=== PATIENT | male | born 1945 | race Caucasian/White ===

== ENCOUNTER 2018-01-16 18:38 | Inpatient (IN) ==
[2018-01-16] MEDS ORDERED: 0.9 % Sodium Chloride 1,000 ML ONE ×2 (18:41→18:56)
[2018-01-16] MEDS ORDERED: *HR* Heparin 5,000 UNIT/ML VIAL ONE (18:41)
[2018-01-16] MEDS ORDERED: Aspirin 81 MG TAB.CHEW PO ONE (18:43)
[2018-01-16] MEDS ORDERED: *HR* Heparin 5,000 UNIT/ML VIAL IVP ONE (18:43)
[2018-01-16] MEDS ORDERED: *HR* Ticagrelor 90 MG TABLET PO ONE (18:43)
[2018-01-16] MEDS ORDERED: Aspirin 81 MG TAB.CHEW ONE (18:43)
[2018-01-16] MEDS ORDERED: *HR* Heparin 5,000 UNIT/ML VIAL IVP PRN ×2 (18:43)
[2018-01-16] MEDS ORDERED: *HR* Ticagrelor 90 MG TABLET ONE (18:43)
[2018-01-16] MEDS ORDERED: Heparin 25,000 UNIT/500 ML D5W 25,000 UNIT/500 ML BAG IVC SCH (18:45)
--- NOTE | 2018-01-16 18:56 | Emergency Department Note ---
Disposition Clinical Impression: STEMI (ST elevation myocardial infarction) Qualifiers: Involved coronary artery: right coronary artery Qualified Code(s): I21.11 - ST elevation (STEMI) myocardial infarction involving right coronary artery Disposition: Admitted As Inpatient Condition: Fair Chest Pain HPI - General Chief Complaint: ED Chest Pain Stated Complaint: STEMI Time Seen by Provider: 01/16/18 18:43 Source: EMS Mode of arrival: ambulatory Limitations: no limitations Vital Signs Reviewed: Yes Nursing Notes Reviewed: Yes - History of Present Illness HPI Narrative: 72-year-old male with extensive past history of hypertension, CAD status post bypass wallstents, diabetes presents for evaluation of chest pain. Patient notes onset of chest pain was 10 minutes prior to ED arrival. Notes pain in the center of his chest rated 10 out of 10. EMS report the patient received 2 nitroglycerin which improved his pain. Patient had a prehospital EKG which was concerning for STEMI and STEMI was activated. Patient denies a nausea vomiting or diaphoresis. Does note some dyspnea. No fevers or cough. Severity scale (1-10): 7 - Related Data Home Medications Medication Instructions Recorded Confirmed Albuterol Sulfate [Proair 2 puff IH Q4H PRN 03/24/15 01/05/18 Respiclick] Budesonide/Formoterol 160/4.5 2 puff IH BIDR 03/24/15 01/05/18 [Symbicort] Metoprolol XL (24 HR) Succ [Toprol 100 mg PO DAILY 03/24/15 01/05/18 XL] Nitroglycerin [Nitrostat] 0.4 mg SL PRN PRN 03/24/15 01/05/18 Ergocalciferol (VITAMIN D2) 50,000 unit PO QWEEK 05/26/15 01/05/18 [Vitamin D2 (50,000 UNIT)] Aspirin 81 mg PO DAILY 09/22/15 01/05/18 Bumetanide [Bumex] 2 mg PO DAILY 07/22/16 01/05/18 Cyanocobalamin (B-12) [Vitamin B12] 1,000 mcg IM QMONTH 07/22/16 01/05/18 Diltiazem CD (24hr) [Cardizem CD] 120 mg PO DAILY 07/22/16 01/05/18 Gabapentin [Neurontin] 300 mg PO BID 07/22/16 01/05/18 Insulin Lispro Protamin/Lispro 8 unit SQ QPM 07/22/16 01/05/18 [Humalog Mix 75-25 Vial] Insulin Lispro Protamin/Lispro 16 unit SQ QAM 07/22/16 01/05/18 [Humalog Mix 75-25 Vial] Ipratropium/Albuterol Neb [Duoneb] 3 ml IH Q6HR PRN 07/22/16 01/05/18 Potassium Chloride [Klor-Con 10 meq PO BID 07/22/16 01/05/18 Sprinkle] Repaglinide [Prandin] 1 mg PO BID 07/22/16 01/05/18 Saxagliptin HCl [Onglyza] 2.5 mg PO DAILY 07/22/16 01/05/18 Insulin Glargine,Hum.rec.anlog 56 unit SQ QAM 01/11/17 01/05/18 [Lantus Solostar] Azelastine 0.1% Nasal [place] 1 puff NS BID 11/15/17 01/05/18 [Astelin] Previous Rx's Medication Instructions Recorded Levothyroxine [Synthroid] 150 mcg PO DAILY #30 tablet 07/05/17 Dexamethasone 1 mg PO DAILY #90 tab 09/06/17 Ondansetron HCl [Zofran] 4 mg PO Q8H PRN #30 tablet 09/06/17 HYDROcodone BIT/Homatropine LQ 5 mg PO Q6H PRN 14 Days #240 ml 01/05/18 [Hycodan Syrup] Miconazole 2% cream [Remedy 5 ml TP TID #1 bottle 01/05/18 Antifungal] Oxycodone HCl/Acetaminophen 1 each PO Q4H PRN 30 Days #90 01/05/18 [Percocet 5-325 mg Tablet] tablet Allergies Allergy/AdvReac Type Severity Reaction Status Date / Time Amoxicillin Allergy Hives Verified 01/16/18 18:39 adhesive AdvReac Rash Verified 01/16/18 18:39 All systems ED: reviewed and negative except as stated. Constitutional: Denies: fever Cardiovascular: Reports: chest pain Respiratory: Reports: dyspnea Gastrointestinal: Denies: abdominal pain, nausea, vomiting Chest Pain PMH - Past Medical History Medical history: Reports: cancer, coronary artery disease, DVT, diabetes, hyperlipidemia, hypertension, migraine, myocardial infarction, other Surgical history: Reports: cataract, coronary bypass (CABG), orthopedic, other, other Psychiatric history: Reports: no psych history - Social History Smoking Status: Former smoker Alcohol use: Reports: none, recent Drug use: Reports: none Physical Exam - General Limitations: no limitations General appearance: alert, in no apparent distress, in distress - Head Head exam: atraumatic, normocephalic, normal inspection - Eye Eye exam: Present: normal appearance, PERRL, EOMI - ENT ENT exam: normal exam, mucous membranes moist - Neck Neck exam: Present: normal inspection, full ROM, trachea midline - Chest Chest inspection: Present: normal inspection, symmetric chest wall rise - Respiratory Respiratory exam: Present: normal lung sounds bilaterally. Absent: respiratory distress - Cardiovascular Cardiovascular exam: Present: regular rate, normal rhythm. Absent: systolic murmur - Abdominal Exam Abdominal exam: Present: soft, Non-Tender - Extremities Exam Extremities exam: Present: normal inspection, pedal edema (Trace bilateral) - Expanded Lower Extremity Exam Neurovascular/Tendon exam: Present: normal capillary refill - Neurological Exam Neurological exam: Present: alert - Skin Skin exam: Present: warm, dry, intact, normal color Course Course Narrative: Patient seen and examined. Patient does have a 12-lead concerning for inferior STEMI. This was discussed again with the furnace door tender. Patient had STEMI orders activated. Patient's blood pressure stable. Patient is requiring increased oxygen requirement from his baseline. 6 L nasal cannula currently. Patient denies any history of GI bleeding or recent blood in his stool or dark stools. Patient will be heparinized as well as given antiplatelet medications prior to intervention. - Consultations Consultation #1: Discuss the EKG with Shasta. Time: 18:59 Vital Signs Temperature 98.2 F 01/16/18 18:40 Pulse Rate 100 01/16/18 18:40 Respiratory Rate 22 01/16/18 18:40 Blood Pressure 108/60 01/16/18 18:40 O2 Sat by Pulse Oximetry 92 01/16/18 18:40 Temperature 98.4 F 01/16/18 20:15 Pulse Rate 84 01/16/18 20:15 Respiratory Rate 16 01/16/18 20:15 Blood Pressure 139/77 01/16/18 20:15 O2 Sat by Pulse Oximetry 95 01/16/18 20:15 Oxygen Delivery Oxygen Delivery Nasal Cannula Chest Pain - MDM Narrative Medical decision making narrative: Patient as well as family is aware of the patient's STEMI. Patient will be taken to the Transit Planning Manager. - EKG Data EKG attestation: Yes I reviewed and interpreted this EKG. EKG shows normal: sinus rhythm Rate: normal Rhythm: NSR ST segment elevation in: II, III, aVF T wave inversions noted in: aVL, v1, v2, v3 Interpretation: acute CA
[2018-01-16] MEDS ORDERED: *HR* Heparin 10,000 UNIT/10 ML VIAL ONE (18:57)
[2018-01-16] MEDS ORDERED: Heparin 1,000 UNITS/500 mL 500 ML ONE (18:57)
[2018-01-16] MEDS ORDERED: ISOVUE-370 200 ML INFUS..BTL IV ONE ×2 (18:57→19:41)
[2018-01-16] MEDS ORDERED: Nitroglycerin 1,000 MCG/10 ML VIAL IV ONE (18:57)
--- NOTE | 2018-01-16 18:59 | Emergency Department Note ---
Disposition Clinical Impression: STEMI (ST elevation myocardial infarction) Disposition: Admitted As Inpatient General Adult HPI - General Chief complaint: ED Chest Pain Stated complaint: STEMI Time Seen by Provider: 01/16/18 18:43 Source: EMS - History of Present Illness Pain Scale: 7 - Related Data Home Medications Medication Instructions Recorded Confirmed Albuterol Sulfate [Proair 2 puff IH Q4H PRN 03/24/15 01/05/18 Respiclick] Budesonide/Formoterol 160/4.5 2 puff IH BIDR 03/24/15 01/05/18 [Symbicort] Metoprolol XL (24 HR) Succ [Toprol 100 mg PO DAILY 03/24/15 01/05/18 XL] Nitroglycerin [Nitrostat] 0.4 mg SL PRN PRN 03/24/15 01/05/18 Ergocalciferol (VITAMIN D2) 50,000 unit PO QWEEK 05/26/15 01/05/18 [Vitamin D2 (50,000 UNIT)] Aspirin 81 mg PO DAILY 09/22/15 01/05/18 Bumetanide [Bumex] 2 mg PO DAILY 07/22/16 01/05/18 Cyanocobalamin (B-12) [Vitamin B12] 1,000 mcg IM QMONTH 07/22/16 01/05/18 Diltiazem CD (24hr) [Cardizem CD] 120 mg PO DAILY 07/22/16 01/05/18 Gabapentin [Neurontin] 300 mg PO BID 07/22/16 01/05/18 Insulin Lispro Protamin/Lispro 8 unit SQ QPM 07/22/16 01/05/18 [Humalog Mix 75-25 Vial] Insulin Lispro Protamin/Lispro 16 unit SQ QAM 07/22/16 01/05/18 [Humalog Mix 75-25 Vial] Ipratropium/Albuterol Neb [Duoneb] 3 ml IH Q6HR PRN 07/22/16 01/05/18 Loratadine/Pseudophed (12 HR) 1 each PO DAILY 07/22/16 01/05/18 [Claritin D (12HR)] Potassium Chloride [Klor-Con 10 meq PO BID 07/22/16 01/05/18 Sprinkle] Repaglinide [Prandin] 1 mg PO BID 07/22/16 01/05/18 Saxagliptin HCl [Onglyza] 2.5 mg PO DAILY 07/22/16 01/05/18 Insulin Glargine,Hum.rec.anlog 56 unit SQ QAM 01/11/17 01/05/18 [Lantus Solostar] Azelastine 0.1% Nasal [place] 1 puff NS BID 11/15/17 01/05/18 [Astelin] Previous Rx's Medication Instructions Recorded Pen Needle, Diabetic [Sure Comfort] 1 each MC QMONTH #10 dis.needle 03/24/15 Syringe [Syringe] 3 ml IM QMONTH #10 syringe 03/24/15 Levothyroxine [Synthroid] 150 mcg PO DAILY #30 tablet 07/05/17 Dexamethasone 1 mg PO DAILY #90 tab 09/06/17 Ondansetron HCl [Zofran] 4 mg PO Q8H PRN #30 tablet 09/06/17 MethylPREDNISolone 4 mg PO AD #21 tab 12/05/17 [MethylPREDNISolone Dose Pack] HYDROcodone BIT/Homatropine LQ 5 mg PO Q6H PRN 14 Days #240 ml 01/05/18 [Hycodan Syrup] Hydrocolloid Dressing [Duoderm] 1 each TP DAILY #30 bandage 01/05/18 Hydrocortisone 1% CREAM [Cortaid] 28 appl TP TID PRN #1 bottle 01/05/18 Miconazole 2% cream [Remedy 5 ml TP TID #1 bottle 01/05/18 Antifungal] Oxycodone HCl/Acetaminophen 1 each PO Q4H PRN 30 Days #90 01/05/18 [Percocet 5-325 mg Tablet] tablet Allergies Allergy/AdvReac Type Severity Reaction Status Date / Time Amoxicillin Allergy Hives Verified 01/16/18 18:39 adhesive AdvReac Rash Verified 01/16/18 18:39 Past Medical History - Past Medical History Medical history: Reports: cancer, coronary artery disease, DVT, diabetes, hyperlipidemia, hypertension, migraine, myocardial infarction, other Surgical history: Reports: cataract, coronary bypass (CABG), orthopedic, other, other Psychiatric history: Reports: no psych history - Social History Smoking Status: Former smoker Smokeless Tobacco Status: No Alcohol use: Reports: none, recent Drug use: Reports: none Physical Exam - General General appearance: alert, in no apparent distress Course Vital Signs Temperature 98.2 F 01/16/18 18:40 Pulse Rate 100 01/16/18 18:40 Respiratory Rate 22 01/16/18 18:40 Blood Pressure 108/60 01/16/18 18:40 O2 Sat by Pulse Oximetry 92 01/16/18 18:40 Temperature 98.2 F 01/16/18 18:40 Pulse Rate 100 01/16/18 18:40 Respiratory Rate 22 01/16/18 18:40 Blood Pressure 108/60 01/16/18 18:40 O2 Sat by Pulse Oximetry 92 01/16/18 18:40 Oxygen Delivery Oxygen Delivery Nasal Cannula Attestation Statement - Attestation Attestation: I examined this patient and my medical decision-making was reviewed with the Resident Physician. I agree with the documented findings, disposition and treatment plan as described except to the extent set forth below. 72 year old male prsent to the ED via EMS, pre-hospital EKG shows a possible inferior STEMI. Pre-hospital STEMI alert has been called and Dr. Vegas intervential construction checker has been consulted and labelling machine operator has been called in. Patient family has been updated and he did become hypoxic to 78% at one point but repositioning and increase in oxygen to 6LNC he has come back to 95%. He typically wear bipap at night. Bárbara has a history of CABG 17 years ago. He has been adimtted to interventional cardiology for labelling machine operator.
--- NOTE | 2018-01-16 19:18 | Cardiology History & Physical ---
Date of Encounter: 01/16/18 Time of Encounter: 19:15 Assessment and Plan (1) STEMI (ST elevation myocardial infarction) Current Visit: Yes Status: Acute Inferior IN status post CABG in 2001, risks benefits and alternatives discussed in detail with the patient and he agrees to proceed with a left heart catheterization The assessment and plan as outlined above was discussed with the patient and/or family members who expressed understanding and agreement. All questions were answered. Qualifiers: Involved coronary artery: right coronary artery Qualified Code(s): I21.11 - ST elevation (STEMI) myocardial infarction involving right coronary artery History of Present Illness HPI: Mr. Flores is a 72 year old male with h/o CABG 2001 after PCI here with new onset chest pain started few hours before arriving to the ED. Inferior ST elevations on EKG. patient currently has been diagnosed with metastatic lung cancer and has a history of anemia. Risks benefits and alternatives of a left heart catheterization were discussed patient detail including , stroke, IN , renal failure, vascular complications. Patient has agreed to proceed Past Med Surg Social Fam HX - Past Medical History Medical history: cancer, coronary artery disease, DVT, diabetes, hyperlipidemia , hypertension, migraine, myocardial infarction, other Additional medical history: GEORGE Psychiatric history: no psych history - Past Surgical History Surgical History: cataract, coronary bypass (CABG), orthopedic, other, other Additional surgical history: cardioversion. cardiac ablation. tonsillectomy - Social History Smoking Status: Former smoker Smokeless Tobacco Status: No Alcohol use: none, recent Drug use: none - Family History Mother Adopted: Yes Family Member Ethnicity: Non- Living Status: Hx Family Cardiac Disorders: No Hx Family Respiratory Disorders: No Hx Family Cancer: Yes (ovarian/uterine) Hx Family GI Disorders: Yes (diverticulitis) Hx Family Endocrine Disorder: No Hx Family Neuromuscular Disorders: No Hx Family Neurologic Disorders: No Hx Family HEENT Disorders: No Hx Family Autoimmune Disorders: Yes (psoriasis) Medications and Allergies Albuterol Sulfate [Proair Respiclick] 2 puff IH Q4H PRN 03/24/15 [History] Budesonide/Formoterol 160/4.5 [Symbicort] 2 puff IH BIDR 03/24/15 [History] Metoprolol XL (24 HR) Succ [Toprol XL] 100 mg PO DAILY 03/24/15 [History] Nitroglycerin [Nitrostat] 0.4 mg SL PRN PRN 03/24/15 [History] Ergocalciferol (VITAMIN D2) [Vitamin D2 (50,000 UNIT)] 50,000 unit PO QWEEK [History] Aspirin 81 mg PO DAILY 09/22/15 [History] Bumetanide [Bumex] 2 mg PO DAILY 07/22/16 [History] Cyanocobalamin (B-12) [Vitamin B12] 1,000 mcg IM QMONTH 07/22/16 [History] Diltiazem CD (24hr) [Cardizem CD] 120 mg PO DAILY 07/22/16 [History] Gabapentin [Neurontin] 300 mg PO BID 07/22/16 [History] Insulin Lispro Protamin/Lispro [Humalog Mix 75-25 Vial] 8 unit SQ QPM 07/22/16 [ History] Insulin Lispro Protamin/Lispro [Humalog Mix 75-25 Vial] 16 unit SQ QAM 07/22/16 [History] Ipratropium/Albuterol Neb [Duoneb] 3 ml IH Q6HR PRN 07/22/16 [History] Potassium Chloride [Klor-Con Sprinkle] 10 meq PO BID 07/22/16 [History] Repaglinide [Prandin] 1 mg PO BID 07/22/16 [History] Saxagliptin HCl [Onglyza] 2.5 mg PO DAILY 07/22/16 [History] Insulin Glargine,Hum.rec.anlog [Lantus Solostar] 56 unit SQ QAM 01/11/17 [ History] Levothyroxine [Synthroid] 150 mcg PO DAILY #30 tablet 07/05/17 [Rx] Dexamethasone 1 mg PO DAILY #90 tab 09/06/17 [Rx] Ondansetron HCl [Zofran] 4 mg PO Q8H PRN #30 tablet 09/06/17 [Rx] Azelastine 0.1% Nasal [place] [Astelin] 1 puff NS BID 11/15/17 [History] HYDROcodone BIT/Homatropine LQ [Hycodan Syrup] 5 mg PO Q6H PRN 14 Days #240 ml 01/05/18 [Rx] Miconazole 2% cream [Remedy Antifungal] 5 ml TP TID #1 bottle 01/05/18 [Rx] Oxycodone HCl/Acetaminophen [Percocet 5-325 mg Tablet] 1 each PO Q4H PRN 30 Days #90 tablet 01/05/18 [Rx] 3 Allergy/AdvReac Type Severity Reaction Status Date / Time Amoxicillin Allergy Hives Verified 01/16/18 18:39 adhesive AdvReac Rash Verified 01/16/18 18:39 All Systems Review: The remainder of the systems were reviewed and are negative Physical Examination Vital Signs, Last 4 Hours Temp Pulse Resp BP Pulse Ox 01/16/18 18:58 93 151/87 97 01/16/18 18:50 99 24 136/75 93 01/16/18 18:48 97 22 108/60 94 01/16/18 18:40 98.2 F 100 22 108/60 92 General: Conversant, No Apparent Distress HEENT: Atraumatic, Normocephaly, Mucus Membranes Moist Neck: No JVD, Normal carotid pulses Cardiac: Reg Rate and Rhythm, Normal S1 and S2, No Murmur Lungs: Normal Breath Sounds, No Wheeze, Rales, Rhonchi Neuro: Alert and responsive, No focal deficits noted Abdomen: Soft, Non-Tender Skin: No rashes noted on visualized skin Musculoskeletal: No Chest Wall Tenderness Extremities: No Clubbing, No Cyanosis, No Edema, Normal Pulses
[2018-01-16] MEDS ORDERED: *HR* Midazolam HCl 2 MG/2 ML VIAL ONE (19:24)
[2018-01-16] MEDS ORDERED: *HR* FentaNYL (PF) 100 MCG/2 ML VIAL ONE (19:24)
[2018-01-16] MEDS ORDERED: Tirofiban 12.5 MG/250ML 12.5 MG/250 ML BAG ONE (19:51)
[2018-01-16] MEDS: Tirofiban 12.5 MG/250ML 12.5 MG/250 ML BAG IVC SCH (20:15)
--- NOTE | 2018-01-16 20:24 | Invasive Diagnostic Lab Proc ---
Name: Marichuy Flores Date of Study: 01/16/2018 Date: 1945 Ht: 71.0in Medical Record#: [id number] Age: 72 Wt: 339.51lb Gender: Male BSA: 2.64 Order #: [id number] BMI: 47.37 Physicians Procedure Physician: Uli Vegas MD Referring MD: Referring MD: Staff Name Position Time In NavidLisa RN Monitor 07:20 PM Placido Davies RN Coal Dumping Equipment Operator 07:20 PM Ruthann Ramos RT (R) Scrub 07:20 PM Indications Indication STEMI Procedures Performed Procedure L HRT ART/GRFT ANGIO Pre-Procedure Checklist Informed consent is complete signed and on chart. H&P is on chart. ID band is on and ID verified with patient. Patient NPO for procedure The procedure was described for the patient and questions were answered. ECG is on chart. Plan of Care Patient will tolerate the procedure without complications. Adequate level of comfort will be maintained. Hemodynamics will remain stable Patient will recover from procedure without complications. Respiratory function will be maintained. Cardiac rhythm will remain stable. Patient temperature will be maintained. Patient and/or family have verbalized understanding of the procedure. Patient Education Chief Complaint/Reason for Test: Cardiac Cath Developmental Category: Geriatric (65+ years) Developmentally Appropriate for Age: Yes Learning Barriers: None Education Needs: Procedure Education Method: Verbal Information Taught: Cardiac Cath Educational Evaluation: Able to repeat information Intravenous Access Time IV Size Location DC'd Fluid/Drip Rate Units RN 16 g Rt Antecubital 16 g Lt Antecubital Allergies Acerola/Bioflavonoid/Hesperi Ascorbic Acid Amoxicillin adhesive Vital Signs Time BP (mmHg) HR (bpm) O2 Sat. RR (bpm) LOC 07:21 PM / % 5 = Fully awake and oriented or at pre-proc level 07:21 PM / % 4 = Oriented but drowsy 07:36 PM / % 4 = Oriented but drowsy 07:23 PM 164 / 98 87 97 % 26 07:24 PM 169 / 90 72 99 % 28 07:30 PM 144 / 87 90 95 % 28 07:34 PM 148 / 101 60 95 % 32 07:39 PM 155 / 92 88 100 % 32 07:44 PM 160 / 81 92 100 % 31 07:50 PM 177 / 92 85 99 % 28 07:55 PM 170 / 89 83 98 % 32 07:51 PM / % 5 = Fully awake and oriented or at pre-proc level Procedural Medications Time Medication Dose Units Method Given By 07:20 PM Oxygen 10 L/min Oxy Mask Placido Davies RN 07:25 PM Oxygen 4 L/min Oxy Mask Placido Davies RN 07:25 PM Lidocaine 2% 10 ml Subcutaneous Uli Vegas MD 07:26 PM Versed 0.5 mg Intravenous Placido Davies RN 07:26 PM Fentanyl 25 mcg Intravenous Placido Davies RN 07:32 PM Heparin 3500 units Intravenous Placido Davies RN 07:51 PM Aggrastat Bolus: 75 ml Intravenous Placido Davies RN 07:51 PM Aggrastat 12.5mg/250ml 27 ml/hr Intravenous 27 ASA Classification: Emergent Procedure: ASA score is assumed Rosalee Score Preprocedure Postprocedure Activity 2- Moves 4 extremities sustained head lift Activity 2- Moves 4 extremities sustained head lift Circulation 2- SBP +/= 20 points of pre-anesthetic level Circulation 2- SBP +/= 20 points of pre-anesthetic level Consciousness 2- Awake and alert oriented x 3 Consciousness 2- Awake and alert oriented x 3 O2 Saturation 2- Able to maintain O2 satruation of 92% on room air O2 Saturation 2- Able to maintain O2 satruation of 92% on room air Respiratory 2- Able to deep breathe and cough well Respiratory 2- Able to deep breathe and cough well Total Score 10 Total Score 10 Contrast Agent: Isovue Diagnostic Contrast: 210 ml Total Contrast: 210 ml Fluoro Dose: 44188 mGy Activated Clotting Time Time Seconds to Clot 07:31 PM 176 Procedure Log Time Note Enter By 07:12 PM Pt arrived to laborer 2 at 19:12 ifeoma 07:20 PM CathStat 07:20 PM Vitals capture started with the following parameters, Patient=Adult, Interval=5 min, Initial Tlkxsrrg=764 mmHg, Deflation Rate=5 mmHg, Cuff placed on Right Arm 07:20 PM Physician arrived 19:20 07:20 PM Meet and greet completed mm 07:20 PM Sign in performed according to hospital policy. [facility] PM Procedure start 19:20 fox 07:20 PM Lisa Shoemaker RN Position: Monitor Time in: 19:20 07:20 PM Placido Davies RN Position: Coal Dumping Equipment Operator Time in: 19: 07:20 PM Ruthann Ramos RT (R) Position: Scrub Time in: 19:20 07: PM Time: 19:20 Oxygen on at 10 L/min per Oxy Mask by Placido Davies RN eranader 07: PM Time: 19:21 Patient comfortable and pain free: Yes : PM Time: 19:21LOC: 5 = Fully awake and oriented or at pre-proc level 07: PM Clinical Presentation: STEMI or equivalent 07:22 PM NIBP STAT measurement started. 07:23 PM HR=87 bpm, NHKM=099/98 mmhg, SpO2=97.0 %, Resp=26 B/min 07:24 PM Vitals capture started with the following parameters, Patient=Adult, Interval=5 min, Initial Mgzmxhxv=795 mmHg, Deflation Rate=5 mmHg, Cuff placed on Right Arm 07:24 PM HR=72 bpm, CJLE=574/90 mmhg, SpO2=99.0 %, Resp=28 B/min 07:25 PM Time: 19:25 Oxygen on at 4 L/min per Oxy Mask [facility] PM Time out performed according to hospital policy : PM Time: 19:25 10 ml Lidocaine 2% to right groin Subcutaneous Given by Uli Vegas MD 07: PM Micro-Introducer Kit utilized for sheath placement : PM Time: 19: Versed 0.5 mg Intravenous Given by Placido Davies RN eranader : PM Time: 19: Fentanyl 25 mcg Intravenous Given by Placido Davies RNnader : PM Access obtained by percutaneous puncture. 6Fr 10cm Terumo Yolo sheath placed in right Femoral artery. [id number] : PM 0.035 145cm Navilyst 3mmJ wire [id number] :28 PM 5Fr FL 4 catheter inserted over the wire DNC : PM Wire removed tsoummers 07:29 PM LCA angiography performed in multiple views. 07:30 PM HR=90 bpm, RBXP=935/87 mmhg, SpO2=95.0 %, Resp=28 B/min 07:30 PM Catheter removed 07:30 PM 5Fr FR 4 catheter inserted over the wire [facility] 07:31 PM Inflation device was opened. 07:31 PM At 19:31 the ACT was 176 seconds. 07:31 PM Recorded Pressure: Ao, HR=88, Condition=Condition 1 (Aorta) Ao 102/50/75 07:31 PM RCA angiography performed in multiple views. 07:32 PM SVG to the RPDA angio performed in multiple views. 07:32 PM Time: 19:32 Heparin 3500 units Intravenous Given by Placido Davies RN 07:33 PM Recorded Pressure: Ao, HR=39, Condition=Condition 1 (Aorta) Ao 149/90/120 07:33 PM SVG to the 1st OM angio performed in multiple views. 07:33 PM Coronary Dominance: right 07:34 PM HR=60 bpm, CYQC=871/101 mmhg, SpO2=95.0 %, Resp=32 B/min 07:36 PM Time: 19:21LOC: 4 = Oriented but drowsy 07:36 PM Time: 19:21 Patient comfortable and pain free: Yes 07:37 PM Recorded Pressure: Ao, HR=91, Condition=Condition 1 (Aorta) Ao 144/100/123 07:38 PM Catheter removed 07:38 PM 5Fr IM catheter inserted over the wire [id number] 07:39 PM HR=88 bpm, OKGV=639/92 mmhg, ReF7=466.0 %, Resp=32 B/min 07:40 PM 0.035 260cm Navilyst 3mmJ wire [id number] mm 07:41 PM Catheter removed 07:41 PM 5Fr FR 4 catheter inserted over the wire [facility] nader 07:42 PM Catheter removed oumm 07:42 PM IM catheter reinserted 07:43 PM wire removed 07:44 PM Left SHYANN to the LAD angio performed in multiple views. 07:44 PM Recorded Pressure: Ao, HR=89, Condition=Condition 1 (Aorta) Ao 119/86/103 07:44 PM HR=92 bpm, GPQF=111/81 mmhg, BkP7=340.0 %, Resp=31 B/min 07:45 PM Catheter removed 07:46 PM 5Fr MPA catheter inserted over the wire [id number] 07:46 PM pt states he is pain free, all chest pain has resolved tsmm 07:47 PM Recorded Pressure: Ao, HR=92, Condition=Condition 1 (Aorta) Ao 144/100/122 07:48 PM SVG to the RPDA angio performed in multiple views again 07:50 PM HR=85 bpm, HMMJ=664/92 mmhg, SpO2=99.0 %, Resp=28 B/min 07:51 PM Catheter removed 07:51 PM Time: 19:36 Patient comfortable and pain free: Yes mm 07:51 PM Time: 19:36LOC: 4 = Oriented but drowsy tsou 07:51 PM Time: 19:51 Aggrastat Bolus: 75 ml Intravenous Given by Placido Davies RN Cortes pump oumm 07:52 PM Recorded Pressure: LV, HR=49, Condition=Condition 1 (Left Ventricle) LV 142/28/55 07:52 PM Recorded Pressure: LV, HR=39, Condition=Condition 1 (Left Ventricle) LV 159/10/109 07:52 PM Time: 19:51 Aggrastat 12.5mg/250ml 27 ml/hr Intravenous Given by 27 Cortes pump 07:53 PM 5Fr Pigtail catheter inserted over the wire [facility] 07:53 PM Recorded Pressure: LV, Ao, HR=65, Condition=Condition 1 (Left Ventricle) LV 118/33/57, (Aorta) Ao 134/80/110 07:53 PM Catheter selectively placed in left ventricle oumm 07:53 PM Bolus angiogram of left Ventricle complete: 10 ml/sec for a total of 30 mls tsoumm 07:53 PM Catheter removed 07:54 PM Wire removed oumm 07:55 PM Bolus angiogram of right Femoral complete: 2 ml/sec for a total of 4 mls [facility] 07:55 PM Procedure completed at 19:55 01/16/2018[facility] 07:55 PM Did you address CALVIN flow and Dominance? Yes [facility] 07:55 PM HR=83 bpm, SJZU=612/89 mmhg, SpO2=98.0 %, Resp=32 B/min 07:56 PM Sign out completed: Radiation Dose 53113.99 mGy, 35119 cGy/cm2 Fluoro Time: 10.7 Isovue 370 - 200ml contrast 210 ml given by Uli Vegas MD. Complications: NoneCardiac Rehab Consult needed: YesConfirmed administered medications: Yes [facility] 07:56 PM Isovue 370 - 200ml,2 Bottle(s) used. [facility] 07:57 PM Estimated Blood Loss: less than 50cc [facility] 07:57 PM Post ECG Atrial Fibrillation [facility] 07[facility] PM Post Blood Pressure 170/89 [facility] 07:57 PM Information taught Cardiac Cath and Angioseal [facility] 07:57 PM Education needs Procedure, Plan of Care, and Responsibilities of Patient in Care [facility] 07:58 PM Learning barriers :None [facility] 07:58 PM Education Methods Verbal [facility] 07:58 PM Education evaluation Able to repeat information [facility] 07:58 PM Site status No bleeding/hematoma - Rt Groin as reported by Ruthann Ramos RT (R) at 19:58 [facility] 07:58 PM Arterial sheath pulled, Angio-seal closure device used and was Successful [id number] S/N. [facility] 08:01 PM Opsite applied [facility] 08:01 PM Plavix, Effient or Brilinta given Yes 180 brilinta per ED [facility] 08:02 PM Lesion found in Proximal RCA. Pre Stenosis: 100 Pre CALVIN Flow: tsoummers 08:02 PM Lesion found in Proximal LMCA. Pre Stenosis: 70 Pre CALVIN Flow: tsoummers 08:02 PM Lesion found in Proximal LAD. Pre Stenosis: 100 Pre CALVIN Flow: tsoummers 08:02 PM Lesion found in Proximal Circumflex. Pre Stenosis: 50 Pre CALVIN Flow: tsoummers 08:02 PM Proximal Left Anterior Descending Coronary Artery with 100% stenosis. If graft is supplying this territory, 0 % stenosis. [facility] 08:02 PM Left Main Coronary Artery with 70% stenosis [facility] 08:07 PM Time: 19:51LOC: 5 = Fully awake and oriented or at pre-proc level [facility] 08:07 PM Time: 19:51 Patient comfortable and pain free: Yes [facility] 08:08 PM Circumflex, Obtuse Marginal, Left Posterior Descending, and Left Posterolateral Coronary Arteries with 50 % stenosis. If graft is supplying this area, 0 % stenosis tsoummers 08:08 PM Right Coronary, Right Posterior Descending Arteries with Right Posterolateral and Acute Marginal branches with 100 % stenosis. If graft is supplying this area, 60 % stenosis [facility] 08:08 PM Patient out of room: 20:08 [facility] 08:09 PM Report given to Marquise STOVALL Pt [facility]. 20:[facility]15 PM Family placed in consult room. massimo Complications Complication None Hemodynamics Pressures Site Systolic/A Wave Diastolic/V Wave Mean AO 102 50 75 AO 149 90 120 AO 144 100 123 AO 119 86 103 AO 144 100 122 LV 142 28 55 LV 159 10 109 LV 118 33 57 AO 134 80 110 Post Procedure Information Blood Pressure: 170/89 mmHg Rhythm: Atrial Fibrillation Post procedural instructions were given Closure Device Time Device Success/Fail 01/16/2018 7:58:00 PM Angio-Seal VIP Successful Site Checks Time Location Status Staff Sheath In? Note 07:58 PM Rt Groin No bleeding/hematoma Ruthann Ramos RT (R) Pulses Updated by Lisa Shoemaker RN on 01/16/2018 8:16:55 PM electronically signed on 01/16/2018 8:18:58 PM with status of Final
[2018-01-16] MEDS ORDERED: D5% in Water 1,000 ML IVC PRN (20:37)
[2018-01-16] MEDS ORDERED: Dextrose Gel 15 GM/37.5 ML TUBE PO PRN ×2 (20:37)
[2018-01-16] MEDS ORDERED: *HR* Dextrose 50 % in Water (Syg) 50 ML SYRINGE IVP PRN (20:37)
[2018-01-16] MEDS ORDERED: Levofloxacin 750 MG/150 ML 750 MG/150 ML BAG IVPB SCH (21:00)
[2018-01-16 21:28] LABS: Basophils # 0.1 K/mcL (0.0-0.2); Basophils % 1.3 %; Eosinophils # 0.5 K/mcL (0.0-0.6); Eosinophils % 4.8 %; Hematocrit 38.6 % (37.5-50.1); Hemoglobin 12.2 g/dL (12.9-16.9); Immature Granulocytes % 1.3 % (0-4); Lymphocytes # 1.6 K/mcL (0.6-4.6); Mean Corpuscular HGB Conc 31.6 g/dL (31.6-35.5); Mean Corpuscular Hemoglobin 30.8 pg (28.0-33.3); Mean Corpuscular Volume 97.5 fL (83.0-100.0); Mean Platelet Volume 9.3 fL (9.4-12.4); Monocytes # 1.2 K/mcL (0.0-1.3); Monocytes % 10.3 %; Neutrophils # 7.6 K/mcL (1.6-8.9); Platelet Count 292 K/mcL (140-400); Red Blood Count 3.96 M/mcL (4.19-5.50); Red Cell Distribution Width 15.9 % (11.5-14.5); Segmented Neutrophils % 68.3 %
[2018-01-16 21:33] LABS: INR 1.1; Prothrombin Time 12.9 Seconds (9.4-12.1)
[2018-01-16] MEDS: Nitroglycerin 25 MG/250 ML INFUS..BTL IVC SCH (21:44)
[2018-01-16 21:51] LABS: Activated Partial Thrombo Time 114.6 Seconds (26.0-36.0)
[2018-01-16 21:52] LABS: BUN/Creatinine Ratio 17 (6-26); Blood Urea Nitrogen 18 mg/dL (8-23); Calcium 10.3 mg/dL (8.6-10.3); Carbon Dioxide 26 mEq/L (23-29); Chloride 99 mEq/L (98-107); Glucose 194 mg/dL (70-105); Magnesium 1.6 mg/dL (1.6-2.6); Osmolality,Calculated 285 (280-300); Potassium 3.8 mEq/L (3.5-5.1); Sodium 134 mEq/L (136-145); eGFR For Non-African Americans > 60 (> 60)
[2018-01-16] MEDS: 0.9 % Sodium Chloride 1,000 ML IVC SCH (21:53)
[2018-01-16 21:54] LABS: Heparin anti-factor XA UFH 0.76 IU/mL (0.30-0.70)
[2018-01-16] MEDS ORDERED: Albuterol 2.5 MG/3 ML NEBULIZER IH PRN (22:02)
[2018-01-16] MEDS: Insulin LISPRO 300 UNITS/3 ML VIAL SQ SCH (23:15)
[2018-01-16] MEDS: MetroNIDAZOLE 500 MG/100 ML 500 MG/100 ML BAG IVPB SCH (23:57)
[2018-01-17] MEDS: Tirofiban 12.5 MG/250ML 12.5 MG/250 ML BAG IVC SCH ×2 (02:09→11:16)
--- NOTE | 2018-01-17 03:20 | Internal Medicine Consult Note ---
Date of Encounter: 01/16/18 Time of Encounter: 20:30 - Assessment and plan (1) Postobstructive pneumonia Current Visit: Yes Status: Acute Assessment and plan: 1. Will order blood and sputum cultures. 2. Will treat with IV Vancomycin, Levaquin, and Flagyl to cover hospital acquired and anaerobic organisms in the setting of post-obstructive process. 3. Will also consult Pulmonology in the morning to assist in ICU care and plan for bronchoscopy in the appropriate timeframe. 4. Will provide oxygen and aerosols as needed for respiratory support. (2) STEMI (ST elevation myocardial infarction) Current Visit: Yes Status: Acute Assessment and plan: 1. Care per cardiology. Qualifiers: Involved coronary artery: unspecified coronary artery Qualified Code(s): I21.3 - ST elevation (STEMI) myocardial infarction of unspecified site (3) IDDM (insulin dependent diabetes mellitus) Current Visit: Yes Status: Chronic Assessment and plan: 1. Will place on SSI for now while npo. 2. Resume home basal insulin and adjust SSI when patient eating orally. (4) Non-small cell cancer of right lung Current Visit: Yes Status: Chronic Assessment and plan: 1. Patient follows with Dr. Ludwig. 2. Further treatment and bronchoscopy needs to be coordinated by pulmonolgy and oncology. Internal Medicine - CN: HPI - Data of Consult Consult date: 01/16/18 Requesting Physician: Uli Vegas - Consult Narrative Reason for consult: pneumonia management History of present illness: Mr. Flores is a 72 year old male who was admitted to intensive care unit by cardiology after emergency left heart catheterization for STEMI. Dr. Vegas called me and asked me to see patient in consultation and prescribe antibiotics for pneumonia. Dr. Vegas had received a phone call from the patient's primary care provider informing him the patient had multifocal pneumonia on recent imaging today. Furthermore, Dr. Vegas informed me the patient was due to have an outpatient bronchoscopy tomorrow regarding his lung cancer. I saw patient and evaluated patient in the intensive care unit and met with him and his family. He has been under the care of [facility] for lung cancer over the last couple years. He is due to start a new treatment protocol per Dr. Lduwig. He was due to have a bronchoscopy with biopsy tomorrow but then developed a STEMI today prompting emergency hospitalization and care. Presently , patient is breathing comfortably. Patient and family both report that he has been coughing purulent sputum and having increasing shortness of breath. He's had no fevers, but he has had some chills and night sweats. He has had no hemoptysis. He has had no vomiting or diarrhea. Appetite has been diminished, however. He denies any chest pain. He did have a chest x-ray as an outpatient today which revealed right upper lobe infiltrate concerning for possible postobstructive process. He also had a small right-sided effusion. Past Med Surg Social Fam HX - Past Medical History Attestation: Yes The following information was validated with the patient. Source: patient, old records reviewed, obtained from family Medical history: cancer (lung), coronary artery disease, DVT, diabetes, hyperlipidemia, hypertension, migraine, myocardial infarction, other Additional medical history: GEORGE Psychiatric history: no psych history - Past Surgical History Surgical History: cataract, coronary bypass (CABG), orthopedic, other, other Additional surgical history: cardioversion. cardiac ablation. tonsillectomy - Social History Smoking Status: Former smoker Smokeless Tobacco Status: No Alcohol use: none, recent Drug use: none Current living situation: Home, With Family - Family History Mother Adopted: Yes Family Member Ethnicity: Non- Living Status: Hx Family Cardiac Disorders: No Hx Family Respiratory Disorders: No Hx Family Cancer: Yes (ovarian/uterine) Hx Family GI Disorders: Yes (diverticulitis) Hx Family Endocrine Disorder: No Hx Family Neuromuscular Disorders: No Hx Family Neurologic Disorders: No Hx Family HEENT Disorders: No Hx Family Autoimmune Disorders: Yes (psoriasis) - Constitutional Constitutional: chills, night sweats, no fever(s) - EENT Nose, mouth and throat: no nasal congestion, no sore throat - Cardiovascular Cardiovascular ROS IM: chest pain, dyspnea, dyspnea on exertion, edema - Respiratory Respiratory: cough, dyspnea, dyspnea on exertion, chest congestion, excessive phlegm production, change in phlegm color, no hemoptysis - Gastrointestinal Gastrointestinal: nausea, no diarrhea, no hematemesis, no hematochezia, no melena, no vomiting - Genitourinary Genitourinary ROS male: no dysuria, no flank pain, no hematuria - Musculoskeletal Musculoskeletal ROS IM: no arthralgias, no back pain - Integumentary Integumentary IM: rash (BLE), no jaundice - Neurological Neurological ROS: no dizziness, no focal weakness, no frequent falls, no headache(s) - Psychiatric Psychiatric: no anxiety, no depression - Endocrine Endocrine IM: no polydipsia, no polyuria Internal Medicine - CN: Meds Albuterol Sulfate [Proair Respiclick] 2 puff IH Q4H PRN 03/24/15 [History] Budesonide/Formoterol 160/4.5 [Symbicort] 2 puff IH BIDR 03/24/15 [History] Metoprolol XL (24 HR) Succ [Toprol XL] 100 mg PO DAILY 03/24/15 [History] Nitroglycerin [Nitrostat] 0.4 mg SL PRN PRN 03/24/15 [History] Ergocalciferol (VITAMIN D2) [Vitamin D2 (50,000 UNIT)] 50,000 unit PO QWEEK [History] Aspirin 81 mg PO DAILY 09/22/15 [History] Bumetanide [Bumex] 2 mg PO DAILY 07/22/16 [History] Cyanocobalamin (B-12) [Vitamin B12] 1,000 mcg IM QMONTH 07/22/16 [History] Diltiazem CD (24hr) [Cardizem CD] 120 mg PO DAILY 07/22/16 [History] Gabapentin [Neurontin] 300 mg PO BID 07/22/16 [History] Insulin Lispro Protamin/Lispro [Humalog Mix 75-25 Vial] 12 unit SQ QAM 07/22/16 [History] Insulin Lispro Protamin/Lispro [Humalog Mix 75-25 Vial] 12 unit SQ QPM 07/22/16 [History] Ipratropium/Albuterol Neb [Duoneb] 3 ml IH Q6HR PRN 07/22/16 [History] Potassium Chloride [Klor-Con Sprinkle] 10 meq PO BID 07/22/16 [History] Repaglinide [Prandin] 1 mg PO BID 07/22/16 [History] Saxagliptin HCl [Onglyza] 2.5 mg PO DAILY 07/22/16 [History] Insulin Glargine,Hum.rec.anlog [Lantus Solostar] 56 unit SQ QAM 01/11/17 [ History] Levothyroxine [Synthroid] 150 mcg PO DAILY #30 tablet 07/05/17 [Rx] Dexamethasone 1 mg PO DAILY #90 tab 09/06/17 [Rx] Ondansetron HCl [Zofran] 4 mg PO Q8H PRN #30 tablet 09/06/17 [Rx] Azelastine 0.1% Nasal Martin [Astelin] 1 puff NS BID 11/15/17 [History] HYDROcodone BIT/Homatropine LQ [Hycodan Syrup] 5 mg PO Q6H PRN 14 Days #240 ml 01/05/18 [Rx] Miconazole 2% cream [Remedy Antifungal] 5 ml TP TID #1 bottle 01/05/18 [Rx] Oxycodone HCl/Acetaminophen [Percocet 5-325 mg Tablet] 1 each PO Q6HR PRN [History] Albuterol Sulfate [Ventolin Hfa] 2 puff IH Q6H PRN 01/17/18 [History] Nivolumab [Opdivo] 40 mg IV QMONTH 01/17/18 [History] Olopatadine HCl [Patanase] 30.5 gm NS BID 01/17/18 [History] 3 Allergy/AdvReac Type Severity Reaction Status Date / Time Amoxicillin Allergy Hives Verified 01/16/18 18:39 adhesive AdvReac Rash Verified 01/16/18 18:39 Hospitalist - CN: Exam - Constitutional Vitals: Temp Pulse Resp BP Pulse Ox 98.4 F 79 12 116/89 94 01/16/18 20:15 01/17/18 02:00 01/17/18 02:00 01/17/18 02:00 01/17/18 02:00 General appearance IM: Present: cooperative, mild distress, A&O X 3, pleasant, answers questions appropriately Exam: see below - Head Head exam: Present: normal inspection - Eye Eye exam: Present: EOMI, PERRL. Absent: scleral icterus - Neck Neck exam general surgery: Present: supple. Absent: tenderness, nuchal rigidity - Respiratory Respiratory exam: Present: decreased breath sounds, rales (right side ), rhonchi. Absent: chest wall tenderness, respiratory distress, wheezes, tachypnea - Cardiovascular Cardiovascular exam IM: Present: RRR, +S1, +S2. Absent: diastolic murmur, systolic murmur - GI/Abdominal GI/Abdominal exam IM: Present: normal bowel sounds, soft. Absent: guarding, rebound, tenderness - Extremities Exam Extremities exam IM: Present: full ROM, warm, radial pulses palpable and symmetrical. Absent: calf tenderness, joint swelling Additional comments: BLE venous stasis changes with pronounced erythema, warmth, and mild tenderness along the pretibial area - Neurological Exam Neurological exam: Present: alert, CN II-XII intact, oriented X3, no focal deficits - Psychiatric Psychiatric exam: Present: normal affect, normal mood - Skin Skin exam IM: Present: dry, erythema (BLE as noted above), intact, warm Internal Medicine - CN: Reslt - Labs CBC & Chem 7: 01/16/18 21:01 01/16/18 21:01 Labs: Short CBC 01/16/18 Range/Units 21:01 WBC 11.2 H (4.3-11.1) K/mcL Hgb 12.2 L (12.9-16.9) g/dL Hct 38.6 (37.5-50.1) % Plt Count 292 (140-400) K/mcL Neutrophils # 7.6 (1.6-8.9) K/mcL BMP 01/16/18 21:01 Sodium 134 L Potassium 3.8 Chloride 99 Carbon Dioxide 26 BUN 18 Creatinine 1.04 Glucose 194 H Calcium 10.3 Cardiac Enzymes 01/16/18 Range/Units 21:01 Troponin I 0.40 H* (< 0.04) ng/mL - ABG Interpretation ABG results: PT/INR, D-dimer PT 12.9 Seconds (9.4-12.1) H 01/16/18 21:01 - Diagnostic Studies Chest x-ray Status: image reviewed by me (RUL infiltrate/process noted) Consult Discharge Plan - Plan Referrals: Juan Abraham [Primary Care Provider] -
[2018-01-17] MEDS: Ipratropium/Albuterol Neb 3 ML IH SCH ×4 (03:41→21:13)
[2018-01-17 05:10] LABS: Basophils # 0.1 K/mcL (0.0-0.2); Eosinophils # 0.4 K/mcL (0.0-0.6); Eosinophils % 4.9 %; Hemoglobin 11.7 g/dL (12.9-16.9); Immature Granulocytes % 1.1 % (0-4); Lymphocytes # 1.1 K/mcL (0.6-4.6); Lymphocytes % 12.5 %; Mean Corpuscular HGB Conc 31.6 g/dL (31.6-35.5); Mean Corpuscular Hemoglobin 30.3 pg (28.0-33.3); Mean Corpuscular Volume 95.9 fL (83.0-100.0); Mean Platelet Volume 9.2 fL (9.4-12.4); Monocytes # 1.1 K/mcL (0.0-1.3); Monocytes % 12.1 %; Platelet Count 270 K/mcL (140-400); Red Blood Count 3.86 M/mcL (4.19-5.50); Red Cell Distribution Width 15.9 % (11.5-14.5); Segmented Neutrophils % 68.4 %
[2018-01-17 05:14] LABS: BUN/Creatinine Ratio 17 (6-26); Blood Urea Nitrogen 17 mg/dL (8-23); Carbon Dioxide 30 mEq/L (23-29); Chloride 100 mEq/L (98-107); Glucose 222 mg/dL (70-105); Osmolality,Calculated 294 (280-300); Potassium 3.5 mEq/L (3.5-5.1); Sodium 138 mEq/L (136-145); eGFR For Non-African Americans > 60 (> 60)
[2018-01-17] MEDS: Insulin LISPRO 300 UNITS/3 ML VIAL SQ SCH ×3 (05:36→18:26)
[2018-01-17] MEDS: MetroNIDAZOLE 500 MG/100 ML 500 MG/100 ML BAG IVPB SCH ×3 (08:50→23:48)
[2018-01-17] MEDS: Aspirin 81 MG TAB.CHEW PO SCH (08:50)
[2018-01-17] MEDS: *HR* Ticagrelor 90 MG TABLET PO SCH ×2 (08:50→22:17)
[2018-01-17] MEDS: 0.9 % Sodium Chloride 1,000 ML IVC SCH ×2 (08:55→23:52)
[2018-01-17] MEDS ORDERED: Perflutren Lipid Microsphere 1.3 ML in 0.9 % Sodium Chloride 8.7 ML IVP ONE (10:07)
[2018-01-17] MEDS ORDERED: Perflutren Lipid Microsphere 2 ML VIAL ONE (10:10)
[2018-01-17 11:20] LABS: ABG Base Excess 5 mEq/L (-2 to 3); ABG HCO3 30 mEq/L (21-27); ABG Oxygen Saturation 96 % (95-98); ABG PCO2 46 mmHg (35-45); ABG PH 7.42 pH Units (7.32-7.45); ABG PO2 85 mmHg (85-104); ABG TCO2 32 mEq/L (20-26)
--- NOTE | 2018-01-17 11:30 | Pulmonology Consult Note ---
<Janell Cm E - Last Filed: 01/17/18 13:56> Date of Encounter: 01/17/18 Time of Encounter: 11:29 Assessment and Plan (1) Postobstructive pneumonia Current Visit: Yes Status: Acute Blood and sputum cultures Currently on IV vancomycin, Levaquin, Flagyl to cover hospital-acquired and anaerobic organisms in the setting of postobstructive process Endoscopy is on hold at this time due to his current medical conditions Oxygen and aerosols as needed for respiratory support (2) STEMI (ST elevation myocardial infarction) Current Visit: Yes Status: Acute Care for this as per cardiology Patient underwent catheterization yesterday, there is severe three-vessel coronary artery disease with significant clot in the distal SVG to RPDA ASA and Bralinta Cardiology resumed beta gregory Qualifiers: Involved coronary artery: unspecified coronary artery Qualified Code(s): I21.3 - ST elevation (STEMI) myocardial infarction of unspecified site (3) IDDM (insulin dependent diabetes mellitus) Current Visit: Yes Status: Chronic Agent was started on 22 units of long-acting insulin as well as corrective low- dose short acting insulin regimen Continue to monitor blood sugars (4) Non-small cell cancer of right lung Current Visit: Yes Status: Chronic Patient typically follows with Dr. Ludwig Bronchoscopy has been put off at this time, oncology has been notified of this History of Present Illness Consult date: 01/16/18 Requesting physician: Jaron Brandon Reason for consult: other (ICU management and possible bronchoscopy) Chief complaint: STEMI History of present illness: Mr. Flores is a 72-year-old male who is admitted to intensive care by cardiology after emergency left heart catheter for STEMI. Dr. Vegas had received a phone call from patient's primary care provider informing him the patient had multifocal pneumonia on recent imaging is today, patient was due to have an outpatient microscopy tomorrow regarding his lung cancer He has been under the care of [facility] for lung cancer of the past couple years, he is due to start a new treatment protocol per Dr. Ludwig. Did have bronchoscopy with biopsy tomorrow when he developed a STEMI prompting emergency hospitalization care. Patient had been coughing up purulent sputum and had been short of breath prior to admission. He has had no fevers but he has had some chills and night sweats. He denies any hemoptysis vomiting or diarrhea. His appetite has been diminished. Denies any chest pain. Outpatient chest x- ray yesterday revealed right upper lobe infiltrate concerning for possible postobstructive process, he also had a small right-sided effusion. On exam today patient was resting comfortably, slightly short of breath but he said this is better than before, he stated he was hungry when he was ready to eat. Any chest discomfort that he had the past has resolved. Past Med Surg Social Fam HX - Past Medical History Medical history: cancer (lung), coronary artery disease, DVT, diabetes, hyperlipidemia, hypertension, migraine, myocardial infarction, other Additional medical history: GEORGE Psychiatric history: no psych history - Past Surgical History Surgical History: cataract, coronary bypass (CABG), orthopedic, other, other Additional surgical history: cardioversion. cardiac ablation. tonsillectomy - Social History Smoking Status: Former smoker Smokeless Tobacco Status: No Alcohol use: none, recent Drug use: none - Family History Mother Adopted: Yes Family Member Ethnicity: Non- Living Status: Hx Family Cardiac Disorders: No Hx Family Respiratory Disorders: No Hx Family Cancer: Yes (ovarian/uterine) Hx Family GI Disorders: Yes (diverticulitis) Hx Family Endocrine Disorder: No Hx Family Neuromuscular Disorders: No Hx Family Neurologic Disorders: No Hx Family HEENT Disorders: No Hx Family Autoimmune Disorders: Yes (psoriasis) Medications and Allergies Budesonide/Formoterol 160/4.5 [Symbicort] 2 puff IH BIDR 03/24/15 [History] Metoprolol XL (24 HR) Succ [Toprol XL] 100 mg PO DAILY 03/24/15 [History] Nitroglycerin [Nitrostat] 0.4 mg SL PRN PRN 03/24/15 [History] Ergocalciferol (VITAMIN D2) [Vitamin D2 (50,000 UNIT)] 50,000 unit PO QWEEK [History] Aspirin 81 mg PO DAILY 09/22/15 [History] Bumetanide [Bumex] 2 mg PO DAILY 07/22/16 [History] Cyanocobalamin (B-12) [Vitamin B12] 1,000 mcg IM QMONTH 07/22/16 [History] Diltiazem CD (24hr) [Cardizem CD] 120 mg PO DAILY 07/22/16 [History] Gabapentin [Neurontin] 300 mg PO BID 07/22/16 [History] Insulin Lispro Protamin/Lispro [Humalog Mix 75-25 Vial] 12 unit SQ QAM 07/22/16 [History] Insulin Lispro Protamin/Lispro [Humalog Mix 75-25 Vial] 12 unit SQ QPM 07/22/16 [History] Ipratropium/Albuterol Neb [Duoneb] 3 ml IH Q6HR PRN 07/22/16 [History] Potassium Chloride [Klor-Con Sprinkle] 10 meq PO BID 07/22/16 [History] Saxagliptin HCl [Onglyza] 2.5 mg PO DAILY 07/22/16 [History] Insulin Glargine,Hum.rec.anlog [Lantus Solostar] 56 unit SQ QAM 01/11/17 [ History] Azelastine 0.1% Nasal [place] [Astelin] 1 puff NS BID 11/15/17 [History] HYDROcodone BIT/Homatropine LQ [Hycodan Syrup] 5 mg PO Q6H PRN 14 Days #240 ml 01/05/18 [Rx] Oxycodone HCl/Acetaminophen [Percocet 5-325 mg Tablet] 1 each PO Q6HR PRN [History] Albuterol Sulfate [Ventolin Hfa] 2 puff IH Q6H PRN 01/17/18 [History] Levothyroxine [Synthroid] 150 mcg PO DAILY #30 tablet 01/17/18 [Rx] Nivolumab [Opdivo] 40 mg IV QMONTH 01/17/18 [History] Olopatadine HCl [Patanase] 30.5 gm NS BID 01/17/18 [History] 3 Allergy/AdvReac Type Severity Reaction Status Date / Time Amoxicillin Allergy Hives Verified 01/16/18 18:39 adhesive AdvReac Rash Verified 01/16/18 18:39 All Systems: The remainder of the systems were reviewed and are negative - Constitutional Constitutional: as per HPI - Cardiovascular Cardiovascular: as per HPI - Respiratory Respiratory: cough, dyspnea, chest congestion - Gastrointestinal Gastrointestinal: no abdominal pain, no cramping, no diarrhea Physical Examination Vital Signs: Vital Signs, Last 4 Hours Temp Pulse Resp BP Pulse Ox 01/17/18 11:19 80 20 131/68 98 01/17/18 10:00 91 20 146/79 98 01/17/18 09:00 75 20 99/83 98 01/17/18 08:00 97.4 F L 92 20 91/67 92 General appearance: no acute distress Eyes: nonicteric ENT: oropharynx moist Neck: no lymphadenopathy Auscultation: bilateral: diminished breath sounds (Lower lobes), wheezes (Upper lobes) Cardiovascular: regular rate and rhythm Gastrointestinal: normoactive bowel sounds, soft, non-tender Integumentary: normal Extremities: no cyanosis, no clubbing, edema (3+ pitting to the knee), other ( Venous changes to both legs from the knee down) normal mental status mood appropriate Results - Laboratory Findings CBC and BMP: 01/17/18 04:40 01/17/18 04:40 ABG ABG pH 7.42 pH Units (7.32-7.45) 01/17/18 11:15 ABG pCO2 46 mmHg (35-45) H 01/17/18 11:15 ABG pO2 85 mmHg (85-104) 01/17/18 11:15 ABG O2 Saturation 96 % (95-98) 01/17/18 11:15 PT/INR, D-dimer PT 12.9 Seconds (9.4-12.1) H 01/16/18 21:01 Abnormal lab findings: Abnormal lab results RBC 3.86 M/mcL (4.19-5.50) L 01/17/18 04:40 Hgb 11.7 g/dL (12.9-16.9) L 01/17/18 04:40 Hct 37.0 % (37.5-50.1) L 01/17/18 04:40 RDW 15.9 % (11.5-14.5) H 01/17/18 04:40 MPV 9.2 fL (9.4-12.4) L 01/17/18 04:40 PT 12.9 Seconds (9.4-12.1) H 01/16/18 21:01 APTT 114.6 Seconds (26.0-36.0) H* 01/16/18 21:01 Heparin Anti-Xa, Unfract 0.76 IU/mL (0.30-0.70) H 01/16/18 21:01 ABG pCO2 46 mmHg (35-45) H 01/17/18 11:15 ABG HCO3 30 mEq/L (21-27) H 01/17/18 11:15 ABG Total CO2 32 mEq/L (20-26) H 01/17/18 11:15 ABG Base Excess 5 mEq/L (-2 to 3) H 01/17/18 11:15 Carbon Dioxide 30 mEq/L (23-29) H 01/17/18 04:40 Glucose 222 mg/dL (70-105) H 01/17/18 04:40 POC Glucose 221 mg/dL (70-99) H 01/17/18 05:35 Troponin I 0.40 ng/mL (< 0.04) H* 01/16/18 21:01 - Microbiology Findings Microbiology Findings: Microbiology, Last 48 Hours 01/16/18 21:01 Blood Culture - Preliminary Peripheral Venipuncture Culture is incubating and being continuously monitored for growth. Final report to follow. 01/16/18 21:01 Blood Culture - Preliminary Peripheral Venipuncture Culture is incubating and being continuously monitored for growth. Final report to follow. - Clinical Findings Intake & Output: Intake & Output 01/16/18 01/17/18 01/17/18 23:59 07:59 15:59 Intake Total 150 / 150 350 / 350 1250 / 1250 Output Total 2650 / 2650 Balance 150 / 150 -2300 / -2300 1250 / 1250 Weight 145.6 kg Consult Discharge Plan - Plan Referrals: Juan Abraham [Primary Care Provider] - <James James - Last Filed: 01/17/18 20:22> Date of Encounter: 01/17/18 All Systems: The remainder of the systems were reviewed and are negative Physical Examination Vital Signs: Vital Signs, Last 4 Hours Pulse Resp BP Pulse Ox 01/17/18 14:00 86 20 124/86 93 01/17/18 13:00 104 20 129/92 98 01/17/18 12:00 84 20 136/87 98 01/17/18 11:19 80 20 131/68 98 Results - Laboratory Findings CBC and BMP: 01/17/18 04:40 01/17/18 04:40 ABG ABG pH 7.42 pH Units (7.32-7.45) 01/17/18 11:15 ABG pCO2 46 mmHg (35-45) H 01/17/18 11:15 ABG pO2 85 mmHg (85-104) 01/17/18 11:15 ABG O2 Saturation 96 % (95-98) 01/17/18 11:15 PT/INR, D-dimer PT 12.9 Seconds (9.4-12.1) H 01/16/18 21:01 Abnormal lab findings: Abnormal lab results RBC 3.86 M/mcL (4.19-5.50) L 01/17/18 04:40 Hgb 11.7 g/dL (12.9-16.9) L 01/17/18 04:40 Hct 37.0 % (37.5-50.1) L 01/17/18 04:40 RDW 15.9 % (11.5-14.5) H 01/17/18 04:40 MPV 9.2 fL (9.4-12.4) L 01/17/18 04:40 PT 12.9 Seconds (9.4-12.1) H 01/16/18 21:01 APTT 114.6 Seconds (26.0-36.0) H* 01/16/18 21:01 Heparin Anti-Xa, Unfract 0.76 IU/mL (0.30-0.70) H 01/16/18 21:01 ABG pCO2 46 mmHg (35-45) H 01/17/18 11:15 ABG HCO3 30 mEq/L (21-27) H 01/17/18 11:15 ABG Total CO2 32 mEq/L (20-26) H 01/17/18 11:15 ABG Base Excess 5 mEq/L (-2 to 3) H 01/17/18 11:15 Carbon Dioxide 30 mEq/L (23-29) H 01/17/18 04:40 Glucose 222 mg/dL (70-105) H 01/17/18 04:40 POC Glucose 152 mg/dL (70-99) H 01/17/18 11:48 Troponin I 0.40 ng/mL (< 0.04) H* 01/16/18 21:01 - Microbiology Findings Microbiology Findings: Microbiology, Last 48 Hours 01/16/18 21:01 Blood Culture - Preliminary Peripheral Venipuncture Culture is incubating and being continuously monitored for growth. Final report to follow. 01/16/18 21:01 Blood Culture - Preliminary Peripheral Venipuncture Culture is incubating and being continuously monitored for growth. Final report to follow. - Clinical Findings Intake & Output: Intake & Output 01/16/18 01/17/18 01/17/18 23:59 07:59 15:59 Intake Total 150 / 150 350 / 350 1250 / 1250 Output Total 2650 / 2650 Balance 150 / 150 -2300 / -2300 1250 / 1250 Weight 145.6 kg - Attending Attestation I saw and evaluated this patient and my medical decision-making was reviewed with the Resident Physician. I agree with the documented findings, disposition and treatment plan as described except to the extent set forth below. We independently had [id number] contact with the patient Patient seen and examined at bedside Labs, radiology, chart personally reviewed. Management was reviewed during multidisciplinary critical care rounds. [employer]: Patient is oriented 3 following commands. No evidence of toxic metabolic encephalopathy Pulm: Has chronic pulmonary fibrosis has metastatic differentiated as consult carcinoma of the right upper lobe now with some progression with mediastinal lymphadenopathy patient was supposed to undergo EBUS under general anesthesia today could not make it to the appointment as he got admitted inpatient due to ST elevation myocardial infarction.. Chest x-ray consistent with a right upper lobe pneumonia will do conservative management with antibiotics, incentive spirometry, the bronchopulmonary hygiene. Will hold off EBUS TBNA for now as patient is high risk as patient had recently had STEMI. We will consult oncology regarding the need for future biopsy. Patient has acceptable oxygenation and ventilation Cards: STEMI looks like clot nor other coronary arteries causing this no stent was placed patient was started on antiplatelet therapy as antiplatelet therapy in this current acute situation so important side cannot be stopped for biopsy at this moment. FEN-GI: Diet as tolerated Renal: Labs and output reviewed ID: Patient is immunosuppressed will do broad-spectrum antibiotic for his right upper lobe pneumonia we will give some bronchopulmonary hygiene to bring up sputum. Heme/Onc: Has metastatic squamous carcinoma was scheduled do EBUS TBNA was canceled due to this acute issue of STEMI will consult oncology to readdress the need for biopsy . Endo Glucose Monitored Integ/MSK: Skin Care per routine ICU Nursing Protocol to prevent ulcers. Lines: All lines examined without evidence of infection : Dispo: To stay in ICU CODE:Full CODE
--- NOTE | 2018-01-17 11:47 | Cardiology Progress Note ---
Date of Encounter: 01/17/18 Time of Encounter: 11:35 Assessment and Plan (1) STEMI (ST elevation myocardial infarction) Current Visit: Yes Status: Acute S/P emergent LHC yesterday evening for STEMI. There is severe three vessel coronary artery disease. S/P CABG 3 of 3 patent bypass grafts. Significant Clot in the distal SVG to RPDA (likely culprit) Recommendations: Optimal medical therapy of patient's disease. Aggressive risk factor modification. Aggrastat IV x 24 hrs and continue brilinta for Vein Clot. Patient is pain free with CALVIN 3 flow in SVG to RPDA hence no further interventions planned only medical management. DAPT (ASA and Brilinta) uninterrupted. Pt verbalizes understanding. 18 beat run NSVT on tele. Resume BB at lower dose given hypotension. Replace K and Mag. Continue to monitor. Right femoral access site healing well. No bleeding, hematoma or ecchymosis noted. Qualifiers: Involved coronary artery: unspecified coronary artery Qualified Code(s): I21.3 - ST elevation (STEMI) myocardial infarction of unspecified site (2) NSVT (nonsustained ventricular tachycardia) Current Visit: Yes Status: Acute 18 beat run NSVT this AM. Replace K and Mag. TTE pending. Home BB was Toprol XL 100mg daily. Hypotensive overnight, now improved. Add back Toprol XL at 25mg daily and will uptitrate as BP allows. (3) Non-small cell cancer of right lung Current Visit: Yes Status: Chronic Management per pulmonoloy/oncology. Discussed with pulm. Plan to delay biopsy for 6 weeks given ACS. (4) Postobstructive pneumonia Current Visit: Yes Status: Acute Management per hospitalist/pulmonology. Discussion w patient/family: The assessment and plan as outlined above was discussed with the patient and/or family members who expressed understanding and agreement. All questions were answered. Thank you for involving us in the care of your patient. Please call with any questions. Subjective Principal diagnosis: STEMI Interval history: S/P emergent LHC yesterday evening for STEMI. There is severe three vessel coronary artery disease. S/P CABG 3 of 3 patent bypass grafts. Significant Clot in the distal SVG to RPDA (likely culprit) Recommendations: Optimal medical therapy of patient's disease. Aggressive risk factor modification. Aggrastat IV x 24 hrs and continue brilinta for Vein Clot Patient is pain free with CALVIN 3 flow in SVG to RPDA hence no further interventions planned only medical management. Pt denies chest pain. Endorses dyspnea worse from baseline. 18 beat run NSVT this AM. Objective Vital Signs, Last 4 Hours Temp Pulse Resp BP Pulse Ox 01/17/18 11:19 80 20 131/68 98 01/17/18 10:00 91 20 146/79 98 01/17/18 09:00 75 20 99/83 98 01/17/18 08:00 97.4 F L 92 20 91/67 92 Vital Signs Temp Pulse Resp BP Pulse Ox 01/17/18 11:19 80 20 131/68 98 01/17/18 10:00 91 20 146/79 98 01/17/18 09:00 75 20 99/83 98 01/17/18 08:00 97.4 F L 92 20 91/67 92 01/17/18 07:00 80 20 124/64 91 01/17/18 06:00 77 18 143/77 97 01/17/18 05:34 97.9 F 01/17/18 05:00 76 18 134/77 92 01/17/18 04:30 78 01/17/18 04:00 77 28 140/72 96 01/17/18 03:41 16 94 01/17/18 03:00 76 25 140/72 96 01/17/18 02:00 79 12 116/89 94 01/17/18 01:00 73 16 115/77 95 01/17/18 00:15 76 01/17/18 00:00 74 20 123/76 93 01/16/18 23:00 73 24 129/72 98 01/16/18 22:00 73 26 138/87 98 01/16/18 21:00 78 26 138/69 98 01/16/18 20:58 80 01/16/18 20:15 98.4 F 84 16 139/77 95 01/16/18 18:58 93 151/87 97 01/16/18 18:50 99 24 136/75 93 01/16/18 18:48 97 22 108/60 94 01/16/18 18:40 98.2 F 100 22 108/60 92 Intake and Output 01/16/18 01/17/18 01/17/18 23:59 07:59 15:59 Intake Total 150 / 150 350 / 350 1250 / 1250 Output Total 2650 / 2650 Balance 150 / 150 -2300 / -2300 1250 / 1250 Intake: IV Fluids 150 / 150 350 / 350 1250 / 1250 0.9 % Sodium Chloride 1,000 ML 1000 / 1000 @ 75 mls/hr IVC .[id number] [facility] Rx #:[id number] Aggrastat 12.5 MG/250 ML 12.5 250 / 250 250 / 250 mg In 250 ml @ 0.15 MCG/KG/MIN 26.208 mls/hr IVC .[id number] [facility] Rx#:[id number] Levaquin Premix 750mg/150 mL 150 / 150 750 mg In 150 ml @ 100 mls/hr IVPB Q48H [facility] Rx#:[id number] Flagyl Premix 500 MG/100 ML 500 100 / 100 mg In 100 ml @ 100 mls/hr IVPB Q8HR [facility] Rx#:[id number] Output: Catheter 2650 / 2650 Other: Weight 145.6 kg Blood Glucose* 207 General: Conversant, No Apparent Distress HEENT: Atraumatic, Normocephaly, Mucus Membranes Moist Neck: No JVD, Normal carotid pulses Cardiac: Reg Rate and Rhythm, Normal S1 and S2, No Murmur Lungs: Other (wheezes noted) Neuro: Alert and responsive, No focal deficits noted Abdomen: Soft, Non-Tender Skin: No rashes noted on visualized skin Musculoskeletal: No Chest Wall Tenderness Extremities: Other (2+ BLE edema.) Results 01/17/18 04:40 01/17/18 04:40 Lab Results 01/16/18 01/16/18 01/16/18 21:01 21:01 21:01 WBC 11.2 H Hgb 12.2 L Hct 38.6 Plt Count 292 INR 1.1 APTT 114.6 H* Sodium 134 L Potassium 3.8 Chloride 99 Carbon Dioxide 26 BUN 18 Creatinine 1.04 Glucose 194 H Calcium 10.3 Magnesium 1.6 Troponin I 0.40 H* 01/17/18 01/17/18 04:40 04:40 WBC 8.8 Hgb 11.7 L Hct 37.0 L Plt Count 270 INR APTT Sodium 138 Potassium 3.5 Chloride 100 Carbon Dioxide 30 H BUN 17 Creatinine 1.02 Glucose 222 H Calcium 10.0 Magnesium Troponin I Short CBC 01/17/18 01/16/18 Range/Units 04:40 21:01 WBC 8.8 11.2 H (4.3-11.1) K/mcL Hgb 11.7 L 12.2 L (12.9-16.9) g/dL Hct 37.0 L 38.6 (37.5-50.1) % Plt Count 270 292 (140-400) K/mcL Neutrophils # 6.0 7.6 (1.6-8.9) K/mcL BMP 01/17/18 01/16/18 Range/Units 04:40 21:01 Sodium 138 134 L (136-145) mEq/L Potassium 3.5 3.8 (3.5-5.1) mEq/L Chloride 100 99 (98-107) mEq/L Carbon Dioxide 30 H 26 (23-29) mEq/L BUN 17 18 (8-23) mg/dL Creatinine 1.02 1.04 (0.70-1.30) mg/dL Glucose 222 H 194 H (70-105) mg/dL Calcium 10.0 10.3 (8.6-10.3) mg/dL Cardiac Enzymes 01/16/18 Range/Units 21:01 Troponin I 0.40 H* (< 0.04) ng/mL Active Medications Albuterol Sulfate (Proventil Neb) 2.5 mg IH Q2H PRN; Protocol PRN Reason: Shortness Of Breath/Wheezing Stop: 07/18/18 22:03 Albuterol/Ipratropium (Duoneb) 3 ml IH [id number] [facility] Stop: 07/19/18 04:01 Last Admin: 01/17/18 09:47 Dose: 3 ml Aspirin (Aspirin) 81 mg PO DAILY [facility] Stop: 07/19/18 09:01 Last Admin: 01/17/18 08:50 Dose: 81 mg Dextrose/Water (Dextrose 50% (Syg)) 25 ml IVP AD PRN PRN Reason: Hypoglycemia Stop: 07/18/18 20:38 Glucagon (Glucagen) 1 mg IM ONCE PRN PRN Reason: Hypoglycemia Stop: 07/18/18 20:38 Glucose (Gluctose) 15 gm PO ONCE PRN PRN Reason: Hypoglycemia Stop: 07/18/18 20:38 Glucose (Gluctose) 30 gm PO ONCE PRN PRN Reason: Hypoglycemia Stop: 07/18/18 20:38 Heparin Sodium (Porcine) (Heparin) 4,000 unit IVP Q6HR PRN PRN Reason: SEE COMMENTS Stop: 07/18/18 18:44 Heparin Sodium (Porcine) (Heparin) 2,000 unit IVP Q6H PRN PRN Reason: SEE COMMENTS Stop: 07/18/18 18:44 Heparin Sodium/Dextrose (Heparin 25,000 Unit/500 Ml D5w) 25,000 unit in 500 mls @ 19.989 mls/hr IVC .Q24H [facility]; 6.47 UNIT/KG/HR PRN Reason: Protocol Stop: 07/18/18 18:46 Last Admin: 01/16/18 21:44 Dose: Not Given Nitroglycerin (Nitroglycerin Premix 25 Mg/250 Ml) 25 mg in 250 mls @ 3 mls/hr IVC .Q24H [facility] PRN Reason: 5 MCG/MIN Stop: 07/18/18 18:46 Last Admin: 01/16/18 21:44 Dose: Not Given Sodium Chloride (0.9 % Sodium Chloride) 1,000 mls @ 75 mls/hr IVC .[id number] [facility] Stop: 07/18/18 20:46 Last Admin: 01/17/18 08:55 Dose: 75 mls/hr Dextrose (Dextrose 5%) 1,000 mls @ 100 mls/hr IVC .Q10H PRN PRN Reason: HYPOGLYCEMIA Stop: 07/18/18 20:38 Metronidazole (Flagyl Premix 500 Mg/100 Ml) 500 mg in 100 mls @ 100 mls/hr IVPB Q8HR [facility] Stop: 07/19/18 00:01 Last Admin: 01/17/18 08:50 Dose: 100 mls/hr Tirofiban/Sodium Chloride (Aggrastat 12.5 Mg/250 Ml) 12.5 mg in 250 mls @ 26.208 mls/hr IVC .Q9H33M [facility] PRN Reason: 0.15 MCG/KG/MIN Stop: 01/17/18 20:00 Last Admin: 01/17/18 11:16 Dose: 0.15 mcg/kg/min, 26.208 mls/hr Levofloxacin/Dextrose (Levaquin Premix 750mg/150 Ml) 750 mg in 150 mls @ 100 mls/hr IVPB Q24H [facility] PRN Reason: Protocol Stop: 07/18/18 21:01 Insulin Human Lispro (Humalog) 0 units SQ Q6HR [facility] PRN Reason: Protocol Stop: 07/19/18 00:01 Last Admin: 01/17/18 05:36 Dose: 6 units Ticagrelor (Brilinta) 90 mg PO BID [facility] Stop: 07/19/18 09:01 Last Admin: 01/17/18 08:50 Dose: 90 mg - Imaging and Cardiology Echo: pending Cardiac cath: report reviewed - EKG Interpretation EKG results cardiology: other (12 hr tele AVG HR 79, SR, 18 beat run NSVT) Consult Discharge Plan - Plan Referrals: Juan Abraham [Primary Care Provider] -
[2018-01-17] MEDS: Cefepime HCl 2,000 MG in Water for inj. (sterile) 20 ML 20 ML IVP SCH (12:35)
[2018-01-17] MEDS: Metoprolol XL (24 HR) Succ 25 MG TAB.ER.24H PO SCH (12:36)
[2018-01-17] MEDS ORDERED: Albuterol 2.5 MG/3 ML NEBULIZER IH PRN (15:45)
[2018-01-17] MEDS: Albuterol 2.5 MG/3 ML NEBULIZER IH SCH (17:12)
[2018-01-17] MEDS: Nitroglycerin 25 MG/250 ML INFUS..BTL IVC SCH (18:25)
[2018-01-17] MEDS ORDERED: Dextrose Gel 15 GM/37.5 ML TUBE PO PRN ×2 (20:19)
[2018-01-17] MEDS ORDERED: *HR* Dextrose 50 % in Water (Syg) 50 ML SYRINGE IVP PRN (20:19)
[2018-01-17] MEDS ORDERED: D5% in Water 1,000 ML IVC PRN (20:19)
[2018-01-17 20:46] LABS: Hematocrit 35.8 % (37.5-50.1); Hemoglobin 11.4 g/dL (12.9-16.9)
[2018-01-17 20:57] LABS: INR 1.2; Prothrombin Time 13.2 Seconds (9.4-12.1)
[2018-01-17 21:00] LABS: Activated Partial Thrombo Time 28.9 Seconds (26.0-36.0)
[2018-01-17] MEDS ORDERED: Insulin LISPRO 300 UNITS/3 ML VIAL SQ SCH (21:00)
[2018-01-17] MEDS ORDERED: Levofloxacin 750 MG/150 ML 750 MG/150 ML BAG IVPB SCH (21:00)
[2018-01-17] MEDS ORDERED: Insulin DETEMIR 100 UNIT/ML X5UNITS SQ SCH (21:00)
--- NOTE | 2018-01-17 22:42 | Internal Med Progress Note ---
Hospitalist Progress Note - Encounter Date of Encounter: 01/17/18 Time of Encounter: 19:00 - Subjective Interval History: SUBJECTIVE: The patient continues to be short of breath. It is associated with mild coughing and wheezing. Denies chest pain. Denies abdominal pain, nausea and vomiting. He makes fair amounts of urine. OBJECTIVE: Skin: Free of rash and discoloration. ENMT: Oral/pharyngeal mucosa is normal in appearance. Eyes: Sclera is white. There is no discharge from eyes. Respiratory: Normal breath sounds; no crackles or wheezes. CV: Heart is regular; no gallop or murmur. GI: Abdomen is soft and not tender. There is no palpable mass or visceromegaly. Neuro: There is no focal deficits. ASSESSMENT AND PLAN: The patient was admitted by cardiology for treatment of STEMI; NSVT was noticed. She underwent cardiac catheterization; and nonobstructive thrombus was found in one of her coronary grafts. He is on Brilinta and aspirin. She is not getting beta-blockers due to her poor respiratory status. Postobstructive pneumonia/COPD exacerbation. Pulmonary disease is consulted. We will continue Levaquin and metronidazole. We will continue nebulizer treatments with DuoNeb. The patient has underlying non-small cell cancer of right lung. He gets outpatient treatments, as scheduled by oncology. Pulmonary disease is consulted. Type 2 diabetes mellitus. He is on diabetic diet and when necessary insulin Humalog. - Exam Vitals: Temp Pulse Resp BP Pulse Ox 99.8 F H 75 22 101/68 90 01/17/18 21:09 01/17/18 22:00 01/17/18 22:00 01/17/18 22:00 01/17/18 22:00 Exam: xxx - Assessment and Plan (1) STEMI (ST elevation myocardial infarction) Current Visit: Yes Status: Acute (2) NSVT (nonsustained ventricular tachycardia) Current Visit: Yes Status: Acute (3) Postobstructive pneumonia Current Visit: Yes Status: Acute (4) Non-small cell cancer of right lung Current Visit: Yes Status: Chronic (5) IDDM (insulin dependent diabetes mellitus) Current Visit: Yes Status: Chronic - Time Spent with Patient Total time spent is greater than 50% in coordination of care (as documented) at patient's floor/unit and/or counseling patient: 25 - 35 minutes Internal Medicine: Result - Labs CBC & Chem 7: 09/12/18 02:58 01/18/18 02:58 Labs: Short CBC 01/17/18 01/17/18 Range/Units 04:40 20:25 WBC 8.8 (4.3-11.1) K/mcL Hgb 11.7 L 11.4 L (12.9-16.9) g/dL Hct 37.0 L 35.8 L (37.5-50.1) % Plt Count 270 (140-400) K/mcL Neutrophils # 6.0 (1.6-8.9) K/mcL BMP 01/17/18 04:40 Sodium 138 Potassium 3.5 Chloride 100 Carbon Dioxide 30 H BUN 17 Creatinine 1.02 Glucose 222 H Calcium 10.0 - ABG Interpretation ABG results: ABG ABG pH 7.42 pH Units (7.32-7.45) 01/17/18 11:15 ABG pCO2 46 mmHg (35-45) H 01/17/18 11:15 ABG pO2 85 mmHg (85-104) 01/17/18 11:15 ABG O2 Saturation 96 % (95-98) 01/17/18 11:15 PT/INR, D-dimer PT 13.2 Seconds (9.4-12.1) H 01/17/18 20:25 - Impressions Impressions Echocardiogram 01/17/18 20:37 Impressions: Technically sub-optimal due to poor echocardiographic windows. Definity echo contrast was used. Grossly, LV systolic function appears normal. Multiple LV wall segments were not well visualized. RV not well visualized. Consult Discharge Plan - Plan Referrals: Juan Abraham [Primary Care Provider] - (1) STEMI (ST elevation myocardial infarction) Qualifiers: Involved coronary artery: unspecified coronary artery Qualified Code(s): I21.3 - ST elevation (STEMI) myocardial infarction of unspecified site
[2018-01-18] MEDS ORDERED: *HR* OxyCODONE/APAP 10/325 TABLET PO ONE (00:47)
[2018-01-18] MEDS: Cefepime HCl 2,000 MG in Water for inj. (sterile) 20 ML 20 ML IVP SCH ×2 (00:59→14:25)
[2018-01-18 03:11] LABS: Basophils # 0.1 K/mcL (0.0-0.2); Basophils % 0.7 %; Eosinophils # 0.4 K/mcL (0.0-0.6); Eosinophils % 3.5 %; Hematocrit 37.4 % (37.5-50.1); Hemoglobin 12.1 g/dL (12.9-16.9); Immature Granulocytes % 0.8 % (0-4); Lymphocytes # 0.9 K/mcL (0.6-4.6); Lymphocytes % 8.8 %; Mean Corpuscular HGB Conc 32.4 g/dL (31.6-35.5); Mean Corpuscular Hemoglobin 31.2 pg (28.0-33.3); Mean Corpuscular Volume 96.4 fL (83.0-100.0); Mean Platelet Volume 9.1 fL (9.4-12.4); Monocytes # 1.2 K/mcL (0.0-1.3); Monocytes % 11.2 %; Neutrophils # 7.7 K/mcL (1.6-8.9); Platelet Count 277 K/mcL (140-400); Red Blood Count 3.88 M/mcL (4.19-5.50); Red Cell Distribution Width 16.1 % (11.5-14.5)
[2018-01-18] MEDS: Ipratropium/Albuterol Neb 3 ML IH SCH ×5 (03:32→22:17)
[2018-01-18 03:38] LABS: Alanine Aminotransferase 13 Units/L (7-52); Albumin 2.9 g/dL (3.5-5.7); Alkaline Phosphatase 79 Units/L (34-104); Aspartate Amino Transferase 20 Units/L (13-39); BUN/Creatinine Ratio 14 (6-26); Bilirubin,Total 0.6 mg/dL (0.3-1.0); Blood Urea Nitrogen 12 mg/dL (8-23); Calcium 9.8 mg/dL (8.6-10.3); Carbon Dioxide 27 mEq/L (23-29); Chloride 106 mEq/L (98-107); Glucose 172 mg/dL (70-105); Osmolality,Calculated 292 (280-300); Potassium 3.6 mEq/L (3.5-5.1); Sodium 139 mEq/L (136-145); Total Protein 5.9 g/dL (6.4-8.9); eGFR For Non-African Americans > 60 (> 60)
[2018-01-18] MEDS ORDERED: *HR* OxyCODONE/APAP 5/325 TABLET PO PRN ×2 (07:40→15:58)
[2018-01-18] MEDS: MetroNIDAZOLE 500 MG/100 ML 500 MG/100 ML BAG IVPB SCH ×2 (08:04→17:13)
[2018-01-18] MEDS: *HR* Ticagrelor 90 MG TABLET PO SCH ×2 (08:05→21:11)
[2018-01-18] MEDS: Metoprolol XL (24 HR) Succ 25 MG TAB.ER.24H PO SCH (08:05)
[2018-01-18] MEDS: Aspirin 81 MG TAB.CHEW PO SCH (08:05)
[2018-01-18] MEDS: Insulin LISPRO 300 UNITS/3 ML VIAL SQ SCH ×5 (08:05→21:10)
[2018-01-18] MEDS ORDERED: Metoprolol XL (24 HR) Succ 25 MG TAB.ER.24H PO ONE (08:43)
--- NOTE | 2018-01-18 09:03 | Pulmonology Progress Note ---
<Janell Cm E - Last Filed: 01/18/18 11:15> Date of Encounter: 01/18/18 Time of Encounter: 09:00 Assessment and Plan (1) Postobstructive pneumonia Current Visit: Yes Status: Acute Patient is on cefepime, vancomycin, Flagyl CT chest without contrast for comparison to December 07 Continue DuoNeb treatment Continue use of flutter valve Incentive spirometry (2) STEMI (ST elevation myocardial infarction) Current Visit: Yes Status: Acute Care for this as per cardiology Patient underwent catheterization on January 16 which showed severe three- vessel coronary artery disease with significant clot in the distal SVG to RPDA ASA and Bralinta Aggrastat was stopped last night due to hematuria Qualifiers: Involved coronary artery: unspecified coronary artery Qualified Code(s): I21.3 - ST elevation (STEMI) myocardial infarction of unspecified site (3) IDDM (insulin dependent diabetes mellitus) Current Visit: Yes Status: Chronic Started on 20 units of long-acting insulin yesterday as well as corrective low- dose short-acting insulin regimen Continue monitor blood sugars (4) Non-small cell cancer of right lung Current Visit: Yes Status: Chronic Patient typically follows with Dr. Ludwig Bronchoscopy has been put off at this time, oncology has been notified of this Subjective Principal diagnosis: STEMI Interval history: Mr. Flores is a 72-year-old male who is admitted to intensive care by cardiology after emergency left heart catheter for STEMI. Dr. Vegas had received a phone call from patient's primary care provider informing him the patient had multifocal pneumonia on recent imaging is today, patient was due to have an outpatient microscopy tomorrow regarding his lung cancer He has been under the care of [facility] for lung cancer of the past couple years, he is due to start a new treatment protocol per Dr. Ludwig. Did have bronchoscopy with biopsy when he developed a STEMI prompting emergency hospitalization care, but this has been postponed. Patient had been coughing up purulent sputum and had been short of breath prior to admission. He has had no fevers but he has had some chills and night sweats. He denies any hemoptysis vomiting or diarrhea. His appetite has been diminished. Denies any chest pain. Outpatient chest x-ray yesterday revealed right upper lobe infiltrate concerning for possible postobstructive process, he also had a small right-sided effusion. On exam today patient was resting comfortably, slightly short of breath but he said this is better than before. He had gross hematuria overnight, Aggrastat was stopped, Bralinta and aspirin were continued. Today his urine is tea colored, and the Camacho catheter will be flushed. Objective PUL Vital signs: Last Vital Signs Temp 97.7 F 01/18/18 08:00 Pulse 85 01/18/18 07:00 Resp 21 01/18/18 07:00 BP 133/79 01/18/18 07:00 Pulse Ox 97 01/18/18 07:00 General appearance: no acute distress Eyes: nonicteric ENT: oropharynx moist Neck: no lymphadenopathy Auscultation: bilateral: diminished breath sounds (Bilateral lower lobes), wheezes (Slight expiratory wheeze) Cardiovascular: regular rate and rhythm Gastrointestinal: normoactive bowel sounds, soft, non-tender Integumentary: normal Extremities: no cyanosis, pink and warm, edema (2+ to the calf), other ( Vascular changes bilateral lower legs) normal mental status Results - Laboratory Findings CBC and BMP: 01/18/18 02:58 01/18/18 02:58 ABG ABG pH 7.42 pH Units (7.32-7.45) 01/17/18 11:15 ABG pCO2 46 mmHg (35-45) H 01/17/18 11:15 ABG pO2 85 mmHg (85-104) 01/17/18 11:15 ABG O2 Saturation 96 % (95-98) 01/17/18 11:15 PT/INR, D-dimer PT 13.2 Seconds (9.4-12.1) H 01/17/18 20:25 Abnormal lab findings: Abnormal lab results RBC 3.88 M/mcL (4.19-5.50) L 01/18/18 02:58 Hgb 12.1 g/dL (12.9-16.9) L 01/18/18 02:58 Hct 37.4 % (37.5-50.1) L 01/18/18 02:58 RDW 16.1 % (11.5-14.5) H 01/18/18 02:58 MPV 9.1 fL (9.4-12.4) L 01/18/18 02:58 PT 13.2 Seconds (9.4-12.1) H 01/17/18 20:25 Heparin Anti-Xa, Unfract 0.76 IU/mL (0.30-0.70) H 01/16/18 21:01 ABG pCO2 46 mmHg (35-45) H 01/17/18 11:15 ABG HCO3 30 mEq/L (21-27) H 01/17/18 11:15 ABG Total CO2 32 mEq/L (20-26) H 01/17/18 11:15 ABG Base Excess 5 mEq/L (-2 to 3) H 01/17/18 11:15 Glucose 172 mg/dL (70-105) H 01/18/18 02:58 POC Glucose 182 mg/dL (70-99) H 01/18/18 08:01 Troponin I 0.40 ng/mL (< 0.04) H* 01/16/18 21:01 Serum Total Protein 5.9 g/dL (6.4-8.9) L 01/18/18 02:58 Albumin 2.9 g/dL (3.5-5.7) L 01/18/18 02:58 Albumin/Globulin Ratio 1.0 (1.1-2.2) L 01/18/18 02:58 - Microbiology Findings Microbiology Findings: Microbiology, Last 48 Hours 01/17/18 15:35 Sputum Culture - Preliminary Sputum 01/16/18 21:01 Blood Culture - Preliminary Peripheral Venipuncture Culture is incubating and being continuously monitored for growth. Final report to follow. 01/16/18 21:01 Blood Culture - Preliminary Peripheral Venipuncture Culture is incubating and being continuously monitored for growth. Final report to follow. - Clinical Findings Intake & Output: Intake & Output 01/17/18 01/18/18 01/18/18 23:59 07:59 15:59 Intake Total 1100 / 1100 820 / 820 Output Total 550 / 550 325 / 325 150 / 150 Balance 550 / 550 495 / 495 -150 / -150 Weight 147.4 kg Consult Discharge Plan - Plan Referrals: Naveed Chicas, [facility] [Advanced Practice Nurse] - (Office will call patient at home with follow up appointment) Juan Abraham [Primary Care Provider] - (left message for office to call me back) <James James - Last Filed: 01/18/18 15:30> Date of Encounter: 01/18/18 Objective PUL Vital signs: Last Vital Signs Temp 97.6 F 01/18/18 12:00 Pulse 84 01/18/18 12:00 Resp 18 01/18/18 12:00 BP 152/94 01/18/18 12:00 Pulse Ox 95 01/18/18 12:00 Results - Laboratory Findings CBC and BMP: 01/18/18 02:58 01/18/18 02:58 ABG ABG pH 7.42 pH Units (7.32-7.45) 01/17/18 11:15 ABG pCO2 46 mmHg (35-45) H 01/17/18 11:15 ABG pO2 85 mmHg (85-104) 01/17/18 11:15 ABG O2 Saturation 96 % (95-98) 01/17/18 11:15 PT/INR, D-dimer PT 13.2 Seconds (9.4-12.1) H 01/17/18 20:25 Abnormal lab findings: Abnormal lab results RBC 3.88 M/mcL (4.19-5.50) L 01/18/18 02:58 Hgb 12.1 g/dL (12.9-16.9) L 01/18/18 02:58 Hct 37.4 % (37.5-50.1) L 01/18/18 02:58 RDW 16.1 % (11.5-14.5) H 01/18/18 02:58 MPV 9.1 fL (9.4-12.4) L 01/18/18 02:58 PT 13.2 Seconds (9.4-12.1) H 01/17/18 20:25 Heparin Anti-Xa, Unfract 0.76 IU/mL (0.30-0.70) H 01/16/18 21:01 ABG pCO2 46 mmHg (35-45) H 01/17/18 11:15 ABG HCO3 30 mEq/L (21-27) H 01/17/18 11:15 ABG Total CO2 32 mEq/L (20-26) H 01/17/18 11:15 ABG Base Excess 5 mEq/L (-2 to 3) H 01/17/18 11:15 Glucose 172 mg/dL (70-105) H 01/18/18 02:58 POC Glucose 224 mg/dL (70-99) H 01/18/18 11:53 Troponin I 0.40 ng/mL (< 0.04) H* 01/16/18 21:01 Serum Total Protein 5.9 g/dL (6.4-8.9) L 01/18/18 02:58 Albumin 2.9 g/dL (3.5-5.7) L 01/18/18 02:58 Albumin/Globulin Ratio 1.0 (1.1-2.2) L 01/18/18 02:58 - Microbiology Findings Microbiology Findings: Microbiology, Last 48 Hours 01/17/18 15:35 Sputum Culture - Preliminary Sputum 01/16/18 21:01 Blood Culture - Preliminary Peripheral Venipuncture Culture is incubating and being continuously monitored for growth. Final report to follow. 01/16/18 21:01 Blood Culture - Preliminary Peripheral Venipuncture Culture is incubating and being continuously monitored for growth. Final report to follow. - Clinical Findings Intake & Output: Intake & Output 01/17/18 01/18/18 01/18/18 23:59 07:59 15:59 Intake Total 1100 / 1100 820 / 820 240 / 240 Output Total 550 / 550 325 / 325 350 / 350 Balance 550 / 550 495 / 495 -110 / -110 Weight 147.4 kg - Attending Attestation - Attending Attestation I saw and evaluated this patient and my medical decision-making was reviewed with the Resident Physician. I agree with the documented findings, disposition and treatment plan as described except to the extent set forth below. We independently had [id number] contact with the patient Patient seen and examined at bedside Labs, radiology, chart personally reviewed. Management was reviewed during multidisciplinary critical care rounds. 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 No evidence of toxic metabolic encephalopathy Pulm: Has chronic pulmonary fibrosis has metastatic differentiated as consult carcinoma of the right upper lobe now with some progression with mediastinal lymphadenopathy patient was supposed to undergo EBUS under general anesthesia today could not make it to the appointment as he got admitted inpatient due to ST elevation myocardial infarction.. Chest x-ray consistent with a right upper lobe pneumonia will do conservative management with antibiotics, incentive spirometry, the bronchopulmonary hygiene. Will hold off EBUS TBNA for now as patient is high risk as patient had recently had STEMI. We will consult oncology regarding the need for future biopsy. Patient has acceptable oxygenation and ventilation 01/18 Patient continuing to do better with IV antibiotics , Bronchodilators and will add steroids which help in his V/Q mismatch. Cards: STEMI looks like clot nor other coronary arteries causing this no stent was placed patient was started on antiplatelet therapy as antiplatelet therapy in this current acute situation so important side cannot be stopped for biopsy at this moment. 01/18 :To continue dual antiplatelet therapy discussed with oncology we are no going to any bronchoscopy or biopsy . Patient is in agreement no procedure in the inpatient settings. FEN-GI: Diet as tolerated Renal: Labs and output reviewed ID: Patient is immunosuppressed will do broad-spectrum antibiotic for his right upper lobe pneumonia we will give some bronchopulmonary hygiene to bring up sputum. 01/18 : To continue broad spectrum antibiotics Heme/Onc: Has metastatic squamous carcinoma was scheduled do EBUS TBNA was canceled due to this acute issue of STEMI will consult oncology to readdress the need for biopsy . 01/18 : Spoke with Oncology who agreed with my assesment of no bronchoscopic intervention now . Oncologist follow up with him as an outpatient . Endo Glucose Monitored Integ/MSK: Skin Care per routine ICU Nursing Protocol to prevent ulcers. Lines: All lines examined without evidence of infection : Dispo: To Transfer to report was called to the hospitalist. CODE:Full CODE
[2018-01-18 09:04] LABS: Magnesium 1.8 mg/dL (1.6-2.6)
--- NOTE | 2018-01-18 11:43 | Cardiology Progress Note ---
Date of Encounter: 01/18/18 Time of Encounter: 11:40 Assessment and Plan (1) STEMI (ST elevation myocardial infarction) Current Visit: Yes Status: Acute S/P emergent [facility] evening of 01/16 for STEMI. There is severe three vessel coronary artery disease. S/P CABG 3 of 3 patent bypass grafts. Significant Clot in the distal SVG to RPDA (likely culprit). Recommendations: Optimal medical therapy of patient's disease. Aggressive risk factor modification. Aggrastat IV x 24 hrs and continue brilinta for Vein Clot. Patient is pain free with CALVIN 3 flow in SVG to RPDA hence no further interventions planned only medical management. Pt developed gross hematuria overnight, Aggrastat stopped. Improvement in urine- -currently tea colored in carbajal. DAPT (ASA and Brilinta) uninterrupted. Pt verbalizes understanding. Resumed BB yesterday at lower dose given hypotension. No statin due intolerance/ myalgias. Continue to monitor. Right femoral access site healing well. No bleeding, hematoma or ecchymosis noted. TTE Technically sub-optimal due to poor echocardiographic windows. Definity echo contrast was used. Grossly, LV systolic function appears normal. Multiple LV wall segments were not well visualized. RV not well visualized. Step down out of ICU--discussed with pulm. Qualifiers: Involved coronary artery: unspecified coronary artery Qualified Code(s): I21.3 - ST elevation (STEMI) myocardial infarction of unspecified site (2) PAF (paroxysmal atrial fibrillation) Current Visit: Yes Status: Acute Episode of PAF on telemetry this AM. Currently SR. Pt has hx of A-Flutter s/p ablation in 2014. Continue BB. [id number] (Age, HTN, DM, CAD). High CVA risk. Currently on ASA and Brilinta s /p STEMI. Was on aggrastat gtt and developed hematuria. H&H stable. Urine color now improved. Pt reports being on Eliquis in the past without issue. 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 Richardson and discuss R/B of triple therapy. (3) NSVT (nonsustained ventricular tachycardia) Current Visit: Yes Status: Acute 18 beat run NSVT yesterday AM. Replaced K and Mag. TTE pending. Home BB was Toprol XL 100mg daily. Had bee hypotensive, resumed Toprol XL at 25mg daily yesterday, uptitrated to 50mg daily today. (4) Non-small cell cancer of right lung Current Visit: Yes Status: Chronic Management per pulmonoloy/oncology. Discussed with pulm. Plan to delay biopsy for 6 weeks given ACS. (5) Postobstructive pneumonia Current Visit: Yes Status: Acute Management per hospitalist/pulmonology. Discussion w patient/family: The assessment and plan as outlined above was discussed with the patient and/or family members who expressed understanding and agreement. All questions were answered. Thank you for involving us in the care of your patient. Please call with any questions. Subjective Principal diagnosis: STEMI Interval history: Pt developed gross hematuria overnight. Aggrastat has been stopped with improvemet in urine color. Pt denies acute cardiac complaints. Denies chest pain or worsening dyspnea from his baseline. Telemetry reviewed. Appears to have had an episode of A-Fib this AM. Pt has hx of A-Flutter s/p ablation in 2014. Objective Vital Signs, Last 4 Hours Temp Pulse Resp BP Pulse Ox 01/18/18 10:00 90 16 101/71 95 01/18/18 09:37 16 99 01/18/18 09:00 86 18 117/72 99 01/18/18 08:00 97.7 F 86 16 158/92 100 Vital Signs Temp Pulse Resp BP Pulse Ox 01/18/18 10:00 90 16 101/71 95 01/18/18 09:37 16 99 01/18/18 09:00 86 18 117/72 99 01/18/18 08:00 97.7 F 85 16 158/92 100 01/18/18 07:00 85 21 133/79 97 01/18/18 06:13 77 20 131/101 100 01/18/18 05:24 81 22 111/63 99 01/18/18 04:38 97.6 F 01/18/18 04:00 92 22 111/69 98 01/18/18 03:32 20 100 01/18/18 03:00 94 22 98 01/18/18 02:00 88 24 110/62 97 01/18/18 01:14 98 26 111/92 96 01/18/18 00:11 99.0 F 01/18/18 00:00 96 28 123/62 98 01/17/18 23:55 101 01/17/18 23:40 100 26 119/82 96 01/17/18 22:00 102 22 134/61 97 01/17/18 21:35 16 121/78 99 01/17/18 21:15 24 99 01/17/18 21:09 99.8 F H 01/17/18 21:00 99 21 121/78 99 01/17/18 20:00 101 24 121/86 97 01/17/18 19:56 85 01/17/18 19:20 101 24 122/61 97 01/17/18 18:00 93 18 124/76 97 01/17/18 17:08 20 97 01/17/18 17:00 98.8 F 94 20 119/81 95 01/17/18 16:00 98.8 F 92 20 124/104 95 01/17/18 15:00 85 20 142/82 85 01/17/18 14:00 86 20 124/86 93 01/17/18 13:00 104 20 129/92 98 01/17/18 12:00 97.5 F L 84 20 136/87 98 Intake and Output 01/17/18 01/18/18 01/18/18 23:59 07:59 15:59 Intake Total 1100 / 1100 820 / 820 220 / 220 Output Total 550 / 550 325 / 325 150 / 150 Balance 550 / 550 495 / 495 70 / 70 Intake: IV Fluids 1100 / 1100 820 / 820 100 / 100 0.9 % Sodium Chloride 1,000 ML 1000 / 1000 700 / 700 @ 75 mls/hr IVC .[id number] [facility] Rx #:[id number] Maxipime 2,000 MG In Water for 20 / 20 inj. (sterile) 20 ML @ 300 mls/ hr IVP Q12H [facility] Rx#:[id number] Flagyl Premix 500 MG/100 ML 500 100 / 100 100 / 100 100 / 100 mg In 100 ml @ 100 mls/hr IVPB Q8HR [facility] Rx#:[id number] Oral 120 / 120 Output: Catheter 550 / 550 325 / 325 150 / 150 Other: Meal Breakfast Percent of Meal Consumed 50% Weight 147.4 kg Blood Glucose* 263 182 Patient Weight 01/18/18 23:59 Weight 147.4 kg General: Conversant, No Apparent Distress HEENT: Atraumatic, Normocephaly, Mucus Membranes Moist Neck: Normal carotid pulses Cardiac: Reg Rate and Rhythm, Normal S1 and S2, No Murmur Lungs: Other (diminished) Neuro: Alert and responsive, No focal deficits noted Abdomen: Soft, Non-Tender Skin: No rashes noted on visualized skin Musculoskeletal: No Chest Wall Tenderness Extremities: Other (moderate LE edema) Results 01/18/18 02:58 01/18/18 02:58 Lab Results 01/17/18 01/17/18 01/18/18 20:25 20:25 02:58 WBC 10.3 Hgb 11.4 L 12.1 L Hct 35.8 L 37.4 L Plt Count 277 INR 1.2 APTT 28.9 D Sodium Potassium Chloride Carbon Dioxide BUN Creatinine Glucose Calcium Magnesium Total Bilirubin AST ALT Alkaline Phosphatase 01/18/18 02:58 WBC Hgb Hct Plt Count INR APTT Sodium 139 Potassium 3.6 Chloride 106 Carbon Dioxide 27 BUN 12 Creatinine 0.86 Glucose 172 H Calcium 9.8 Magnesium 1.8 Total Bilirubin 0.6 AST 20 ALT 13 Alkaline Phosphatase 79 Short CBC 01/18/18 01/17/18 Range/Units 02:58 20:25 WBC 10.3 (4.3-11.1) K/mcL Hgb 12.1 L 11.4 L (12.9-16.9) g/dL Hct 37.4 L 35.8 L (37.5-50.1) % Plt Count 277 (140-400) K/mcL Neutrophils # 7.7 (1.6-8.9) K/mcL BMP 01/18/18 Range/Units 02:58 Sodium 139 (136-145) mEq/L Potassium 3.6 (3.5-5.1) mEq/L Chloride 106 (98-107) mEq/L Carbon Dioxide 27 (23-29) mEq/L BUN 12 (8-23) mg/dL Creatinine 0.86 (0.70-1.30) mg/dL Glucose 172 H (70-105) mg/dL Calcium 9.8 (8.6-10.3) mg/dL Liver Function 01/18/18 Range/Units 02:58 Total Bilirubin 0.6 (0.3-1.0) mg/dL AST 20 (13-39) Units/L ALT 13 (7-52) Units/L Alkaline Phosphatase 79 (34-104) Units/L Albumin 2.9 L (3.5-5.7) g/dL Impressions Echocardiogram 01/17/18 20:37 Impressions: Technically sub-optimal due to poor echocardiographic windows. Definity echo contrast was used. Grossly, LV systolic function appears normal. Multiple LV wall segments were not well visualized. RV not well visualized. Chest X-Ray 01/18/18 06:00 IMPRESSION: No significant change from prior exam. D/ / 01/18/2018 08:26:13 Mich Palma MD / [email or web address] Interpreting Provider: Mich Palma MD Active Medications Albuterol Sulfate (Proventil Neb) 2.5 mg IH Q2H PRN; Protocol PRN Reason: shortness of breath/ wheezing Stop: 07/19/18 13:01 Albuterol/Ipratropium (Duoneb) 3 ml IH [id number] [facility] Stop: 07/19/18 04:01 Last Admin: 01/18/18 09:37 Dose: 3 ml Aspirin (Aspirin) 81 mg PO DAILY [facility] Stop: 07/19/18 09:01 Last Admin: 01/18/18 08:05 Dose: 81 mg Dextrose/Water (Dextrose 50% (Syg)) 25 ml IVP AD PRN PRN Reason: Hypoglycemia Stop: 07/19/18 20:20 Glucagon (Glucagen) 1 mg IM ONCE PRN PRN Reason: Hypoglycemia Stop: 07/19/18 20:20 Glucose (Gluctose) 15 gm PO ONCE PRN PRN Reason: Hypoglycemia Stop: 07/19/18 20:20 Glucose (Gluctose) 30 gm PO ONCE PRN PRN Reason: Hypoglycemia Stop: 07/19/18 20:20 Nitroglycerin (Nitroglycerin Premix 25 Mg/250 Ml) 25 mg in 250 mls @ 3 mls/hr IVC .Q24H [facility] PRN Reason: 5 MCG/MIN Stop: 07/18/18 18:46 Last Admin: 01/17/18 18:25 Dose: Not Given Metronidazole (Flagyl Premix 500 Mg/100 Ml) 500 mg in 100 mls @ 100 mls/hr IVPB Q8HR [facility] Stop: 07/19/18 00:01 Last Infusion: 01/18/18 09:14 Dose: Infused Cefepime HCl 2,000 mg/ Sterile (Water) 20 mls @ 300 mls/hr IVP Q12H [facility] Stop: 07/19/18 13:01 Last Infusion: 01/18/18 01:04 Dose: Infused Dextrose (Dextrose 5%) 1,000 mls @ 100 mls/hr IVC .Q10H PRN PRN Reason: HYPOGLYCEMIA Stop: 07/19/18 20:20 Vancomycin HCl 1,500 mg/ (Sodium Chloride) 250 mls @ 166.667 mls/hr IVPB Q12H [facility] Stop: 07/20/18 21:01 Insulin Detemir (Levemir) 22 unit SQ HS [facility] Stop: 07/19/18 21:01 Last Admin: 01/17/18 22:19 Dose: 22 unit Insulin Human Lispro (Humalog) 0 units SQ HS [facility] PRN Reason: Protocol Stop: 07/19/18 21:01 Last Admin: 01/17/18 22:19 Dose: 4 unit Insulin Human Lispro (Humalog) 0 units SQ TIDAC [facility] PRN Reason: Protocol Stop: 07/20/18 07:31 Last Admin: 01/18/18 08:05 Dose: 4 units Levothyroxine Sodium (Synthroid) 150 mcg PO DAILY@0630 [facility] Stop: 07/20/18 11:16 Metoprolol Succinate (Toprol Xl) 50 mg PO DAILY [facility] Stop: 07/21/18 09:01 Oxycodone/Acetaminophen (Percocet 5/325) 1 each PO Q6HR PRN PRN Reason: Pain Stop: 07/20/18 07:41 Last Admin: 01/18/18 08:15 Dose: 1 each Ticagrelor (Brilinta) 90 mg PO BID [facility] Stop: 07/19/18 09:01 Last Admin: 01/18/18 08:05 Dose: 90 mg - Imaging and Cardiology Echo: report reviewed - EKG Interpretation EKG results cardiology: other (12 hr tele AVG HR 93, SR, episode of PAF noted) Consult Discharge Plan - Plan Referrals: Juan Abraham [Primary Care Provider] -
[2018-01-18] MEDS ORDERED: predniSONE 20 MG TABLET PO SCH (12:45)
--- NOTE | 2018-01-18 14:39 | Urology - Consult Note ---
<Kusum Valderrama N - Last Filed: 01/18/18 14:56> Date of Encounter: 01/18/18 Time of Encounter: 14:35 - Assessment and Plan (1) Gross hematuria Current Visit: Yes Status: Acute Assessment and plan: Patient is a 72 year old male who presents with gross hematuria. Hematuria is likely secondary to anticoagulation following cardiac catheterization. Discussed potential need to exchange catheter for 3-way access for CBI if needed. Nurse reports bleeding has subsided. Nurse has irrigated through catheter port twice. Reviewed CT images from 05/2017. Possible right renal cyst noted. Urinary bladder distended with no discrete mass. Patient is being transferred to . Will continue to follow. Urology CN:HPI Consult date: 01/18/18 Reason for consult Urology: Gross Hematuria History of present illness: Patient is a 72 year old male who presents with a history of gross hematuria. Patient was admitted after emergent heart catheterization for STEMI of right coronary by cardiology. Patient has ongoing pulmonary co-morbidities including pneumonia and non-small cell lung cancer. Patient reports no prior history of hematuria. Patient does admit to a smoking history from teenage years until age 39. Patient currently denies flank pain, fever, chills. Patient has indwelling carbajal catheter. Past Med Surg Social Fam HX - Past Medical History Medical history: cancer (lung), coronary artery disease, DVT, diabetes, hyperlipidemia, hypertension, migraine, myocardial infarction, other Additional medical history: GEORGE Psychiatric history: no psych history - Past Surgical History Surgical History: cataract, coronary bypass (CABG), orthopedic, other, other Additional surgical history: cardioversion. cardiac ablation. tonsillectomy - Social History Smoking Status: Former smoker Smokeless Tobacco Status: No Alcohol use: none, recent Drug use: none - Family History Mother Adopted: Yes Family Member Ethnicity: Non- Living Status: Hx Family Cardiac Disorders: No Hx Family Respiratory Disorders: No Hx Family Cancer: Yes (ovarian/uterine) Hx Family GI Disorders: Yes (diverticulitis) Hx Family Endocrine Disorder: No Hx Family Neuromuscular Disorders: No Hx Family Neurologic Disorders: No Hx Family HEENT Disorders: No Hx Family Autoimmune Disorders: Yes (psoriasis) Medications and Allergies Budesonide/Formoterol 160/4.5 [Symbicort] 2 puff IH BIDR 03/24/15 [History] Metoprolol XL (24 HR) Succ [Toprol XL] 100 mg PO DAILY 03/24/15 [History] Nitroglycerin [Nitrostat] 0.4 mg SL PRN PRN 03/24/15 [History] Ergocalciferol (VITAMIN D2) [Vitamin D2 (50,000 UNIT)] 50,000 unit PO QWEEK [History] Aspirin 81 mg PO DAILY 09/22/15 [History] Bumetanide [Bumex] 2 mg PO DAILY 07/22/16 [History] Cyanocobalamin (B-12) [Vitamin B12] 1,000 mcg IM QMONTH 07/22/16 [History] Diltiazem CD (24hr) [Cardizem CD] 120 mg PO DAILY 07/22/16 [History] Gabapentin [Neurontin] 300 mg PO BID 07/22/16 [History] Insulin Lispro Protamin/Lispro [Humalog Mix 75-25 Vial] 12 unit SQ QAM 07/22/16 [History] Insulin Lispro Protamin/Lispro [Humalog Mix 75-25 Vial] 12 unit SQ QPM 07/22/16 [History] Ipratropium/Albuterol Neb [Duoneb] 3 ml IH Q6HR PRN 07/22/16 [History] Potassium Chloride [Klor-Con Sprinkle] 10 meq PO BID 07/22/16 [History] Saxagliptin HCl [Onglyza] 2.5 mg PO DAILY 07/22/16 [History] Insulin Glargine,Hum.rec.anlog [Lantus Solostar] 56 unit SQ QAM 01/11/17 [ History] Azelastine 0.1% Nasal Kunia [Astelin] 1 puff NS BID 11/15/17 [History] HYDROcodone BIT/Homatropine LQ [Hycodan Syrup] 5 mg PO Q6H PRN 14 Days #240 ml 01/05/18 [Rx] Oxycodone HCl/Acetaminophen [Percocet 5-325 mg Tablet] 1 each PO Q6HR PRN [History] Albuterol Sulfate [Ventolin Hfa] 2 puff IH Q6H PRN 01/17/18 [History] Levothyroxine [Synthroid] 150 mcg PO DAILY #30 tablet 01/17/18 [Rx] Nivolumab [Opdivo] 40 mg IV QMONTH 01/17/18 [History] Olopatadine HCl [Patanase] 30.5 gm NS BID 01/17/18 [History] 3 Allergy/AdvReac Type Severity Reaction Status Date / Time Amoxicillin Allergy Hives Verified 01/16/18 18:39 adhesive AdvReac Rash Verified 01/16/18 18:39 Review of Systems - Constitutional no chills, no fatigue, no fever(s) - EENT Nose, mouth and throat: no dizziness, no headache(s) - Cardiovascular no chest pain, no dyspnea - Respiratory no cough, no dyspnea - Gastrointestinal no abdominal pain, no nausea, no vomiting - Genitourinary hematuria, no difficulty urinating, no dysuria, no flank pain - Musculoskeletal no back pain, no muscle weakness - Integumentary no rash, no swelling - Neurological no confusion, no syncope - Psychiatric no anxiety, no confusion Exam Initial Vital Signs Temp Pulse Resp BP Pulse Ox 98.2 F 100 22 108/60 92 01/16/18 18:40 01/16/18 18:40 01/16/18 18:40 01/16/18 18:40 01/16/18 18:40 - General physical appearance Present: well developed, no distress, no pain, obese - Eyes Present: PERRL, normal ocular movement - ENT Present: normal nares, no hearing loss, no congestion - Neck Present: no masses, trachea midline - Respiratory Present: normal respiratory effort - Abdomen Abdomen: Present: soft, non tender - Genitourinary normal penis with no external lesions, other (indwelling carbajal in good position ; draining dark yellow urine into bedside bag; sediment in tubing; urine color is transparent cranberry in bag ) - Integumentary Present: no rash, no abnormal pigmentation - Neurologic Present: normal coordination - Musculoskeletal Present: other (bilateral venous stasis lower extremities ) Urology Results - Labs 01/18/18 02:58 01/18/18 02:58 Abnormal lab results RBC 3.88 M/mcL (4.19-5.50) L 01/18/18 02:58 Hgb 12.1 g/dL (12.9-16.9) L 01/18/18 02:58 Hct 37.4 % (37.5-50.1) L 01/18/18 02:58 RDW 16.1 % (11.5-14.5) H 01/18/18 02:58 MPV 9.1 fL (9.4-12.4) L 01/18/18 02:58 PT 13.2 Seconds (9.4-12.1) H 01/17/18 20:25 Heparin Anti-Xa, Unfract 0.76 IU/mL (0.30-0.70) H 01/16/18 21:01 ABG pCO2 46 mmHg (35-45) H 01/17/18 11:15 ABG HCO3 30 mEq/L (21-27) H 01/17/18 11:15 ABG Total CO2 32 mEq/L (20-26) H 01/17/18 11:15 ABG Base Excess 5 mEq/L (-2 to 3) H 01/17/18 11:15 Glucose 172 mg/dL (70-105) H 01/18/18 02:58 POC Glucose 224 mg/dL (70-99) H 01/18/18 11:53 Troponin I 0.40 ng/mL (< 0.04) H* 01/16/18 21:01 Serum Total Protein 5.9 g/dL (6.4-8.9) L 01/18/18 02:58 Albumin 2.9 g/dL (3.5-5.7) L 01/18/18 02:58 Albumin/Globulin Ratio 1.0 (1.1-2.2) L 01/18/18 02:58 Diabetes panel 01/18/18 Range/Units 02:58 Sodium 139 (136-145) mEq/L Potassium 3.6 (3.5-5.1) mEq/L Chloride 106 (98-107) mEq/L Carbon Dioxide 27 (23-29) mEq/L BUN 12 (8-23) mg/dL Creatinine 0.86 (0.70-1.30) mg/dL Glucose 172 H (70-105) mg/dL Calcium 9.8 (8.6-10.3) mg/dL AST 20 (13-39) Units/L ALT 13 (7-52) Units/L Alkaline Phosphatase 79 (34-104) Units/L Albumin 2.9 L (3.5-5.7) g/dL Calcium panel 01/18/18 Range/Units 02:58 Calcium 9.8 (8.6-10.3) mg/dL Albumin 2.9 L (3.5-5.7) g/dL Pituitary panel 01/18/18 Range/Units 02:58 Sodium 139 (136-145) mEq/L Potassium 3.6 (3.5-5.1) mEq/L Chloride 106 (98-107) mEq/L Carbon Dioxide 27 (23-29) mEq/L BUN 12 (8-23) mg/dL Creatinine 0.86 (0.70-1.30) mg/dL Glucose 172 H (70-105) mg/dL Calcium 9.8 (8.6-10.3) mg/dL Adrenal panel 01/18/18 Range/Units 02:58 Sodium 139 (136-145) mEq/L Potassium 3.6 (3.5-5.1) mEq/L Chloride 106 (98-107) mEq/L Carbon Dioxide 27 (23-29) mEq/L BUN 12 (8-23) mg/dL Creatinine 0.86 (0.70-1.30) mg/dL Glucose 172 H (70-105) mg/dL Calcium 9.8 (8.6-10.3) mg/dL Total Bilirubin 0.6 (0.3-1.0) mg/dL AST 20 (13-39) Units/L ALT 13 (7-52) Units/L Alkaline Phosphatase 79 (34-104) Units/L Albumin 2.9 L (3.5-5.7) g/dL All other labs normal. - Imaging CT scan - abdomen: report reviewed, image reviewed CT scan - pelvis: report reviewed (05/10/17 CT scan abdomen and pelvis), image reviewed Consult Discharge Plan - Plan Referrals: Naveed Chicas, REVERBERATORY SKIMMER [Advanced Practice Nurse] - (Office will call patient at home with follow up appointment) Juan Abraham [Primary Care Provider] - (left message for office to call me back) <Brian Murdock - Last Filed: 01/19/18 07:24> Date of Encounter: 01/19/18 Exam Initial Vital Signs Temp Pulse Resp BP Pulse Ox 98.2 F 100 22 108/60 92 01/16/18 18:40 01/16/18 18:40 01/16/18 18:40 01/16/18 18:40 01/16/18 18:40 Urology Results - Labs 01/19/18 05:14 01/19/18 05:14 Abnormal lab results RBC 3.27 M/mcL (4.19-5.50) L 01/19/18 05:14 Hgb 10.0 g/dL (12.9-16.9) L D 01/19/18 05:14 Hct 31.0 % (37.5-50.1) L 01/19/18 05:14 RDW 16.1 % (11.5-14.5) H 01/19/18 05:14 MPV 9.3 fL (9.4-12.4) L 01/19/18 05:14 PT 13.2 Seconds (9.4-12.1) H 01/17/18 20:25 Heparin Anti-Xa, Unfract 0.76 IU/mL (0.30-0.70) H 01/16/18 21:01 ABG pCO2 46 mmHg (35-45) H 01/17/18 11:15 ABG HCO3 30 mEq/L (21-27) H 01/17/18 11:15 ABG Total CO2 32 mEq/L (20-26) H 01/17/18 11:15 ABG Base Excess 5 mEq/L (-2 to 3) H 01/17/18 11:15 Glucose 254 mg/dL (70-105) H 01/19/18 05:14 POC Glucose 304 mg/dL (70-99) H 01/18/18 19:54 Phosphorus 2.1 mg/dL (2.7-4.5) L 01/19/18 05:14 Troponin I 0.40 ng/mL (< 0.04) H* 01/16/18 21:01 Serum Total Protein 5.9 g/dL (6.4-8.9) L 01/18/18 02:58 Albumin 2.9 g/dL (3.5-5.7) L 01/18/18 02:58 Albumin/Globulin Ratio 1.0 (1.1-2.2) L 01/18/18 02:58 Diabetes panel 01/18/18 01/19/18 Range/Units 02:58 05:14 Sodium 139 137 (136-145) mEq/L Potassium 3.6 4.1 (3.5-5.1) mEq/L Chloride 106 104 (98-107) mEq/L Carbon Dioxide 27 26 (23-29) mEq/L BUN 12 11 (8-23) mg/dL Creatinine 0.86 0.82 (0.70-1.30) mg/dL Glucose 172 H 254 H (70-105) mg/dL Calcium 9.8 9.6 (8.6-10.3) mg/dL AST 20 (13-39) Units/L ALT 13 (7-52) Units/L Alkaline Phosphatase 79 (34-104) Units/L Albumin 2.9 L (3.5-5.7) g/dL Calcium panel 01/18/18 01/19/18 Range/Units 02:58 05:14 Calcium 9.8 9.6 (8.6-10.3) mg/dL Phosphorus 2.1 L (2.7-4.5) mg/dL Albumin 2.9 L (3.5-5.7) g/dL Pituitary panel 01/18/18 01/19/18 Range/Units 02:58 05:14 Sodium 139 137 (136-145) mEq/L Potassium 3.6 4.1 (3.5-5.1) mEq/L Chloride 106 104 (98-107) mEq/L Carbon Dioxide 27 26 (23-29) mEq/L BUN 12 11 (8-23) mg/dL Creatinine 0.86 0.82 (0.70-1.30) mg/dL Glucose 172 H 254 H (70-105) mg/dL Calcium 9.8 9.6 (8.6-10.3) mg/dL Adrenal panel 01/18/18 01/19/18 Range/Units 02:58 05:14 Sodium 139 137 (136-145) mEq/L Potassium 3.6 4.1 (3.5-5.1) mEq/L Chloride 106 104 (98-107) mEq/L Carbon Dioxide 27 26 (23-29) mEq/L BUN 12 11 (8-23) mg/dL Creatinine 0.86 0.82 (0.70-1.30) mg/dL Glucose 172 H 254 H (70-105) mg/dL Calcium 9.8 9.6 (8.6-10.3) mg/dL Total Bilirubin 0.6 (0.3-1.0) mg/dL AST 20 (13-39) Units/L ALT 13 (7-52) Units/L Alkaline Phosphatase 79 (34-104) Units/L Albumin 2.9 L (3.5-5.7) g/dL All other labs normal. - Attending Attestation The patient was seen and examined today independently from the PA. He has a 72- year-old man with a recent CT. He has been on anticoagulants and developed hematuria. He has an indwelling catheter. Today, he is somewhat somnolent early in the morning. He denies any pain. Urine is clear from the catheter. At the primary team needs to increase anticoagulants, we can do so cautiously. Bleeding seems to be improved at this point. Primary team can remove catheter when no longer needed. I would recommend that he follow up with me for a cystoscopy as an outpatient to confirm that there is no concerning lesion in the bladder as a source for the bleeding.
[2018-01-18] MEDS ORDERED: Nitroglycerin 25 MG/250 ML INFUS..BTL IVC SCH (15:58)
[2018-01-18] MEDS ORDERED: D5% in Water 1,000 ML IVC PRN (15:58)
[2018-01-18] MEDS ORDERED: *HR* Dextrose 50 % in Water (Syg) 50 ML SYRINGE IVP PRN (15:58)
[2018-01-18] MEDS ORDERED: Albuterol 2.5 MG/3 ML NEBULIZER IH PRN (15:58)
[2018-01-18] MEDS ORDERED: Dextrose Gel 15 GM/37.5 ML TUBE PO PRN ×2 (15:58)
[2018-01-18] MEDS: *HR* Heparin 5,000 UNIT/ML VIAL SQ SCH (16:59)
[2018-01-18] MEDS ORDERED: *HR* Heparin 5,000 UNIT/ML VIAL SQ SCH (18:00)
[2018-01-18] MEDS ORDERED: Insulin DETEMIR 100 UNIT/ML X5UNITS SQ SCH (21:00)
--- NOTE | 2018-01-18 22:27 | Internal Med Progress Note ---
Hospitalist Progress Note - Encounter Date of Encounter: 01/18/18 Time of Encounter: 19:00 - Subjective Interval History: SUBJECTIVE: He is breathing seems to be better. It is not labored anymore. He is using 5 L /min nasal cannula oxygen (23 L/min at home). Denies chest pain. He does have mild cough but not wheezing. Denies abdominal pain, nausea and vomiting. He makes good amounts of urine. OBJECTIVE: Skin: Free of rash and discoloration. ENMT: Oral/pharyngeal mucosa is normal in appearance. Eyes: Sclera is white. There is no discharge from eyes. Respiratory: Normal breath sounds; no crackles or wheezes. CV: Heart is regular; no gallop or murmur. GI: Abdomen is soft and not tender. There is no palpable mass or visceromegaly. Neuro: There is no focal deficits. ASSESSMENT AND PLAN: The patient was admitted by cardiology for treatment of STEMI; NSVT was noticed. She underwent cardiac catheterization; and nonobstructive thrombus was found in one of her coronary grafts. He is on Brilinta and aspirin. She is not getting beta-blockers due to her poor respiratory status. Postobstructive pneumonia/COPD exacerbation. Pulmonary disease is consulted. The patient is switched to IV vancomycin/IV cefepime. We will continue nebulizer treatments with DuoNeb. The patient has underlying non-small cell cancer of right lung. He gets outpatient treatments, as scheduled by oncology. Type 2 diabetes mellitus. He is on diabetic diet and when necessary insulin Humalog. - Exam Vitals: Temp Pulse Resp BP Pulse Ox 97.6 F 85 18 147/85 95 01/18/18 19:23 01/18/18 19:23 01/18/18 22:17 01/18/18 19:54 01/18/18 22:17 Exam: xxx - Assessment and Plan (1) STEMI (ST elevation myocardial infarction) Current Visit: Yes Status: Acute (2) NSVT (nonsustained ventricular tachycardia) Current Visit: Yes Status: Acute (3) Postobstructive pneumonia Current Visit: Yes Status: Acute (4) Non-small cell cancer of right lung Current Visit: Yes Status: Chronic (5) IDDM (insulin dependent diabetes mellitus) Current Visit: Yes Status: Chronic - Time Spent with Patient Total time spent is greater than 50% in coordination of care (as documented) at patient's floor/unit and/or counseling patient: 25 - 35 minutes Plan of Care Discussed with: nurse Internal Medicine: Result - Labs CBC & Chem 7: 01/18/18 02:58 01/18/18 02:58 Labs: Short CBC 01/18/18 Range/Units 02:58 WBC 10.3 (4.3-11.1) K/mcL Hgb 12.1 L (12.9-16.9) g/dL Hct 37.4 L (37.5-50.1) % Plt Count 277 (140-400) K/mcL Neutrophils # 7.7 (1.6-8.9) K/mcL BMP 01/18/18 02:58 Sodium 139 Potassium 3.6 Chloride 106 Carbon Dioxide 27 BUN 12 Creatinine 0.86 Glucose 172 H Calcium 9.8 Liver Function 01/18/18 Range/Units 02:58 Total Bilirubin 0.6 (0.3-1.0) mg/dL AST 20 (13-39) Units/L ALT 13 (7-52) Units/L Alkaline Phosphatase 79 (34-104) Units/L Albumin 2.9 L (3.5-5.7) g/dL - ABG Interpretation ABG results: ABG ABG pH 7.42 pH Units (7.32-7.45) 01/17/18 11:15 ABG pCO2 46 mmHg (35-45) H 01/17/18 11:15 ABG pO2 85 mmHg (85-104) 01/17/18 11:15 ABG O2 Saturation 96 % (95-98) 01/17/18 11:15 PT/INR, D-dimer PT 13.2 Seconds (9.4-12.1) H 01/17/18 20:25 - Impressions Impressions Chest X-Ray 01/18/18 06:00 IMPRESSION: No significant change from prior exam. D/ / 01/18/2018 08:26:13 Mich Palma MD / harish Interpreting Provider: Mich Palma MD Consult Discharge Plan - Plan Referrals: Naveed Chicas, CORPORATE TRAFFIC MANAGER [Advanced Practice Nurse] - (Office will call patient at home with follow up appointment) Juan Abraham [Primary Care Provider] - (left message for office to call me back) (1) STEMI (ST elevation myocardial infarction) Qualifiers: Involved coronary artery: unspecified coronary artery Qualified Code(s): I21.3 - ST elevation (STEMI) myocardial infarction of unspecified site
[2018-01-19] MEDS: Cefepime HCl 2,000 MG in Water for inj. (sterile) 20 ML 20 ML IVP SCH ×2 (00:27→12:48)
[2018-01-19] MEDS: MetroNIDAZOLE 500 MG/100 ML 500 MG/100 ML BAG IVPB SCH ×3 (00:30→16:47)
[2018-01-19] MEDS: Ipratropium/Albuterol Neb 3 ML IH SCH ×4 (03:54→22:29)
[2018-01-19] MEDS: *HR* Heparin 5,000 UNIT/ML VIAL SQ SCH ×2 (06:13→16:47)
[2018-01-19 06:21] LABS: Basophils % 0.5 %; Immature Granulocytes % 0.8 % (0-4); Lymphocytes # 0.8 K/mcL (0.6-4.6); Lymphocytes % 8.8 %; Mean Corpuscular HGB Conc 32.3 g/dL (31.6-35.5); Mean Corpuscular Hemoglobin 30.6 pg (28.0-33.3); Mean Corpuscular Volume 94.8 fL (83.0-100.0); Mean Platelet Volume 9.3 fL (9.4-12.4); Monocytes # 0.6 K/mcL (0.0-1.3); Monocytes % 7.3 %; Neutrophils # 7.1 K/mcL (1.6-8.9); Platelet Count 308 K/mcL (140-400); Red Blood Count 3.27 M/mcL (4.19-5.50); Red Cell Distribution Width 16.1 % (11.5-14.5); Segmented Neutrophils % 82.6 %
[2018-01-19 06:40] LABS: BUN/Creatinine Ratio 13 (6-26); Blood Urea Nitrogen 11 mg/dL (8-23); Calcium 9.6 mg/dL (8.6-10.3); Carbon Dioxide 26 mEq/L (23-29); Chloride 104 mEq/L (98-107); Glucose 254 mg/dL (70-105); Magnesium 1.8 mg/dL (1.6-2.6); Osmolality,Calculated 292 (280-300); Phosphorous 2.1 mg/dL (2.7-4.5); Potassium 4.1 mEq/L (3.5-5.1); Sodium 137 mEq/L (136-145); eGFR For Non-African Americans > 60 (> 60)
--- NOTE | 2018-01-19 08:27 | Urology Progress Note ---
Date of Encounter: 01/19/18 Time of Encounter: 08:10 - Assessment and Plan (1) Gross hematuria Current Visit: Yes Status: Acute Assessment and plan: Patient is a 72 year old male who presents with a history of gross hematuria. Patient's urine is completely clear with no sediment. Discussed catheter removal with voiding trial one week after discharge. Will discuss cystoscopy at outpatient appointment. Progress Note Subjective: no new complaints Narrative: Patient seen and examined sitting upright in bed in no apparent distress. Patient eating breakfast. Tolerating normal diet. Indwelling carbajal draining clear urine. Objective Initial Vital Signs Temp Pulse Resp BP Pulse Ox 98.2 F 100 22 108/60 92 01/16/18 18:40 01/16/18 18:40 01/16/18 18:40 01/16/18 18:40 01/16/18 18:40 - General physical appearance Present: well developed, no distress, no pain, obese - Respiratory Present: normal expansion, normal respiratory effort - Abdomen Present: soft, non tender - Genitourinary Urine Appearance: Present: Clear - Integumentary Present: no rash, no abnormal pigmentation - Musculoskeletal Present: normal posture - Psychiatric Present: oriented to time, oriented to person, oriented to place, speech is normal, memory intact - Labs 01/19/18 05:14 01/19/18 05:14 Diabetes panel 01/18/18 01/19/18 Range/Units 02:58 05:14 Sodium 139 137 (136-145) mEq/L Potassium 3.6 4.1 (3.5-5.1) mEq/L Chloride 106 104 (98-107) mEq/L Carbon Dioxide 27 26 (23-29) mEq/L BUN 12 11 (8-23) mg/dL Creatinine 0.86 0.82 (0.70-1.30) mg/dL Glucose 172 H 254 H (70-105) mg/dL Calcium 9.8 9.6 (8.6-10.3) mg/dL AST 20 (13-39) Units/L ALT 13 (7-52) Units/L Alkaline Phosphatase 79 (34-104) Units/L Albumin 2.9 L (3.5-5.7) g/dL Calcium panel 01/18/18 01/19/18 Range/Units 02:58 05:14 Calcium 9.8 9.6 (8.6-10.3) mg/dL Phosphorus 2.1 L (2.7-4.5) mg/dL Albumin 2.9 L (3.5-5.7) g/dL Pituitary panel 01/18/18 01/19/18 Range/Units 02:58 05:14 Sodium 139 137 (136-145) mEq/L Potassium 3.6 4.1 (3.5-5.1) mEq/L Chloride 106 104 (98-107) mEq/L Carbon Dioxide 27 26 (23-29) mEq/L BUN 12 11 (8-23) mg/dL Creatinine 0.86 0.82 (0.70-1.30) mg/dL Glucose 172 H 254 H (70-105) mg/dL Calcium 9.8 9.6 (8.6-10.3) mg/dL Adrenal panel 18 01/19/18 Range/Units 02:58 05:14 Sodium 139 137 (136-145) mEq/L Potassium 3.6 4.1 (3.5-5.1) mEq/L Chloride 106 104 (98-107) mEq/L Carbon Dioxide 27 26 (23-29) mEq/L BUN 12 11 (8-23) mg/dL Creatinine 0.86 0.82 (0.70-1.30) mg/dL Glucose 172 H 254 H (70-105) mg/dL Calcium 9.8 9.6 (8.6-10.3) mg/dL Total Bilirubin 0.6 (0.3-1.0) mg/dL AST 20 (13-39) Units/L ALT 13 (7-52) Units/L Alkaline Phosphatase 79 (34-104) Units/L Albumin 2.9 L (3.5-5.7) g/dL Consult Discharge Plan - Plan Referrals: Naveed Chicas, SUPERVISOR IN [employer] TESTING [Advanced Practice Nurse] - (Office will call patient at home with follow up appointment) Juan Abraham [Primary Care Provider] - (left message for office to call me back)
[2018-01-19] MEDS: Insulin LISPRO 300 UNITS/3 ML VIAL SQ SCH ×4 (08:35→20:38)
[2018-01-19] MEDS: predniSONE 20 MG TABLET PO SCH (08:37)
[2018-01-19] MEDS: *HR* Ticagrelor 90 MG TABLET PO SCH (08:37)
[2018-01-19] MEDS ORDERED: Metoprolol XL (24 HR) Succ 50 MG TAB.ER.24H PO SCH ×2 (09:00)
[2018-01-19] MEDS ORDERED: Aspirin 81 MG TAB.CHEW PO SCH (09:00)
--- NOTE | 2018-01-19 11:41 | Cardiology Progress Note ---
Date of Encounter: 01/19/18 Time of Encounter: 11:39 Assessment and Plan (1) STEMI (ST elevation myocardial infarction) Current Visit: Yes Status: Acute S/P emergent [facility] evening of 01/16-severe 3V CAD. S/P CABG 3/3 patent bypass grafts. Significant Clot in the distal SVG to RPDA (likely culprit). Recommended medical therapy, Aggrastat IV x 24 hrs. CALVIN 3 flow in SVG to RPDA. TTE Technically sub-optimal due to poor windows. Definity was used. Grossly, LV function appears normal. Pt developed gross hematuria 01/17 overnight, Aggrastat stopped. Hematuria has resolved. Urology consulted--possible outpt cystoscopy. Stopped ASA today and switched Brilinta to Plavix (300mg loading dose) to reduce bleeding risk. Starting Coumadin tonight for PAF. HGB 12.1 yesterday, 10.0 today. No evidence of current bleeding. Starting Coumadin tonight, will keep at least another 24 hours hours to monitor H&H and to rate control his A-Fib. Continue BB. No statin due intolerance/myalgias. Qualifiers: Involved coronary artery: unspecified coronary artery Qualified Code(s): I21.3 - ST elevation (STEMI) myocardial infarction of unspecified site (2) PAF (paroxysmal atrial fibrillation) Current Visit: Yes Status: Acute Episode of PAF on telemetry yesterday AM. Currently appears A-Fib RVR, HR low 100s. Will obtain ECG to confirm. Hx of A- Flutter s/p ablation in 2014. Increase Toprol XL to 100mg daily (home dose). AVG HR 98. Was also on Cardizem CD 120mg daily at home, not yet resumed. Consider resuming if needed for HR/BP control. [id number] (Age, HTN, DM, CAD). High CVA risk. Initially on ASA and Brilinta s /p STEMI. Was on aggrastat gtt and developed hematuria, now resolved. Discussed with Dr. Richardson. He recommends stopping ASA, switching Brilinta to Plavix to reduce bleeding risk, and starting Coumadin for AC. Pt agrees. Will refer to Coumadin clinic as outpt. Pharmacy to dose inpt with goal INR 2- 3. Will not bridge given his hematuria on 01/17 and drop in HGB from 12.1 to 10.0 today. Monitor H&H closely. (3) NSVT (nonsustained ventricular tachycardia) Current Visit: Yes Status: Acute 18 beat run NSVT 9/11 AM. Replaced K and Mag. No recurrence of NSVT. Increasing BB back to home dose--Toprol XL 100mg daily. (4) Non-small cell cancer of right lung Current Visit: Yes Status: Chronic Management per pulmonoloy/oncology. Discussed with pulm. Plan to delay biopsy for 6 weeks given ACS. (5) Postobstructive pneumonia Current Visit: Yes Status: Acute Management per hospitalist/pulmonology. Will need rx for antibiotics and steroids from pulm at d/c. Discussion w patient/family: The assessment and plan as outlined above was discussed with the patient and/or family members who expressed understanding and agreement. All questions were answered. Thank you for involving us in the care of your patient. Please call with any questions. I will discuss all the above with Dr. Richardson and make changes as necessary. Subjective Principal diagnosis: STEMI Interval history: Pt denies acute cardiac complaints. Denies chest pain or worsening dyspnea from his baseline. Telemetry reviewed. No ventricular events. Current rhythm appears A-Fib. Objective Vital Signs, Last 4 Hours Temp Pulse Resp BP Pulse Ox 01/19/18 11:38 97.8 F 113 22 152/121 97 01/19/18 10:37 18 98 Vital Signs Temp Pulse Resp BP Pulse Ox 01/19/18 11:38 97.8 F 113 22 152/121 97 01/19/18 10:37 18 98 01/19/18 07:28 97.9 F 86 18 170/85 96 01/19/18 03:54 14 99 01/19/18 03:38 97.8 F 85 17 128/77 96 01/18/18 23:29 97.8 F 84 18 145/76 97 01/18/18 22:17 18 95 01/18/18 19:54 147/85 01/18/18 19:23 97.6 F 85 19 162/88 95 01/18/18 17:00 92 20 113/75 95 01/18/18 16:00 92 01/18/18 15:58 97.6 F 95 20 155/112 96 01/18/18 15:15 18 95 01/18/18 12:00 97.6 F 84 18 152/94 95 Intake and Output 01/18/18 01/19/18 01/19/18 23:59 07:59 15:59 Intake Total 350 / 350 370 / 370 Output Total 1200 / 1200 1475 / 1475 250 / 250 Balance -850 / -850 -1105 / -1105 -250 / -250 Intake: IV Fluids 350 / 350 120 / 120 Maxipime 2,000 MG In Water for 20 / 20 inj. (sterile) 20 ML @ 300 mls/ hr IVP Q12H [facility] Rx#:[id number] Flagyl Premix 500 MG/100 ML 500 100 / 100 100 / 100 mg In 100 ml @ 100 mls/hr IVPB Q8HR [facility] Rx#:[id number] Vancocin 1,500 MG In 0.9 % 250 / 250 Sodium Chloride 250 ML @ 166. 667 mls/hr IVPB Q12H [facility] Rx#: [id number] Oral 250 / 250 Output: Urine 525 / 525 Catheter 1200 / 1200 950 / 950 250 / 250 Other: Meal Breakfast Percent of Meal Consumed 0% Weight 148.5 kg Blood Glucose* 304 271 Patient Weight 01/19/18 23:59 Weight 148.5 kg General: Conversant, No Apparent Distress HEENT: Atraumatic, Normocephaly, Mucus Membranes Moist Neck: Normal carotid pulses Cardiac: No Murmur, Other (irregularly irregular) Lungs: Other (diminished) Neuro: Alert and responsive, No focal deficits noted Abdomen: Soft, Non-Tender Skin: No rashes noted on visualized skin Musculoskeletal: No Chest Wall Tenderness Extremities: Other (moderate LE edema) Results 01/19/18 05:14 01/19/18 05:14 Lab Results 01/19/18 01/19/18 05:14 05:14 WBC 8.5 Hgb 10.0 L D Hct 31.0 L Plt Count 308 Sodium 137 Potassium 4.1 Chloride 104 Carbon Dioxide 26 BUN 11 Creatinine 0.82 Glucose 254 H Calcium 9.6 Magnesium 1.8 Short CBC 01/19/18 Range/Units 05:14 WBC 8.5 (4.3-11.1) K/mcL Hgb 10.0 L D (12.9-16.9) g/dL Hct 31.0 L (37.5-50.1) % Plt Count 308 (140-400) K/mcL Neutrophils # 7.1 (1.6-8.9) K/mcL BMP 01/19/18 Range/Units 05:14 Sodium 137 (136-145) mEq/L Potassium 4.1 (3.5-5.1) mEq/L Chloride 104 (98-107) mEq/L Carbon Dioxide 26 (23-29) mEq/L BUN 11 (8-23) mg/dL Creatinine 0.82 (0.70-1.30) mg/dL Glucose 254 H (70-105) mg/dL Calcium 9.6 (8.6-10.3) mg/dL Active Medications Albuterol Sulfate (Proventil Neb) 2.5 mg IH Q2H PRN; Protocol PRN Reason: shortness of breath/ wheezing Stop: 07/19/18 13:01 Albuterol/Ipratropium (Duoneb) 3 ml IH [id number] [facility] Stop: 07/19/18 04:01 Last Admin: 01/19/18 10:36 Dose: 3 ml Clopidogrel Bisulfate (Plavix) 75 mg PO DAILY [facility] Stop: 07/22/18 09:01 Dextrose/Water (Dextrose 50% (Syg)) 25 ml IVP AD PRN PRN Reason: Hypoglycemia Stop: 07/19/18 20:20 Glucagon (Glucagen) 1 mg IM ONCE PRN PRN Reason: Hypoglycemia Stop: 07/19/18 20:20 Glucose (Gluctose) 15 gm PO ONCE PRN PRN Reason: Hypoglycemia Stop: 07/19/18 20:20 Glucose (Gluctose) 30 gm PO ONCE PRN PRN Reason: Hypoglycemia Stop: 07/19/18 20:20 Heparin Sodium (Porcine) (Heparin) 5,000 unit SQ Q12HCO [facility] Stop: 07/20/18 18:01 Last Admin: 01/19/18 06:13 Dose: 5,000 unit Cefepime HCl 2,000 mg/ Sterile (Water) 20 mls @ 300 mls/hr IVP Q12H [facility] Stop: 07/19/18 13:01 Last Infusion: 01/19/18 00:31 Dose: Infused Dextrose (Dextrose 5%) 1,000 mls @ 100 mls/hr IVC .Q10H PRN PRN Reason: HYPOGLYCEMIA Stop: 07/19/18 20:20 Metronidazole (Flagyl Premix 500 Mg/100 Ml) 500 mg in 100 mls @ 100 mls/hr IVPB Q8HR [facility] Stop: 07/19/18 00:01 Last Admin: 01/19/18 08:36 Dose: 200 mls/hr Nitroglycerin (Nitroglycerin Premix 25 Mg/250 Ml) 25 mg in 250 mls @ 3 mls/hr IVC .Q24H [facility] PRN Reason: 5 MCG/MIN Stop: 07/18/18 18:46 Vancomycin HCl 1,500 mg/ (Sodium Chloride) 250 mls @ 166.667 mls/hr IVPB Q12H [facility] Stop: 07/20/18 21:01 Last Admin: 01/19/18 08:36 Dose: 167 mls/hr Insulin Detemir (Levemir) 35 unit SQ HS [facility] Stop: 07/21/18 21:01 Insulin Human Lispro (Humalog) 0 units SQ HS [facility] PRN Reason: Protocol Stop: 07/19/18 21:01 Last Admin: 01/18/18 21:10 Dose: 5 units Insulin Human Lispro (Humalog) 0 units SQ TIDAC [facility] PRN Reason: Protocol Stop: 07/20/18 07:31 Last Admin: 01/19/18 08:35 Dose: 8 units Levothyroxine Sodium (Synthroid) 150 mcg PO DAILY@0630 [facility] Stop: 07/20/18 11:16 Last Admin: 01/19/18 06:13 Dose: 150 mcg Metoprolol Succinate (Toprol Xl) 50 mg PO DAILY [facility] Stop: 07/21/18 09:01 Last Admin: 01/19/18 08:37 Dose: 50 mg Oxycodone/Acetaminophen (Percocet 5/325) 1 each PO Q6HR PRN PRN Reason: Pain Stop: 07/20/18 07:41 Prednisone (Prednisone) 40 mg PO DAILY [facility] Stop: 07/20/18 12:46 Last Admin: 01/19/18 08:37 Dose: 40 mg Warfarin Sodium (Coumadin Perpt) 1 each PO DAILY@1800 PRN PRN Reason: SEE COMMENTS Stop: 07/21/18 18:01 - Imaging and Cardiology Echo: report reviewed - EKG Interpretation EKG results cardiology: other (12 hr tele AVG HR 98, PAF) Consult Discharge Plan - Plan Referrals: Naveed Chicas, CHAIRLIFT OPERATOR [Advanced Practice Nurse] - (Office will call patient at home with follow up appointment) Juan Abraham [Primary Care Provider] - (SENT WEB REQUEST ON 01-19-18 @ [id number])
[2018-01-19] MEDS ORDERED: Metoprolol XL (24 HR) Succ 50 MG TAB.ER.24H PO ONE (12:07)
--- NOTE | 2018-01-19 12:33 | Event Note ---
Date of Encounter: 01/19/18 Time of Encounter: 12:31 - Cardiology Event Note Discussed plan with pt's and daughter. They are hesitant to start Coumadin. They prefer to check HGB in AM then make their final decision. Resume 81mg ASA for now. They are aware of increased CVA risk if we do not start Coumadin. Further recs pending tomorrow's discussion with family.
--- NOTE | 2018-01-19 14:37 | Pulmonology Progress Note ---
Date of Encounter: 01/19/18 Time of Encounter: 11:00 Assessment and Plan (1) Acute and chronic respiratory failure Current Visit: Yes Status: Acute Acute on chronic hypoxic respiratory failure secondary to chronic interstitial lung disease complicated by metastatic small cell lung cancer now with possible postobstructive pneumonia. Patient is slowly getting better with steroids as V/ Q mismatch is slowly getting back to his baseline. Patient V/Q mismatch is not getting better we will repeat chest imaging to make sure his pleural effusion is not worsening. Qualifiers: Respiratory failure complication: hypoxia Qualified Code(s): J96.21 - Acute and chronic respiratory failure with hypoxia (2) STEMI (ST elevation myocardial infarction) Current Visit: Yes Status: Acute Patient had this ST elevation [place] due to obstructive coronary artery disease with a clot in his saphenous venous graft he was not stented. Patient had GP IIb - IIIa inhibitor he was transitioned to Brilinta then aspirin and plavix. 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 Discussed with this primary joint maker machine and oncologist agreed there will be no bronchoscopic intervention for now. Patient has to follow up with Dr. Ludwig for further discussion about management of his lung cancer. (4) Postobstructive pneumonia Current Visit: Yes Status: Acute Continue broad-spectrum antibiotics for now will stop vancomycin we will continue cefepime ad Flayl. On discharge he might be sent home on Levaquin for at least 7 days of total therapy. Sputum cultures reviewed (5) GEORGE treated with BiPAP Current Visit: Yes Status: Acute Patient is on BiPAP I ordered a new BiPAP machine to [facility] patient will be getting the New sleep apnea machine soon Subjective Principal diagnosis: STEMI Interval history: Patient is doing well better than yesterday breathing [place] after starting steroid therapy. Patient has some cough not much sputum production had a good night's sleep with BiPAP. Patient hematuria is lot better today patient denies any chest pain, chest tightness has some shortness of breath on exertion. Objective PUL Vital signs: Last Vital Signs Temp 97.8 F 01/19/18 11:38 Pulse 113 01/19/18 11:38 Resp 22 01/19/18 11:38 BP 152/121 01/19/18 11:38 Pulse Ox 97 01/19/18 11:38 Effort: mildly labored Auscultation: right: wheezes (scattered wheeze ) Musculoskeletal: no deformities normal mental status, non-focal exam mood appropriate Results - Laboratory Findings CBC and BMP: 01/19/18 05:14 01/19/18 05:14 ABG ABG pH 7.42 pH Units (7.32-7.45) 01/17/18 11:15 ABG pCO2 46 mmHg (35-45) H 01/17/18 11:15 ABG pO2 85 mmHg (85-104) 01/17/18 11:15 ABG O2 Saturation 96 % (95-98) 01/17/18 11:15 PT/INR, D-dimer PT 13.2 Seconds (9.4-12.1) H 01/17/18 20:25 Abnormal lab findings: Abnormal lab results RBC 3.27 M/mcL (4.19-5.50) L 01/19/18 05:14 Hgb 10.0 g/dL (12.9-16.9) L D 01/19/18 05:14 Hct 31.0 % (37.5-50.1) L 01/19/18 05:14 RDW 16.1 % (11.5-14.5) H 01/19/18 05:14 MPV 9.3 fL (9.4-12.4) L 01/19/18 05:14 PT 13.2 Seconds (9.4-12.1) H 01/17/18 20:25 Heparin Anti-Xa, Unfract 0.76 IU/mL (0.30-0.70) H 01/16/18 21:01 ABG pCO2 46 mmHg (35-45) H 01/17/18 11:15 ABG HCO3 30 mEq/L (21-27) H 01/17/18 11:15 ABG Total CO2 32 mEq/L (20-26) H 01/17/18 11:15 ABG Base Excess 5 mEq/L (-2 to 3) H 01/17/18 11:15 Glucose 254 mg/dL (70-105) H 01/19/18 05:14 POC Glucose 304 mg/dL (70-99) H 01/18/18 19:54 Phosphorus 2.1 mg/dL (2.7-4.5) L 01/19/18 05:14 Troponin I 0.40 ng/mL (< 0.04) H* 01/16/18 21:01 Serum Total Protein 5.9 g/dL (6.4-8.9) L 01/18/18 02:58 Albumin 2.9 g/dL (3.5-5.7) L 01/18/18 02:58 Albumin/Globulin Ratio 1.0 (1.1-2.2) L 01/18/18 02:58 - Microbiology Findings Microbiology Findings: Microbiology, Last 48 Hours 01/17/18 15:35 Sputum Culture - Preliminary Sputum - Clinical Findings Intake & Output: Intake & Output 01/18/18 01/19/18 01/19/18 23:59 07:59 15:59 Intake Total 350 / 350 370 / 370 Output Total 1200 / 1200 1475 / 1475 500 / 500 Balance -850 / -850 -1105 / -1105 -500 / -500 Weight 148.5 kg Consult Discharge Plan - Plan Referrals: Naveed Chicas, ROVING WINDER [Advanced Practice Nurse] - (Office will call patient at home with follow up appointment) Juan Abraham [Primary Care Provider] - (SENT WEB REQUEST ON 01-19-18 @ [phone])
--- NOTE | 2018-01-19 15:00 | Electrocardiograph Report ---
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
--- NOTE | 2018-01-19 15:37 | Electrocardiograph Report ---
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
[2018-01-19] MEDS ORDERED: Aminoglycoside Consult 1 EACH MC ONE (15:48)
[2018-01-19] MEDS: Aspirin 81 MG TAB.CHEW PO SCH (16:47)
[2018-01-19] MEDS ORDERED: Warfarin perPT PO PRN (18:00)
[2018-01-19] MEDS: Insulin DETEMIR 100 UNIT/ML X5UNITS SQ SCH (20:37)
[2018-01-20] MEDS: MetroNIDAZOLE 500 MG/100 ML 500 MG/100 ML BAG IVPB SCH ×3 (00:08→11:27)
[2018-01-20] MEDS: Cefepime HCl 2,000 MG in Water for inj. (sterile) 20 ML 20 ML IVP SCH ×2 (00:41→15:19)
[2018-01-20] MEDS: Ipratropium/Albuterol Neb 3 ML IH SCH ×4 (04:21→21:46)
--- NOTE | 2018-01-20 05:29 | Internal Med Progress Note ---
Hospitalist Progress Note - Encounter Date of Encounter: 01/19/18 Time of Encounter: 19:00 - Subjective Interval History: SUBJECTIVE: The patient feels progressively better. He is stronger. He started doing some ambulation. He does have mild cough but not wheezing. Denies resting dyspnea; on 4 L/min nasal cannula oxygen. CBC shows hemoglobin of 10.0. With normal WBC/platelet count. BMP is normal. OBJECTIVE: Skin: Free of rash and discoloration. ENMT: Oral/pharyngeal mucosa is normal in appearance. Eyes: Sclera is white. There is no discharge from eyes. Respiratory: Normal breath sounds; no crackles or wheezes. CV: Heart is regular; no gallop or murmur. GI: Abdomen is soft and not tender. There is no palpable mass or visceromegaly. Neuro: There is no focal deficits. ASSESSMENT AND PLAN: The patient was admitted by cardiology for treatment of STEMI; NSVT was noticed. She underwent cardiac catheterization; and nonobstructive thrombus was found in one of her coronary grafts. He is on Brilinta and aspirin. He is on Toprol-XL. Postobstructive pneumonia/COPD exacerbation. Pulmonary disease is consulted. The patient is good thing vancomycin/IV cefepime. We will continue nebulizer treatments with DuoNeb. The patient has underlying non-small cell cancer of right lung. He gets outpatient treatments, as scheduled by oncology. Type 2 diabetes mellitus. He is on diabetic diet and when necessary insulin Humalog. - Exam Vitals: Temp Pulse Resp BP Pulse Ox 98.6 F 85 20 112/65 93 01/20/18 04:47 01/20/18 04:47 01/20/18 04:47 01/20/18 04:47 01/20/18 04:47 Exam: xxx - Assessment and Plan (1) STEMI (ST elevation myocardial infarction) Current Visit: Yes Status: Acute (2) NSVT (nonsustained ventricular tachycardia) Current Visit: Yes Status: Acute (3) Postobstructive pneumonia Current Visit: Yes Status: Acute (4) Non-small cell cancer of right lung Current Visit: Yes Status: Chronic (5) Acute and chronic respiratory failure Current Visit: Yes Status: Acute (6) IDDM (insulin dependent diabetes mellitus) Current Visit: Yes Status: Chronic (7) Morbid obesity with BMI of 45.0-49.9, adult Current Visit: Yes Status: Chronic - Time Spent with Patient Total time spent is greater than 50% in coordination of care (as documented) at patient's floor/unit and/or counseling patient: 25 - 35 minutes Plan of Care Discussed with: patient Internal Medicine: Result - Labs CBC & Chem 7: 01/20/18 08:56 01/20/18 08:56 Labs: Short CBC 01/19/18 Range/Units 05:14 WBC 8.5 (4.3-11.1) K/mcL Hgb 10.0 L D (12.9-16.9) g/dL Hct 31.0 L (37.5-50.1) % Plt Count 308 (140-400) K/mcL Neutrophils # 7.1 (1.6-8.9) K/mcL BMP 01/19/18 05:14 Sodium 137 Potassium 4.1 Chloride 104 Carbon Dioxide 26 BUN 11 Creatinine 0.82 Glucose 254 H Calcium 9.6 - ABG Interpretation ABG results: ABG ABG pH 7.42 pH Units (7.32-7.45) 01/17/18 11:15 ABG pCO2 46 mmHg (35-45) H 01/17/18 11:15 ABG pO2 85 mmHg (85-104) 01/17/18 11:15 ABG O2 Saturation 96 % (95-98) 01/17/18 11:15 PT/INR, D-dimer PT 13.2 Seconds (9.4-12.1) H 01/17/18 20:25 Consult Discharge Plan - Plan Referrals: Naveed Chicas, GOLF COURSE EQUIPMENT OPERATOR [Advanced Practice Nurse] - (Office will call patient at home with follow up appointment) Juan Abraham [Primary Care Provider] - 01/26/18 10:00 am () (1) STEMI (ST elevation myocardial infarction) Qualifiers: Involved coronary artery: unspecified coronary artery Qualified Code(s): I21.3 - ST elevation (STEMI) myocardial infarction of unspecified site (5) Acute and chronic respiratory failure Qualifiers: Respiratory failure complication: hypoxia Qualified Code(s): J96.21 - Acute and chronic respiratory failure with hypoxia
[2018-01-20] MEDS: *HR* Heparin 5,000 UNIT/ML VIAL SQ SCH ×2 (05:52→18:20)
--- NOTE | 2018-01-20 08:49 | Pulmonology Progress Note ---
Date of Encounter: 01/20/18 Time of Encounter: 08:30 Assessment and Plan (1) Acute and chronic respiratory failure Current Visit: Yes Status: Acute Acute on chronic hypoxic respiratory failure secondary to chronic interstitial lung disease complicated by metastatic small cell lung cancer now with possible postobstructive pneumonia. Patient is slowly getting better with steroids as V/ Q mismatch is slowly getting back to his baseline. Patient V/Q mismatch is not getting better we will repeat chest imaging to make sure his pleural effusion is not worsening. Patient his symptoms slowly coming back to baseline patient might benefit from diuresis as tolerated. Qualifiers: Respiratory failure complication: hypoxia Qualified Code(s): J96.21 - Acute and chronic respiratory failure with hypoxia (2) STEMI (ST elevation myocardial infarction) Current Visit: Yes Status: Acute Patient had this ST elevation [place] due to obstructive coronary artery disease with a clot in his saphenous venous graft he was not stented. Patient had GP IIb - IIIa inhibitor he was transitioned to Brilinta then aspirin and plavix. 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 Discussed with this primary balloon dipper and oncologist agreed there will be no bronchoscopic intervention for now. Patient has to follow up with Dr. Ludwig for further discussion about management of his lung cancer. (4) Postobstructive pneumonia Current Visit: Yes Status: Acute Continue broad-spectrum antibiotics for now will stop vancomycin we will continue cefepime ad Flayl. On discharge he might be sent home on Levaquin for at least 7 days of total therapy. Sputum cultures reviewed To continue Cefepime flagyl for now , Vancomycin was stopped. (5) GEORGE treated with BiPAP Current Visit: Yes Status: Acute Patient is on BiPAP I ordered a new BiPAP machine to [facility] patient will be getting the New sleep apnea machine soon Subjective Principal diagnosis: STEMI Interval history: Patient is doing well better than yesterday breathing [place] after starting steroid therapy. Patient has some cough not much sputum production had a good night's sleep with BiPAP. Patient hematuria is lot better today patient denies any chest pain, chest tightness has some shortness of breath on exertion. 01/20 Patient has slightly blood tinged urine , he still shortness of breadth on exertion feeling lot better , denies any fever or chills , denies any chest pain or chest tightness denies any other constitutional symptoms. Objective PUL Vital signs: Last Vital Signs Temp 96.5 F L 01/20/18 07:04 Pulse 67 01/20/18 07:04 Resp 20 01/20/18 07:04 BP 136/75 01/20/18 07:04 Pulse Ox 100 01/20/18 07:04 Auscultation: bilateral: wheezes (minimal scattered wheezes ) Gastrointestinal: other (obese abdomen ) Results - Laboratory Findings CBC and BMP: 01/20/18 08:56 01/20/18 08:56 ABG ABG pH 7.42 pH Units (7.32-7.45) 01/17/18 11:15 ABG pCO2 46 mmHg (35-45) H 01/17/18 11:15 ABG pO2 85 mmHg (85-104) 01/17/18 11:15 ABG O2 Saturation 96 % (95-98) 01/17/18 11:15 PT/INR, D-dimer PT 13.2 Seconds (9.4-12.1) H 01/17/18 20:25 Abnormal lab findings: Abnormal lab results RBC 3.27 M/mcL (4.19-5.50) L 01/19/18 05:14 Hgb 10.0 g/dL (12.9-16.9) L D 01/19/18 05:14 Hct 31.0 % (37.5-50.1) L 01/19/18 05:14 RDW 16.1 % (11.5-14.5) H 01/19/18 05:14 MPV 9.3 fL (9.4-12.4) L 01/19/18 05:14 PT 13.2 Seconds (9.4-12.1) H 01/17/18 20:25 Heparin Anti-Xa, Unfract 0.76 IU/mL (0.30-0.70) H 01/16/18 21:01 ABG pCO2 46 mmHg (35-45) H 01/17/18 11:15 ABG HCO3 30 mEq/L (21-27) H 01/17/18 11:15 ABG Total CO2 32 mEq/L (20-26) H 01/17/18 11:15 ABG Base Excess 5 mEq/L (-2 to 3) H 01/17/18 11:15 Glucose 254 mg/dL (70-105) H 01/19/18 05:14 POC Glucose 290 mg/dL (70-99) H 01/19/18 16:35 Phosphorus 2.1 mg/dL (2.7-4.5) L 01/19/18 05:14 Troponin I 0.40 ng/mL (< 0.04) H* 01/16/18 21:01 Serum Total Protein 5.9 g/dL (6.4-8.9) L 01/18/18 02:58 Albumin 2.9 g/dL (3.5-5.7) L 01/18/18 02:58 Albumin/Globulin Ratio 1.0 (1.1-2.2) L 01/18/18 02:58 Vancomycin Trough 18 mcg/mL (5-10) H 01/19/18 20:43 - Microbiology Findings Microbiology Findings: Microbiology, Last 48 Hours 01/17/18 15:35 Sputum Culture - Preliminary Sputum - Clinical Findings Intake & Output: Intake & Output 01/19/18 01/20/18 01/20/18 23:59 07:59 15:59 Intake Total 340 / 340 570 / 570 Output Total 600 / 600 800 / 800 Balance -260 / -260 -230 / -230 Weight 144.5 kg Consult Discharge Plan - Plan Referrals: Naveed Chicas, TARIFF COUNSEL [Advanced Practice Nurse] - (Office will call patient at home with follow up appointment) Juan Abraham [Primary Care Provider] - 01/26/18 10:00 am ()
[2018-01-20] MEDS: Insulin LISPRO 300 UNITS/3 ML VIAL SQ SCH ×4 (08:52→20:27)
[2018-01-20] MEDS: predniSONE 20 MG TABLET PO SCH (08:56)
[2018-01-20] MEDS: Metoprolol XL (24 HR) Succ 50 MG TAB.ER.24H PO SCH (08:56)
[2018-01-20] MEDS: Aspirin 81 MG TAB.CHEW PO SCH (09:03)
[2018-01-20 09:41] LABS: Basophils # 0.1 K/mcL (0.0-0.2); Basophils % 0.7 %; Eosinophils # 0.1 K/mcL (0.0-0.6); Eosinophils % 0.7 %; Hemoglobin 11.5 g/dL (12.9-16.9); Immature Granulocytes % 1.1 % (0-4); Lymphocytes # 1.7 K/mcL (0.6-4.6); Lymphocytes % 14.9 %; Mean Corpuscular HGB Conc 31.9 g/dL (31.6-35.5); Mean Corpuscular Hemoglobin 30.7 pg (28.0-33.3); Mean Corpuscular Volume 96.3 fL (83.0-100.0); Mean Platelet Volume 8.8 fL (9.4-12.4); Monocytes # 1.2 K/mcL (0.0-1.3); Monocytes % 10.4 %; Neutrophils # 8.2 K/mcL (1.6-8.9); Platelet Count 419 K/mcL (140-400); Red Blood Count 3.74 M/mcL (4.19-5.50); Red Cell Distribution Width 16.5 % (11.5-14.5); Segmented Neutrophils % 72.2 %
[2018-01-20 09:47] LABS: BUN/Creatinine Ratio 14 (6-26); Blood Urea Nitrogen 12 mg/dL (8-23); Carbon Dioxide 27 mEq/L (23-29); Chloride 103 mEq/L (98-107); Glucose 227 mg/dL (70-105); Osmolality,Calculated 293 (280-300); Potassium 3.6 mEq/L (3.5-5.1); Sodium 138 mEq/L (136-145); eGFR For Non-African Americans > 60 (> 60)
--- NOTE | 2018-01-20 12:31 | Urology Progress Note ---
Date of Encounter: 01/20/18 Time of Encounter: 12:27 - Assessment and Plan (1) Gross hematuria Current Visit: Yes Status: Acute Assessment and plan: Patient is a 72-year-old male who presents with a history of gross hematuria. Patient has recently restarted anticoagulation, and urine is observed to be a pinkish orange tinged. Urine is transparent with no sediment or clots. I reviewed the outpatient plan to proceed with a voiding trial in 1-2 weeks in the urology office, and then to subsequently schedule a cystoscopy outpatient as needed. Patient and his verbalized understanding. I also encouraged the patient to call our office sooner if bleeding progresses after discharge. Progress Note Subjective: no new complaints Narrative: Patient seen and examined sitting upright in bed in no apparent distress. Patient restarted Plavix but has elected not to begin Coumadin. Patient's indwelling Camacho is draining transparent pink urine into bedside bag. Patient denies catheter discomfort or obstruction. Objective Initial Vital Signs Temp Pulse Resp BP Pulse Ox 98.2 F 100 22 108/60 92 01/16/18 18:40 01/16/18 18:40 01/16/18 18:40 01/16/18 18:40 01/16/18 18:40 - General physical appearance Present: well developed, no distress, no pain - Respiratory Present: normal expansion - Abdomen Present: soft, non tender - Genitourinary Present: other (transparent pink tinge urine ) - Integumentary Present: no rash, no abnormal pigmentation - Musculoskeletal Present: normal posture - Psychiatric Present: oriented to time, oriented to person, oriented to place, speech is normal, memory intact - Labs 01/20/18 08:56 01/20/18 08:56 Diabetes panel 01/20/18 Range/Units 08:56 Sodium 138 (136-145) mEq/L Potassium 3.6 (3.5-5.1) mEq/L Chloride 103 (98-107) mEq/L Carbon Dioxide 27 (23-29) mEq/L BUN 12 (8-23) mg/dL Creatinine 0.88 (0.70-1.30) mg/dL Glucose 227 H (70-105) mg/dL Calcium 10.0 (8.6-10.3) mg/dL Calcium panel 01/20/18 Range/Units 08:56 Calcium 10.0 (8.6-10.3) mg/dL Pituitary panel 01/20/18 Range/Units 08:56 Sodium 138 (136-145) mEq/L Potassium 3.6 (3.5-5.1) mEq/L Chloride 103 (98-107) mEq/L Carbon Dioxide 27 (23-29) mEq/L BUN 12 (8-23) mg/dL Creatinine 0.88 (0.70-1.30) mg/dL Glucose 227 H (70-105) mg/dL Calcium 10.0 (8.6-10.3) mg/dL Adrenal panel 01/20/18 Range/Units 08:56 Sodium 138 (136-145) mEq/L Potassium 3.6 (3.5-5.1) mEq/L Chloride 103 (98-107) mEq/L Carbon Dioxide 27 (23-29) mEq/L BUN 12 (8-23) mg/dL Creatinine 0.88 (0.70-1.30) mg/dL Glucose 227 H (70-105) mg/dL Calcium 10.0 (8.6-10.3) mg/dL Consult Discharge Plan - Plan Referrals: Naveed Chicas, RESEARCH COORDINATOR [Advanced Practice Nurse] - (Office will call patient at home with follow up appointment) Juan Abraham [Primary Care Provider] - 01/26/18 10:00 am ()
--- NOTE | 2018-01-20 13:18 | Cardiology Progress Note ---
Date of Encounter: 01/20/18 Time of Encounter: 11:20 Assessment and Plan (1) STEMI (ST elevation myocardial infarction) Current Visit: Yes Status: Acute S/p acute STEMI 01/16/18. He underwent emergent LHC that demonstrated severe 3V CAD. S/P CABG 3/3 patent bypass grafts. Significant Clot in the distal SVG to RPDA (likely culprit). Medical therapy was recommended. He was recommended to received 24 hours of aggrastat. TTE completed was technically sub-optimal due to poor windows. Definity was used. Grossly, LV function appears normal. Pt developed gross hematuria 01/17 overnight, Aggrastat stopped. Hematuria initially resolved and has now restarted. Urology following. Continue asa, plavix, and bb. No statin due intolerance/myalgias. D/c planning: PT/OT and social science teacher consulted to discuss short term ECF verses home with PT. Patient very weak. Patient and family says they will let the health care providers decide. He will be going home with carbajal catheter with plan for void trial in 1-2 weeks. Possible cystoscopy in the future. Currently on IV antibiotics for PNA. Hospitalist/pulmonology following and appreciate recommendations. 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 Qualifiers: Involved coronary artery: unspecified coronary artery Qualified Code(s): I21.3 - ST elevation (STEMI) myocardial infarction of unspecified site (2) NSVT (nonsustained ventricular tachycardia) Current Visit: Yes Status: Acute 18 beat run NSVT 01/17 AM. Replaced K and Mag. No recurrence of NSVT. Continue Toprol XL 100mg daily. (3) PAF (paroxysmal atrial fibrillation) Current Visit: Yes Status: Acute Episode of PAF during stay. Currently appears SR-ST, occasional PAF. Hx of A-Flutter s/p ablation in 2014. Toprol XL increased to 100mg daily (home dose). AVG HR 98. No recurrent VT or afib with RVR seen. [id number] 4 (Age, HTN, DM, CAD). Also in the setting of small cell lung cancer may have coagulable state. High CVA risk. Anticoagulation with coumadin was discussed in depth yesterday. Patient and daughter decline starting due to concerns for bleeding. Currently with hematuria. Hgb stable. Continue asa and plavix. Patient aware of increased risk of CVA. (4) Morbid obesity with BMI of 45.0-49.9, adult Current Visit: Yes Status: Chronic (5) Non-small cell cancer of right lung Current Visit: Yes Status: Chronic Management per pulmonoloy/oncology. Discussed with pulm. Plan to delay biopsy for 6 weeks given ACS. (6) Postobstructive pneumonia Current Visit: Yes Status: Acute Management per hospitalist/pulmonology. Will need rx for antibiotics and steroids from pulm at d/c. Discussion w patient/family: The assessment and plan as outlined above was discussed with the patient and/or family members who expressed understanding and agreement. All questions were answered. Thank you for involving us in the care of your patient. Please call with any questions. Subjective Principal diagnosis: STEMI Interval history: Mr. Flores just finished working with physical therapy. Reports that he is SOB after getting back in bed. States "I'm always SOB." Objective Vital Signs, Last 4 Hours Pulse Resp Pulse Ox 01/20/18 12:15 87 01/20/18 11:30 91 20 92 01/20/18 10:15 20 92 01/20/18 09:18 100 20 92 General: Conversant, No Apparent Distress HEENT: Atraumatic, Normocephaly, Mucus Membranes Moist Neck: No JVD, Normal carotid pulses Cardiac: Reg Rate and Rhythm, Normal S1 and S2, No Murmur Lungs: Normal Breath Sounds, No Wheeze, Rales, Rhonchi Neuro: Alert and responsive, No focal deficits noted Abdomen: Soft, Non-Tender Skin: Other (Redness noted in BLE. ) Musculoskeletal: No Chest Wall Tenderness Extremities: No Clubbing, No Cyanosis, Normal Pulses, Other (Trace ankle edema) Other: Blood noted in urine. Results 01/20/18 08:56 01/20/18 08:56 Lab Results 01/20/18 01/20/18 08:56 08:56 WBC 11.4 H Hgb 11.5 L D Hct 36.0 L Plt Count 419 H Sodium 138 Potassium 3.6 Chloride 103 Carbon Dioxide 27 BUN 12 Creatinine 0.88 Glucose 227 H Calcium 10.0 - Imaging and Cardiology Echo: report reviewed Cardiac cath: report reviewed - EKG Interpretation EKG results cardiology: personally reviewed Consult Discharge Plan - Plan Referrals: Naveed Chicas, OUTBOUND SUPERVISOR [Advanced Practice Nurse] - (Office will call patient at home with follow up appointment) Juan Abraham [Primary Care Provider] - 01/26/18 10:00 am ()
--- NOTE | 2018-01-20 15:27 | Event Note ---
Date of Encounter: 01/20/18 Time of Encounter: 15:00 - Cardiology Event Note Discussed with Dr James from pulmonology regarding potential risk of lung Ca bleeding; there is a concern for potential bleeding into bronchus which can be difficult to control due to vicinity of tumor to bronchus. Pt had no further afib event. Discussed with pt and family who initially refuses anticoagulation, will keep pt on ASA and plavix with event monitor for further Afib burden as outpatient, f/u oncologist and urologist. Pt and family understand and accept the higher VTE and stroke risk of current regimen. Adjustment of anti-platelet and anticoagulation plan will be based on further outpatient evaluation.
--- NOTE | 2018-01-20 15:33 | Electrocardiograph Report ---
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
[2018-01-20] MEDS: levoFLOXacin 500 MG TABLET PO SCH (16:19)
[2018-01-20] MEDS: Insulin DETEMIR 100 UNIT/ML X5UNITS SQ SCH (20:27)
--- NOTE | 2018-01-21 03:59 | Internal Med Progress Note ---
Hospitalist Progress Note - Encounter Date of Encounter: 01/20/18 Time of Encounter: 19:00 - Subjective Interval History: SUBJECTIVE: The patient feels pretty good. I saw him ambulating with her walker; with help from physical therapy. He has no resting dyspnea; on 3 L/min nasal cannula oxygen (like at home). He has mild cough but not wheezing. Denies chest pain. Denies abdominal pain, nausea and vomiting. He makes good amounts of urine. OBJECTIVE: Skin: Free of rash and discoloration. ENMT: Oral/pharyngeal mucosa is normal in appearance. Eyes: Sclera is white. There is no discharge from eyes. Respiratory: Normal breath sounds; no crackles or wheezes. CV: Heart is regular; no gallop or murmur. GI: Abdomen is soft and not tender. There is no palpable mass or visceromegaly. Neuro: There is no focal deficits. ASSESSMENT AND PLAN: The patient was admitted by cardiology for treatment of STEMI; NSVT was noticed. She underwent cardiac catheterization; and nonobstructive thrombus was found in one of his coronary grafts. He is on Brilinta and aspirin. He is on Toprol-XL. Increase to 100 mg by mouth daily today, as he her that short run of PAF. Postobstructive pneumonia/COPD exacerbation. Pulmonary disease is consulted. We lost IV access. This is why we switched him to by mouth Levaquin. We will continue nebulizer treatments with DuoNeb. The patient has underlying non-small cell cancer of right lung. He gets outpatient treatments, as scheduled by oncology. Type 2 diabetes mellitus. He is on diabetic diet and when necessary insulin Humalog. Disposition: That the day of discharge is tomorrow morning. - Exam Vitals: Temp Pulse Resp BP Pulse Ox 97.8 F 87 20 141/89 95 01/20/18 23:59 01/20/18 23:59 01/20/18 23:59 01/20/18 23:59 01/20/18 23:59 Exam: xx - Assessment and Plan (1) STEMI (ST elevation myocardial infarction) Current Visit: Yes Status: Acute (2) NSVT (nonsustained ventricular tachycardia) Current Visit: Yes Status: Acute (3) Postobstructive pneumonia Current Visit: Yes Status: Acute (4) Non-small cell cancer of right lung Current Visit: Yes Status: Chronic (5) Acute and chronic respiratory failure Current Visit: Yes Status: Acute (6) IDDM (insulin dependent diabetes mellitus) Current Visit: Yes Status: Chronic (7) Morbid obesity with BMI of 45.0-49.9, adult Current Visit: Yes Status: Chronic - Time Spent with Patient Total time spent is greater than 50% in coordination of care (as documented) at patient's floor/unit and/or counseling patient: 25 - 35 minutes Plan of Care Discussed with: patient Internal Medicine: Result - Labs CBC & Chem 7: 01/20/18 08:56 01/20/18 08:56 Labs: Short CBC 01/20/18 Range/Units 08:56 WBC 11.4 H (4.3-11.1) K/mcL Hgb 11.5 L D (12.9-16.9) g/dL Hct 36.0 L (37.5-50.1) % Plt Count 419 H (140-400) K/mcL Neutrophils # 8.2 (1.6-8.9) K/mcL BMP 01/20/18 08:56 Sodium 138 Potassium 3.6 Chloride 103 Carbon Dioxide 27 BUN 12 Creatinine 0.88 Glucose 227 H Calcium 10.0 - ABG Interpretation ABG results: ABG ABG pH 7.42 pH Units (7.32-7.45) 01/17/18 11:15 ABG pCO2 46 mmHg (35-45) H 01/17/18 11:15 ABG pO2 85 mmHg (85-104) 01/17/18 11:15 ABG O2 Saturation 96 % (95-98) 01/17/18 11:15 PT/INR, D-dimer PT 13.2 Seconds (9.4-12.1) H 01/17/18 20:25 Consult Discharge Plan - Plan Referrals: Naveed Chicas, WAREHOUSE PRODUCTION WORKER [Advanced Practice Nurse] - (Office will call patient at home with follow up appointment) Juan Abraham [Primary Care Provider] - 01/26/18 10:00 am () (1) STEMI (ST elevation myocardial infarction) Qualifiers: Involved coronary artery: unspecified coronary artery Qualified Code(s): I21.3 - ST elevation (STEMI) myocardial infarction of unspecified site (5) Acute and chronic respiratory failure Qualifiers: Respiratory failure complication: hypoxia Qualified Code(s): J96.21 - Acute and chronic respiratory failure with hypoxia
[2018-01-21] MEDS: Ipratropium/Albuterol Neb 3 ML IH SCH ×3 (04:26→15:04)
[2018-01-21] MEDS: *HR* Heparin 5,000 UNIT/ML VIAL SQ SCH (05:40)
[2018-01-21 07:21] VITALS: BP 146/89
--- NOTE | 2018-01-21 08:10 | Electrocardiograph Report ---
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
--- NOTE | 2018-01-21 08:13 | Electrocardiograph Report ---
[address] [place], [place] [address] Test Date: 2018-01-16 Pat Name: Marichuy Flores Department: 112 Room: 2N06 Gender: M Child Monitor: : 1945 Requested By: Uli Vegas Order Number: [id number] Reading MD: Kyler Minor Measurements Intervals [place] Rate: 78 P: 72 NE: 238 QRS: 146 QRSD: 163 T: -24 QT: 417 QTc: 451 Interpretive Statements SINUS RHYTHM WITH FIRST DEGREE AV BLOCK WITH OCCASIONAL SUPRAVENTRICULAR PREMATURE COMPLEXES INDETERMINATE AXIS RIGHT BUNDLE BRANCH BLOCK INFERIOR MYOCARDIAL INFARCTION, AGE UNDETERMINED Electronically Signed On 01-21-2018 8:12:13 EDT by Kyler Minor
[2018-01-21] MEDS: Insulin LISPRO 300 UNITS/3 ML VIAL SQ SCH ×2 (08:18→12:12)
[2018-01-21] MEDS: Metoprolol XL (24 HR) Succ 50 MG TAB.ER.24H PO SCH (08:21)
[2018-01-21] MEDS: Aspirin 81 MG TAB.CHEW PO SCH (08:21)
[2018-01-21] MEDS: predniSONE 20 MG TABLET PO SCH (08:21)
--- NOTE | 2018-01-21 10:53 | Urology Progress Note ---
Date of Encounter: 01/21/18 Time of Encounter: 10:52 - Assessment and Plan (1) Gross hematuria Current Visit: Yes Status: Acute Assessment and plan: 72-year-old male gross hematuria after cardiac catheterization. Continue catheter for now. He can return in 1 week for a voiding trial. I provided catheter instructions with him and his daughter. I provided them advice as to things to watch out for regarding his bleeding. Progress Note Narrative: Doing well today. Urine is clear to very light pink with minimal sediment. We discussed the catheter and removal of that at a later date. Objective Initial Vital Signs Temp Pulse Resp BP Pulse Ox 98.2 F 100 22 108/60 92 01/16/18 18:40 01/16/18 18:40 01/16/18 18:40 01/16/18 18:40 01/16/18 18:40 - General physical appearance Present: well developed, well nourished, no distress, no pain - Genitourinary Urine Appearance: Present: Clear - Labs 01/20/18 08:56 01/20/18 08:56 Consult Discharge Plan - Plan Referrals: Naveed Chicas, HARMONIC ANALYST [Advanced Practice Nurse] - (Office will call patient at home with follow up appointment) Juan Abraham [Primary Care Provider] - 01/26/18 10:00 am ()
[2018-01-21] MEDS: levoFLOXacin 500 MG TABLET PO SCH (12:12)
--- NOTE | 2018-01-21 13:47 | Discharge Summary ---
- NOTES TO OUTPATIENT PROVIDER Notes to Outpatient Provider: Follow up with urology ouptatient. Follow up with cardiology outpatient. Orders not resulted at time of discharge: Pending orders 01/16/18 21:01 Culture,Blood [BC] Stat Date of Encounter: 01/21/18 Time of Encounter: 13:44 - Discharge Diagnosis (1) STEMI (ST elevation myocardial infarction) Priority: Primary Status: Acute Comments: Admitted with acute STEMI. Qualifiers: Involved coronary artery: unspecified coronary artery Qualified Code(s): I21.3 - ST elevation (STEMI) myocardial infarction of unspecified site (2) Non-small cell cancer of right lung Priority: Secondary Status: Chronic Comments: Known lung ca. (3) Postobstructive pneumonia Priority: Secondary Status: Acute Comments: On ATB and steroids. (4) IDDM (insulin dependent diabetes mellitus) Priority: Secondary Status: Chronic Comments: Known DM (5) PAF (paroxysmal atrial fibrillation) Priority: Secondary Status: Acute Comments: Had PAF during admission. (6) Gross hematuria Priority: Secondary Status: Acute Comments: Carbajal catheter in place. Urine improving. Hemoglobin stable. (7) NSVT (nonsustained ventricular tachycardia) Priority: Secondary Status: Resolved Comments: Had episode of NSVT, inpatient. BB increased. NO recurrence. - Hospital Course Hospital course: Mr. Flores is a 72 year old male who was admitted to [facility] with acute STEMI. Patient underwent LHC with no intervention. Thrombus was noted in SVG graft and patient was placed on aggrastat for 24 hours. Patient is currently on asa, plavix. Denies chest pain. Patient developed hematuria and urology was consulted. Currently with carbajal catheter. Urology recommends continuing with carbajal catheter and follow up in urology office in one week. Patient also has known lung cancer and follows with oncology outpatient. Patient also being treated for pneumonia while inpatient. Discussed with hospitalist, who recommended continuin levaquin for 5 more days. Also recommended prednisone 20mg for 5 more days. During hospital stay, developed non-sustained VT. BB was increased and no recurrence was noted. Also had paroxysmal atrial fibrillation this admission. NO recurrence previous 48 hours of a.fib. [id number] score is elevated and patient was recommended for anticoagulation. At this point, with hematuria, lung cancer, patient and family have decided against director long term care anticoagulation. Patient and family educated and aware of increased risk of CVA/ embolic event. TTE was performed and LVEF was though to be grossly normal, poor echocardiogram study. Patient was recommended for rehab per PT/OT. Patient is being prepped for discharge to inpatient rehab facility at [facility]. All questions answered. Patient needs follow up with urology, oncology. Cardiology will arrange outpatient cardiology appointment. - Time Spent with Patient Total time spent providing and/or coordinating discharge services: Less than 30 minutes - Discharge Medications Home Medications: Nitroglycerin [Nitrostat] 0.4 mg SL PRN PRN 03/24/15 [History] Ergocalciferol (VITAMIN D2) [Vitamin D2 (50,000 UNIT)] 50,000 unit PO QWEEK [History] Aspirin 81 mg PO DAILY 09/22/15 [History] Cyanocobalamin (B-12) [Vitamin B12] 1,000 mcg IM QMONTH 07/22/16 [History] Insulin Lispro Protamin/Lispro [Humalog Mix 75-25 Vial] 12 unit SQ QAM 07/22/16 [History] Insulin Lispro Protamin/Lispro [Humalog Mix 75-25 Vial] 12 unit SQ QPM 07/22/16 [History] Ipratropium/Albuterol Neb [Duoneb] 3 ml IH Q6HR PRN 07/22/16 [History] Saxagliptin HCl [Onglyza] 2.5 mg PO DAILY 07/22/16 [History] Insulin Glargine,Hum.rec.anlog [Lantus Solostar] 56 unit SQ QAM 01/11/17 [ History] Azelastine 0.1% Nasal [place] [Astelin] 1 puff NS BID 11/15/17 [History] Oxycodone HCl/Acetaminophen [Percocet 5-325 mg Tablet] 1 each PO Q6HR PRN [History] Albuterol Sulfate [Ventolin Hfa] 2 puff IH Q6H PRN 01/17/18 [History] Levothyroxine [Synthroid] 150 mcg PO DAILY #30 tablet 01/17/18 [Rx] Nivolumab [Opdivo] 40 mg IV QMONTH 01/17/18 [History] Olopatadine HCl [Patanase] 30.5 gm NS BID 01/17/18 [History] Clopidogrel [Plavix] 75 mg PO DAILY tablet 01/21/18 [Rx] Metoprolol XL (24 HR) Succ [Toprol Xl] 100 mg PO DAILY tab.er.24h 01/21/18 [Rx] levoFLOXacin [Levaquin] 500 mg PO Q24H #5 tablet 01/21/18 [Rx] predniSONE [PredniSONE] 20 mg PO DAILY 5 Days tablet 01/21/18 [Rx] Allergies/Adverse Reactions: 3 Allergy/AdvReac Type Severity Reaction Status Date / Time Amoxicillin Allergy Hives Verified 01/16/18 18:39 adhesive AdvReac Rash Verified 01/16/18 18:39 Date of admission: 01/16/18 19:06 Primary care physician: Juan Abraham Consults: 01/16/18 20:37 Consult to Cardiac Rehabilitation-Phase1 [CONS] Routine Comment: Reason for Consult: AMI Call Completed: Yes Consult to Nurse Navigator [CONS] Routine Comment: 01/16/18 20:43 Consult to Pulmonology [CONS] Routine Consulting Provider: [facility] Reason for Consult: ICU management and bronchoscopy Call Completed: No 01/16/18 20:54 Consult to Hospitalist [CONS] Routine Consulting Provider: Hospitalist Ja Reason for Consult: Pneumonia, PR, Lung CA Time Notified: 20:58 Call Completed: Yes 01/18/18 11:13 Consult to Oncology [CONS] Routine Consulting Provider: [facility] Reason for Consult: squamous cell carcinoma of the lung, currently following with Dr. Ludwig Call Completed: Yes 01/18/18 14:02 Consult to Urology [CONS] Routine Consulting Provider: [facility] Reason for Consult: hematuria Call Completed: Yes 01/19/18 10:03 Consult to Occupational Therapy [CONS] Routine Comment: Evaluate, develop and implement POC Reason for Consult: discharge planning Does patient have active BEDREST order?: No Is patient medically & hemodynamically stable?: Yes Consult to Physical Therapy [CONS] Routine Comment: Evaluate, develop and implement POC Reason for Consult: discharge planning Does patient have active BEDREST order?: No Is patient medically & hemodynamically stable?: Yes Discharging clinician: Luzmaria Eisenberg Anticipated date of discharge: 01/21/18 Physical Examination Vital Signs, Last 4 Hours Resp Pulse Ox 01/21/18 11:13 16 95 Vital Signs Temperature 98.2 F 01/16/18 18:40 Pulse Rate 100 01/16/18 18:40 Respiratory Rate 22 01/16/18 18:40 Blood Pressure 108/60 01/16/18 18:40 O2 Sat by Pulse Oximetry 92 01/16/18 18:40 Temperature 97.5 F L 01/21/18 08:20 Pulse Rate 65 01/21/18 08:20 Respiratory Rate 16 01/21/18 11:13 Blood Pressure 146/89 01/21/18 08:20 O2 Sat by Pulse Oximetry 95 01/21/18 11:13 Oxygen Delivery Oxygen Delivery Nasal Cannula General: Conversant, No Apparent Distress HEENT: Atraumatic, Normocephaly, Mucus Membranes Moist Neck: No JVD, Normal carotid pulses Cardiac: Reg Rate and Rhythm, Normal S1 and S2, No Murmur Lungs: Other (Lung sounds diminished throughout. ) Neuro: Alert and responsive, No focal deficits noted Abdomen: Soft, Non-Tender Skin: No rashes noted on visualized skin Musculoskeletal: No Chest Wall Tenderness Extremities: No Clubbing, No Cyanosis, Normal Pulses, Other (Mild bilateral lower extremity edema noted. Bilateral lower extremities discolored. ) - Patient Status Disposition: Transfer Inpatient Rehab Fac Condition: Fair Functional capacity at discharge: wheelchair bound Overall status at discharge: patient is progressing back to baseline - Discharge Instructions Follow Up With: Naveed Chicas, [employer] [Advanced Practice Nurse] - (Office will call patient at home with follow up appointment) Juan Abraham [Primary Care Provider] - 01/26/18 10:00 am () Additional Instructions: RISK FACTORS: STOP SMOKING: If you smoke, STOP. Smoking or tobacco use significantly increases your risk of heart disease because nicotine causes the arteries to narrow or constrict. It also causes fats to stick to the artery. Your chances of having a heart attack are greatly increased if you continue to smoke. For more information, call the education line for smoking cessation 6-843-HEMNWYS EAT A LOW FAT/CHOLESTEROL/SODIUM DIET: This diet may help reduce your chances of having a heart attack. LIFTING: Avoid lifting anything more than 10 pounds for 5-7 days Prior to straining, laughing, sneezing and/or coughing, apply manual pressure directly over insertion site. ACTIVITY: You may walk or climb stairs as tolerated You can resume sexual activity as tolerated In general, you are encouraged to engage in a minimum of 30 minutes or more of moderate intensity physical activity, such as brisk walking, daily or at least 3 -4 times weekly BATHING Do not submerge the site into water (bath tub, hot tub, swimming pool) for 1 week. This can be a source for infection into the blood stream. You may shower after 24 hours SITE CARE: After 24 hours, you may remove the dressing and leave the site open to air. Keep the site clean and dry. Clean gently and pat dry. You can expect bruising and tenderness that gradually resolve within a week or two. Return to work as instructed per your physician Resume driving as instructed per physician Keep all scheduled follow up appointments Resume medications as instructed IMPORTANT: If prescribed a Platelet Aggregation Inhibitor such as, Plavix, Brilinta or Effient: Duration of therapy is minimum one year These medications are often used in combination with Aspirin in prevention of future heart attacks Never discontinue unless consult with your Dispersion Mixer STROKE (CVA) Risk factors for a stroke are: Age, cigarette smoking, diabetes, excessive alcohol consumption, family history, high blood pressure, overweight, physical inactivity, prior stroke, heart attack, diagnosis of carotid artery stenosis or other artery disease. Warning signs: Sudden numbness or weakness of the face, arm or leg; especially on one side of the body, sudden confusion, trouble speaking or understanding, sudden trouble seeing in one or both eyes, sudden trouble walking, dizziness, loss of balance or coordination, sudden severe headache with no cause. Call 911 or go to the Emergency Room. CONGESTIVE HEART FAILURE: If you have been diagnosed with Congestive Heart Failure (CHF) and your symptoms return, make an appointment with your physician Weigh yourself daily. Notify your physician if you have a weight gain of two or more pounds in one day or five or more pounds in one week. If you experience any difficulty breathing, please call 911 BLEEDING: Although the risk of bleeding is minimal, it can happen. If you have any bleeding from the site, apply firm pressure above the puncture site for 10-15 minutes. If the bleeding does not stop, continue manual pressure and call 911 Contact your physician if: You develop a fever greater than 101 degrees Fahrenheit Your site becomes reddened or has any drainage You have an increase in pain or burning at the site or if a large knot forms at the site. If you experience chest pain, shortness of breath, dizziness, or extreme tiredness, stop the activity and rest. Please notify your physicians office if you experience any of these symptoms and they are not relieved by rest please call 911! - Diet and Activity Activity: as per physical therapy Diet: diabetic diet, low fat, low cholesterol, low salt diet
--- NOTE | 2018-01-21 14:03 | Physician Discharge Referral ---
ExtendedCare Referral Info Transfer To: [facility] rehab Provider in Charge after Transfer: PCP Institutional Level of Care: Skilled - Diagnosis (1) STEMI (ST elevation myocardial infarction) Priority: Primary Status: Acute (2) Non-small cell cancer of right lung Priority: Secondary Status: Chronic (3) Postobstructive pneumonia Priority: Secondary Status: Acute (4) IDDM (insulin dependent diabetes mellitus) Priority: Secondary Status: Chronic (5) PAF (paroxysmal atrial fibrillation) Priority: Secondary Status: Acute (6) Gross hematuria Priority: Secondary Status: Acute (7) NSVT (nonsustained ventricular tachycardia) Status: Resolved Expected Duration of Placement: per physical therapy Prognosis: Fair Aware of Diagnosis: Patient, Family Aware of Prognosis: Patient, Family - Transfer Medications Home Medications: Nitroglycerin [Nitrostat] 0.4 mg SL PRN PRN 03/24/15 [History] Ergocalciferol (VITAMIN D2) [Vitamin D2 (50,000 UNIT)] 50,000 unit PO QWEEK [History] Aspirin 81 mg PO DAILY 09/22/15 [History] Cyanocobalamin (B-12) [Vitamin B12] 1,000 mcg IM QMONTH 07/22/16 [History] Insulin Lispro Protamin/Lispro [Humalog Mix 75-25 Vial] 12 unit SQ QAM 07/22/16 [History] Insulin Lispro Protamin/Lispro [Humalog Mix 75-25 Vial] 12 unit SQ QPM 07/22/16 [History] Ipratropium/Albuterol Neb [Duoneb] 3 ml IH Q6HR PRN 07/22/16 [History] Saxagliptin HCl [Onglyza] 2.5 mg PO DAILY 07/22/16 [History] Insulin Glargine,Hum.rec.anlog [Lantus Solostar] 56 unit SQ QAM 01/11/17 [ History] Azelastine 0.1% Nasal [place] [Astelin] 1 puff NS BID 11/15/17 [History] Oxycodone HCl/Acetaminophen [Percocet 5-325 mg Tablet] 1 each PO Q6HR PRN [History] Albuterol Sulfate [Ventolin Hfa] 2 puff IH Q6H PRN 01/17/18 [History] Levothyroxine [Synthroid] 150 mcg PO DAILY #30 tablet 01/17/18 [Rx] Nivolumab [Opdivo] 40 mg IV QMONTH 01/17/18 [History] Olopatadine HCl [Patanase] 30.5 gm NS BID 01/17/18 [History] Clopidogrel [Plavix] 75 mg PO DAILY tablet 01/21/18 [Rx] Metoprolol XL (24 HR) Succ [Toprol Xl] 100 mg PO DAILY tab.er.24h 01/21/18 [Rx] levoFLOXacin [Levaquin] 500 mg PO Q24H #5 tablet 01/21/18 [Rx] predniSONE [PredniSONE] 20 mg PO DAILY 5 Days tablet 01/21/18 [Rx] Allergies/Adverse Reactions: 3 Allergy/AdvReac Type Severity Reaction Status Date / Time Amoxicillin Allergy Hives Verified 01/16/18 18:39 adhesive AdvReac Rash Verified 01/16/18 18:39 - Respiratory Orders Oxygen / L per min (4LPM), Other (Home CPAP at night and during naps) Smoking Cessation: Smoking cessation has been advised. For more information, call the [place] Tobacco Quit Line at 0-103-TCKW-NOW. - Advance Directives Living Will: No Power of Spinning Doffer: No Code Status: Full Code - Mobility Orders Chair, Other (2 assist.) - Rehabiliation Orders Rehab Potential: Fair Rehab Orders: Evaluation for Physical Therapy, Evaluation for Occupational Therapy - Treatments Skin tear care topically daily PRN per policy - Diet Orders No Added Salt (CURT), Cardiac (Diabetic diet.) CERTIFICATION: I certify that the transfer of the above named patient to an Extended Care Facility is necessary for the continuing treatment of the diagnosis listed. The above information is true and accurate reflection of patient's current condition. Confidential - Redisclosure prohibited without a patient's written consent.
== END 2018-01-21 15:49 | DRG 280 ==
LOC: EMEROOARM 18:38 → SUATTDRO 19:06 → ICNU 19:06 → 2NNU 01-18 15:52
PROVIDERS: ADMIT Internal Medicine Cardiovascular Disease; ATTEND Internal Medicine

== ENCOUNTER 2018-02-15 04:16 | Inpatient (IN) ==
[2018-02-15] MEDS ORDERED: D5% in Water 1,000 ML IVC ONE (04:33)
[2018-02-15] MEDS ORDERED: *HR* Dextrose 50 % in Water (Syg) 50 ML SYRINGE ONE (04:33)
[2018-02-15] MEDS: D5% in 0.9% NACL 1,000 ML IVC SCH ×2 (04:45→19:45)
[2018-02-15] MEDS ORDERED: *HR* Dextrose 50 % in Water (Syg) 50 ML SYRINGE IVP ONE ×3 (04:47→10:30)
--- NOTE | 2018-02-15 04:55 | Emergency Department Note ---
Disposition Clinical Impression: Hypoglycemia, Sepsis due to pneumonia Altered mental status Qualifiers: Altered mental status type: unspecified Qualified Code(s): R41.82 - Altered mental status, unspecified Hypothermia Qualifiers: Encounter type: initial encounter Qualified Code(s): T68.XXXA - Hypothermia, initial encounter Leukocytosis Qualifiers: Leukocytosis type: unspecified Qualified Code(s): D72.829 - Elevated white blood cell count, unspecified Disposition: Still a Patient Condition: Serious Referrals: Juan Abraham [Primary Care Provider] - Forms: ED Satisfaction Letter Altered Mental Status HPI - General Chief Complaint: ED Altered Mental Status Stated Complaint: hypoglycemia Time Seen by Provider: 02/15/18 04:27 Source: family, EMS Nursing Notes Reviewed: Yes Vital Signs Reviewed: Yes - History of Present Illness HPI Narrative: 72-year-old male presents to the emergency department by EMS for altered mental status. Family reports that yesterday during the day his blood sugar was running high in the 500s and 600s. He was more confused due to the high blood sugar. They talked to his primary care provider and increased his insulin dosages and have been giving him insulin every 4 hours. Tonight before bed his blood sugar dropped down into the 80s and then later dropped down into the 60s and then into the 40s. He received D50 per EMS prior to arrival here and they reported his blood sugar after the D50 was above 200. He did not wake up much with this. He also received Narcan 4 mg and did seem to have some improvement for a short time but is now less responsive again. MD complaint: altered mental status, decreased responsiveness Onset (ago): hour(s) Timing confirmed by: family member Consistency of Symptoms: waxing and waning Context: diabetes Treatments prior to arrival: glucose, IV fluid, oxygen, other (Narcan) - Related Data Home Medications Medication Instructions Recorded Confirmed Nitroglycerin [Nitrostat] 0.4 mg SL PRN PRN 03/24/15 01/17/18 Ergocalciferol (VITAMIN D2) 50,000 unit PO QWEEK 05/26/15 01/17/18 [Vitamin D2 (50,000 UNIT)] Aspirin 81 mg PO DAILY 09/22/15 01/17/18 Cyanocobalamin (B-12) [Vitamin B12] 1,000 mcg IM QMONTH 07/22/16 01/17/18 Insulin Lispro Protamin/Lispro 12 unit SQ QAM 07/22/16 01/17/18 [Humalog Mix 75-25 Vial] Insulin Lispro Protamin/Lispro 12 unit SQ QPM 07/22/16 01/17/18 [Humalog Mix 75-25 Vial] Ipratropium/Albuterol Neb [Duoneb] 3 ml IH Q6HR PRN 07/22/16 01/17/18 Saxagliptin HCl [Onglyza] 2.5 mg PO DAILY 07/22/16 01/17/18 Azelastine 0.1% Nasal [place] 1 puff NS BID 11/15/17 01/17/18 [Astelin] Oxycodone HCl/Acetaminophen 1 each PO Q6HR PRN 01/16/18 01/17/18 [Percocet 5-325 mg Tablet] Albuterol Sulfate [Ventolin Hfa] 2 puff IH Q6H PRN 01/17/18 01/17/18 Nivolumab [Opdivo] 40 mg IV QMONTH 01/17/18 01/17/18 Olopatadine HCl [Patanase] 30.5 gm NS BID 01/17/18 01/17/18 Metoprolol XL (24 HR) Succ [Toprol 200 mg PO DAILY 01/22/18 01/22/18 Xl] Previous Rx's Medication Instructions Recorded Levothyroxine [Synthroid] 150 mcg PO DAILY #30 tablet 01/17/18 Clopidogrel [Plavix] 75 mg PO DAILY tablet 01/21/18 Bumetanide [Bumex] 2 mg PO DAILY #0 02/10/18 Insulin Glargine,Hum.rec.anlog 52 unit SQ QAM #0 02/10/18 [Lantus Solostar] Isosorbide MONOnitrate (24 HR) 60 mg PO DAILY #30 tab.er.24h 02/10/18 [Imdur] Allergies Allergy/AdvReac Type Severity Reaction Status Date / Time Amoxicillin Allergy Hives Verified 01/16/18 18:39 adhesive AdvReac Rash Verified 01/16/18 18:39 Limitations: ROS unobtainable due to patients medical condition Past Medical History - Past Medical History Medical history: Reports: cancer, coronary artery disease, DVT, diabetes, hyperlipidemia, hypertension, migraine, myocardial infarction, other Surgical history: Reports: cataract, coronary bypass (CABG), orthopedic, other, other Psychiatric history: Reports: no psych history - Social History Smoking Status: Former smoker Smokeless Tobacco Status: No Alcohol use: Reports: none, recent Drug use: Reports: none Physical Exam - General Limitations: altered mental status General appearance: lethargic, obtunded - Head Head exam: atraumatic, normocephalic - Eye Eye exam: Present: normal appearance, PERRL. Absent: scleral icterus, conjunctival injection - ENT ENT exam: mucous membranes moist - Neck Neck exam: Present: trachea midline - Chest Chest inspection: Present: normal inspection, symmetric chest wall rise - Respiratory Respiratory exam: Present: normal lung sounds bilaterally. Absent: respiratory distress, wheezes - Cardiovascular Cardiovascular exam: Present: regular rate, normal rhythm - Abdominal Exam Abdominal exam: Present: soft, normal bowel sounds. Absent: rigidity - Extremities Exam Extremities exam: Present: pedal edema, other (Chronic ischemic skin changes of lower extremities bilaterally.) - Neurological Exam Neurological exam: Present: other (Patient partially opens eyes with a sternal rub.) - Skin Skin exam: Present: dry, other (Skin is pale and cool to touch.). Absent: cyanosis, diaphoresis Course Course Narrative: 72-year-old male presented to the emergency department for altered mental status. Family reports he was confused and altered some yesterday his blood sugars were running very high. They increased his insulin and tonight he became hypoglycemic and unresponsive. No significant improvement after receiving D50 IV. He also received Narcan per EMS and they felt he had a little results from this but only briefly. Here in the emergency Department patient is unresponsive but with normal vital signs. Found to be hypothermic. Appears to have a UTI with a marked leukocytosis and is likely septic from the UTI and treated bleeding to the altered mental status. At shift change patient is signed out to the oncoming dayshift physician, Dr. Wyatt. Vital Signs Temperature 95.1 F L 02/15/18 04:21 Pulse Rate 68 02/15/18 04:21 Respiratory Rate 18 02/15/18 04:21 Blood Pressure 153/76 02/15/18 04:21 O2 Sat by Pulse Oximetry 95 02/15/18 04:21 Temperature 95.1 F L 02/15/18 04:21 Pulse Rate 59 02/15/18 06:23 Respiratory Rate 17 02/15/18 06:23 Blood Pressure 161/92 02/15/18 06:23 O2 Sat by Pulse Oximetry 100 02/15/18 06:23 Oxygen Delivery Oxygen Delivery Oximizer Altered Mental Status - Lab Data Result diagrams: 02/15/18 06:10 02/15/18 06:10 Lab Results 02/15/18 02/15/18 02/15/18 Range/Units 05:18 06:10 06:10 WBC 19.6 H (4.3-11.1) K/mcL RBC 4.00 L (4.19-5.50) M/mcL Hgb 12.0 L (12.9-16.9) g/dL Hct 38.3 (37.5-50.1) % MCV 95.8 (83.0-100.0) fL MCH 30.0 (28.0-33.3) pg MCHC 31.3 L (31.6-35.5) g/dL RDW 15.5 H (11.5-14.5) % Plt Count 345 (140-400) K/mcL MPV 9.4 (9.4-12.4) fL Immature Gran % 2.8 (0-4) % Seg Neutrophils % 84.1 % Lymphocytes % 3.9 % Monocytes % 8.8 % Eosinophils % 0.0 % Basophils % 0.4 % Neutrophils # 16.5 H (1.6-8.9) K/mcL Lymphocytes # 0.8 (0.6-4.6) K/mcL Monocytes # 1.7 H (0.0-1.3) K/mcL Eosinophils # 0.0 (0.0-0.6) K/mcL Basophils # 0.1 (0.0-0.2) K/mcL Nucleated RBCs/100 WBC 0.2 H (0) /100 WBC PT 10.2 (9.4-12.1) Seconds INR 0.9 APTT 22.3 L (26.0-36.0) Seconds VBG pH (7.32-7.42) pH Units VBG pCO2 (41-51) mmHg VBG pO2 (25-50) mmHg VBG HCO3 (21-27) mEq/L Sodium (136-145) mEq/L Potassium (3.5-5.1) mEq/L Chloride (98-107) mEq/L Carbon Dioxide (23-29) mEq/L BUN (8-23) mg/dL Creatinine (0.70-1.30) mg/dL Est GFR ( Amer) (> 60) Est GFR (Non-Af Amer) (> 60) BUN/Creatinine Ratio (6-26) Glucose (70-105) mg/dL Calculated Osmolality (280-300) Lactic Acid (0.5-2.2) mmol/L Calcium (8.6-10.3) mg/dL Total Bilirubin (0.3-1.0) mg/dL Direct Bilirubin (0.0-0.2) mg/dL Indirect Bilirubin (0.0-1.2) mg/dL AST (13-39) Units/L ALT (7-52) Units/L Alkaline Phosphatase (34-104) Units/L Troponin I (< 0.04) ng/mL Serum Total Protein (6.4-8.9) g/dL Albumin (3.5-5.7) g/dL Globulin (2.4-3.5) g/dL Albumin/Globulin Ratio (1.1-2.2) Beta-Hydroxybutyric Acd (0.02-0.27) mmol/L Urine Color Yellow (Yellow) Urine Clarity Turbid A (Clear) Urine pH 5.0 (5.0-8.0) pH Units Ur Specific [place] 1.028 H (1.010-1.025) Urine Protein Negative (Neg-Trace) mg/dL Urine Glucose (UA) 250 H (Normal) mg/dL Urine Ketones Negative (Negative) mg/dL Urine Blood Moderate H (Negative) Urine Nitrite Negative (Negative) Urine Bilirubin Negative (Negative) Urine Urobilinogen Normal (Normal) mg/dL Ur Leukocyte Esterase Large H (Negative) Urine Microscopic RBC 5-15 H (0-3) per hpf Urine Microscopic WBC TNTC H (0-3) per hpf Ur Squamous Epith Cells Many H (None-Few) per lpf Urine Bacteria None Seen (None-Few) per hpf Urine Yeast Many H (None Seen) per hpf Ur Culture Indicated? NO. A (NO) 02/15/18 02/15/18 02/15/18 Range/Units 06:10 06:10 06:10 WBC (4.3-11.1) K/mcL RBC (4.19-5.50) M/mcL Hgb (12.9-16.9) g/dL Hct (37.5-50.1) % MCV (83.0-100.0) fL MCH (28.0-33.3) pg MCHC (31.6-35.5) g/dL RDW (11.5-14.5) % Plt Count (140-400) K/mcL MPV (9.4-12.4) fL Immature Gran % (0-4) % Seg Neutrophils % % Lymphocytes % % Monocytes % % Eosinophils % % Basophils % % Neutrophils # (1.6-8.9) K/mcL Lymphocytes # (0.6-4.6) K/mcL Monocytes # (0.0-1.3) K/mcL Eosinophils # (0.0-0.6) K/mcL Basophils # (0.0-0.2) K/mcL Nucleated RBCs/100 WBC (0) /100 WBC PT (9.4-12.1) Seconds INR APTT (26.0-36.0) Seconds VBG pH (7.32-7.42) pH Units VBG pCO2 (41-51) mmHg VBG pO2 (25-50) mmHg VBG HCO3 (21-27) mEq/L Sodium 139 (136-145) mEq/L Potassium 3.5 (3.5-5.1) mEq/L Chloride 98 (98-107) mEq/L Carbon Dioxide 31 H (23-29) mEq/L BUN 58 H (8-23) mg/dL Creatinine 1.17 (0.70-1.30) mg/dL Est GFR ( Amer) > 60 (> 60) Est GFR (Non-Af Amer) > 60 (> 60) BUN/Creatinine Ratio 50 H (6-26) Glucose 110 H (70-105) mg/dL Calculated Osmolality 305 H (280-300) Lactic Acid 1.9 (0.5-2.2) mmol/L Calcium 10.3 (8.6-10.3) mg/dL Total Bilirubin 0.4 (0.3-1.0) mg/dL Direct Bilirubin 0.1 (0.0-0.2) mg/dL Indirect Bilirubin 0.3 (0.0-1.2) mg/dL AST 19 (13-39) Units/L ALT 15 (7-52) Units/L Alkaline Phosphatase 94 (34-104) Units/L Troponin I 0.04 H* (< 0.04) ng/mL Serum Total Protein 6.7 (6.4-8.9) g/dL Albumin 3.6 (3.5-5.7) g/dL Globulin 3.1 (2.4-3.5) g/dL Albumin/Globulin Ratio 1.2 (1.1-2.2) Beta-Hydroxybutyric Acd 0.19 (0.02-0.27) mmol/L Urine Color (Yellow) Urine Clarity (Clear) Urine pH (5.0-8.0) pH Units Ur Specific [place] (1.010-1.025) Urine Protein (Neg-Trace) mg/dL Urine Glucose (UA) (Normal) mg/dL Urine Ketones (Negative) mg/dL Urine Blood (Negative) Urine Nitrite (Negative) Urine Bilirubin (Negative) Urine Urobilinogen (Normal) mg/dL Ur Leukocyte Esterase (Negative) Urine Microscopic RBC (0-3) per hpf Urine Microscopic WBC (0-3) per hpf Ur Squamous Epith Cells (None-Few) per lpf Urine Bacteria (None-Few) per hpf Urine Yeast (None Seen) per hpf Ur Culture Indicated? (NO) 02/15/18 Range/Units 06:35 WBC (4.3-11.1) K/mcL RBC (4.19-5.50) M/mcL Hgb (12.9-16.9) g/dL Hct (37.5-50.1) % MCV (83.0-100.0) fL MCH (28.0-33.3) pg MCHC (31.6-35.5) g/dL RDW (11.5-14.5) % Plt Count (140-400) K/mcL MPV (9.4-12.4) fL Immature Gran % (0-4) % Seg Neutrophils % % Lymphocytes % % Monocytes % % Eosinophils % % Basophils % % Neutrophils # (1.6-8.9) K/mcL Lymphocytes # (0.6-4.6) K/mcL Monocytes # (0.0-1.3) K/mcL Eosinophils # (0.0-0.6) K/mcL Basophils # (0.0-0.2) K/mcL Nucleated RBCs/100 WBC (0) /100 WBC PT (9.4-12.1) Seconds INR APTT (26.0-36.0) Seconds VBG pH 7.41 (7.32-7.42) pH Units VBG pCO2 54 H (41-51) mmHg VBG pO2 55 H (25-50) mmHg VBG HCO3 34 H (21-27) mEq/L Sodium (136-145) mEq/L Potassium (3.5-5.1) mEq/L Chloride (98-107) mEq/L Carbon Dioxide (23-29) mEq/L BUN (8-23) mg/dL Creatinine (0.70-1.30) mg/dL Est GFR ( Amer) (> 60) Est GFR (Non-Af Amer) (> 60) BUN/Creatinine Ratio (6-26) Glucose (70-105) mg/dL Calculated Osmolality (280-300) Lactic Acid (0.5-2.2) mmol/L Calcium (8.6-10.3) mg/dL Total Bilirubin (0.3-1.0) mg/dL Direct Bilirubin (0.0-0.2) mg/dL Indirect Bilirubin (0.0-1.2) mg/dL AST (13-39) Units/L ALT (7-52) Units/L Alkaline Phosphatase (34-104) Units/L Troponin I (< 0.04) ng/mL Serum Total Protein (6.4-8.9) g/dL Albumin (3.5-5.7) g/dL Globulin (2.4-3.5) g/dL Albumin/Globulin Ratio (1.1-2.2) Beta-Hydroxybutyric Acd (0.02-0.27) mmol/L Urine Color (Yellow) Urine Clarity (Clear) Urine pH (5.0-8.0) pH Units Ur Specific [place] (1.010-1.025) Urine Protein (Neg-Trace) mg/dL Urine Glucose (UA) (Normal) mg/dL Urine Ketones (Negative) mg/dL Urine Blood (Negative) Urine Nitrite (Negative) Urine Bilirubin (Negative) Urine Urobilinogen (Normal) mg/dL Ur Leukocyte Esterase (Negative) Urine Microscopic RBC (0-3) per hpf Urine Microscopic WBC (0-3) per hpf Ur Squamous Epith Cells (None-Few) per lpf Urine Bacteria (None-Few) per hpf Urine Yeast (None Seen) per hpf Ur Culture Indicated? (NO) TPA Checklist - LKW: 3-4.5 hrs Add. Warnings/Precautions Patient/family understanding: The patient/family members have been counseled and understood the risk, benefit , and alternatives of treatment. Critical Care Time Critical Care Time: Yes Total Critical Care Time: 45 Attestation: Critical care performed: Time is exclusive of separately billable procedures. Time includes: direct patient care, patient reassessment, coordination of patient care, interpretation of data (laboratory data, radiology data, and respiratory data), review of patient's medical records, medical consultation and documentation of patient care. Procedures included in critical care time: Procedures excluded from critical care time:
[2018-02-15 05:29] LABS: Bilirubin,Urine Negative (Negative); Blood,Urine Moderate (Negative); Clarity,Urine Turbid (Clear); Color,Urine Yellow (Yellow); Glucose,Urine (UA) 250 mg/dL (Normal); Ketones,Urine Negative (Negative); Leukocyte Esterase,Urine Large (Negative); Nitrite,Urine Negative (Negative); Protein,Urine Negative (Neg-Trace); Specific Gravity,Urine 1.028 (1.010-1.025); Urobilinogen,Urine Normal (Normal)
[2018-02-15 05:32] LABS: Bacteria,Urine None Seen per hpf (None-Few); Squamous Epithelial Cell,Urine Many per lpf (None-Few); WBC,Urine TNTC per hpf (0-3)
[2018-02-15 06:08] LABS: Yeast,Urine Many per hpf (None Seen)
[2018-02-15] MEDS ORDERED: Naloxone 0.4 MG/ML INJ IVP ONE (06:29)
[2018-02-15 06:37] LABS: Basophils # 0.1 K/mcL (0.0-0.2); Basophils % 0.4 %; Hematocrit 38.3 % (37.5-50.1); Immature Granulocytes % 2.8 % (0-4); Lymphocytes # 0.8 K/mcL (0.6-4.6); Lymphocytes % 3.9 %; Mean Corpuscular HGB Conc 31.3 g/dL (31.6-35.5); Mean Corpuscular Volume 95.8 fL (83.0-100.0); Mean Platelet Volume 9.4 fL (9.4-12.4); Monocytes # 1.7 K/mcL (0.0-1.3); Monocytes % 8.8 %; Neutrophils # 16.5 K/mcL (1.6-8.9); Nucleated Red Blood Cells 0.2 /100 WBC (0); Platelet Count 345 K/mcL (140-400); Red Cell Distribution Width 15.5 % (11.5-14.5); Segmented Neutrophils % 84.1 %
[2018-02-15 06:38] LABS: VBG HCO3 34 mEq/L (21-27); VBG PCO2 54 mmHg (41-51); VBG PH 7.41 pH Units (7.32-7.42); VBG PO2 55 mmHg (25-50)
[2018-02-15 06:54] LABS: Alanine Aminotransferase 15 Units/L (7-52); Albumin 3.6 g/dL (3.5-5.7); Albumin/Globulin Ratio 1.2 (1.1-2.2); Alkaline Phosphatase 94 Units/L (34-104); Aspartate Amino Transferase 19 Units/L (13-39); BUN/Creatinine Ratio 50 (6-26); Bilirubin,Direct 0.1 mg/dL (0.0-0.2); Bilirubin,Indirect 0.3 mg/dL (0.0-1.2); Bilirubin,Total 0.4 mg/dL (0.3-1.0); Blood Urea Nitrogen 58 mg/dL (8-23); Calcium 10.3 mg/dL (8.6-10.3); Carbon Dioxide 31 mEq/L (23-29); Chloride 98 mEq/L (98-107); Globulin 3.1 g/dL (2.4-3.5); Glucose 110 mg/dL (70-105); INR 0.9; Osmolality,Calculated 305 (280-300); Potassium 3.5 mEq/L (3.5-5.1); Prothrombin Time 10.2 Seconds (9.4-12.1); Sodium 139 mEq/L (136-145); Total Protein 6.7 g/dL (6.4-8.9); eGFR For Non-African Americans > 60 (> 60)
[2018-02-15 06:56] LABS: Activated Partial Thrombo Time 22.3 Seconds (26.0-36.0)
[2018-02-15 07:00] LABS: Troponin I 0.04 ng/mL (< 0.04)
--- NOTE | 2018-02-15 07:12 | Emergency Department Note ---
Disposition Clinical Impression: Hypoglycemia, Sepsis due to pneumonia Altered mental status Qualifiers: Altered mental status type: unspecified Qualified Code(s): R41.82 - Altered mental status, unspecified Hypothermia Qualifiers: Encounter type: initial encounter Qualified Code(s): T68.XXXA - Hypothermia, initial encounter Leukocytosis Qualifiers: Leukocytosis type: unspecified Qualified Code(s): D72.829 - Elevated white blood cell count, unspecified Disposition: Still a Patient Condition: Serious Referrals: Juan Abraham [Primary Care Provider] - Forms: ED Satisfaction Letter Time of Disposition: 07:28 General Adult HPI - General Chief complaint: ED Altered Mental Status Stated complaint: hypoglycemia Time Seen by Provider: 02/15/18 04:27 Source: family, EMS Limitations: altered mental status - History of Present Illness Pain Scale: 0 - Related Data Home Medications Medication Instructions Recorded Confirmed Nitroglycerin [Nitrostat] 0.4 mg SL PRN PRN 03/24/15 01/17/18 Ergocalciferol (VITAMIN D2) 50,000 unit PO QWEEK 05/26/15 01/17/18 [Vitamin D2 (50,000 UNIT)] Aspirin 81 mg PO DAILY 09/22/15 01/17/18 Cyanocobalamin (B-12) [Vitamin B12] 1,000 mcg IM QMONTH 07/22/16 01/17/18 Insulin Lispro Protamin/Lispro 12 unit SQ QAM 07/22/16 01/17/18 [Humalog Mix 75-25 Vial] Insulin Lispro Protamin/Lispro 12 unit SQ QPM 07/22/16 01/17/18 [Humalog Mix 75-25 Vial] Ipratropium/Albuterol Neb [Duoneb] 3 ml IH Q6HR PRN 07/22/16 01/17/18 Saxagliptin HCl [Onglyza] 2.5 mg PO DAILY 07/22/16 01/17/18 Azelastine 0.1% Nasal [place] 1 puff NS BID 11/15/17 01/17/18 [Astelin] Oxycodone HCl/Acetaminophen 1 each PO Q6HR PRN 01/16/18 01/17/18 [Percocet 5-325 mg Tablet] Albuterol Sulfate [Ventolin Hfa] 2 puff IH Q6H PRN 01/17/18 01/17/18 Nivolumab [Opdivo] 40 mg IV QMONTH 01/17/18 01/17/18 Olopatadine HCl [Patanase] 30.5 gm NS BID 01/17/18 01/17/18 Metoprolol XL (24 HR) Succ [Toprol 200 mg PO DAILY 01/22/18 01/22/18 Xl] Previous Rx's Medication Instructions Recorded Levothyroxine [Synthroid] 150 mcg PO DAILY #30 tablet 01/17/18 Clopidogrel [Plavix] 75 mg PO DAILY tablet 01/21/18 Bumetanide [Bumex] 2 mg PO DAILY #0 02/10/18 Insulin Glargine,Hum.rec.anlog 52 unit SQ QAM #0 02/10/18 [Lantus Solostar] Isosorbide MONOnitrate (24 HR) 60 mg PO DAILY #30 tab.er.24h 02/10/18 [Imdur] Allergies Allergy/AdvReac Type Severity Reaction Status Date / Time Amoxicillin Allergy Hives Verified 01/16/18 18:39 adhesive AdvReac Rash Verified 01/16/18 18:39 Past Medical History - Past Medical History Medical history: Reports: cancer, coronary artery disease, DVT, diabetes, hyperlipidemia, hypertension, migraine, myocardial infarction, other Surgical history: Reports: cataract, coronary bypass (CABG), orthopedic, other, other Psychiatric history: Reports: no psych history - Social History Smoking Status: Former smoker Smokeless Tobacco Status: No Alcohol use: Reports: none, recent Drug use: Reports: none Physical Exam - General Limitations: altered mental status General appearance: lethargic, obtunded Course Vital Signs Temperature 95.1 F L 02/15/18 04:21 Pulse Rate 68 02/15/18 04:21 Respiratory Rate 18 02/15/18 04:21 Blood Pressure 153/76 02/15/18 04:21 O2 Sat by Pulse Oximetry 95 02/15/18 04:21 Temperature 95.1 F L 02/15/18 04:21 Pulse Rate 59 02/15/18 06:23 Respiratory Rate 17 02/15/18 06:23 Blood Pressure 161/92 02/15/18 06:23 O2 Sat by Pulse Oximetry 100 02/15/18 06:23 Oxygen Delivery Oxygen Delivery Oximizer Medical Decision Making - Lab Data Result diagrams: 02/15/18 06:10 02/15/18 06:10 Lab Results 02/15/18 02/15/18 02/15/18 Range/Units 05:18 06:10 06:10 WBC 19.6 H (4.3-11.1) K/mcL RBC 4.00 L (4.19-5.50) M/mcL Hgb 12.0 L (12.9-16.9) g/dL Hct 38.3 (37.5-50.1) % MCV 95.8 (83.0-100.0) fL MCH 30.0 (28.0-33.3) pg MCHC 31.3 L (31.6-35.5) g/dL RDW 15.5 H (11.5-14.5) % Plt Count 345 (140-400) K/mcL MPV 9.4 (9.4-12.4) fL Immature Gran % 2.8 (0-4) % Seg Neutrophils % 84.1 % Lymphocytes % 3.9 % Monocytes % 8.8 % Eosinophils % 0.0 % Basophils % 0.4 % Neutrophils # 16.5 H (1.6-8.9) K/mcL Lymphocytes # 0.8 (0.6-4.6) K/mcL Monocytes # 1.7 H (0.0-1.3) K/mcL Eosinophils # 0.0 (0.0-0.6) K/mcL Basophils # 0.1 (0.0-0.2) K/mcL Nucleated RBCs/100 WBC 0.2 H (0) /100 WBC PT 10.2 (9.4-12.1) Seconds INR 0.9 APTT 22.3 L (26.0-36.0) Seconds VBG pH (7.32-7.42) pH Units VBG pCO2 (41-51) mmHg VBG pO2 (25-50) mmHg VBG HCO3 (21-27) mEq/L Sodium (136-145) mEq/L Potassium (3.5-5.1) mEq/L Chloride (98-107) mEq/L Carbon Dioxide (23-29) mEq/L BUN (8-23) mg/dL Creatinine (0.70-1.30) mg/dL Est GFR ( Amer) (> 60) Est GFR (Non-Af Amer) (> 60) BUN/Creatinine Ratio (6-26) Glucose (70-105) mg/dL Calculated Osmolality (280-300) Lactic Acid (0.5-2.2) mmol/L Calcium (8.6-10.3) mg/dL Total Bilirubin (0.3-1.0) mg/dL Direct Bilirubin (0.0-0.2) mg/dL Indirect Bilirubin (0.0-1.2) mg/dL AST (13-39) Units/L ALT (7-52) Units/L Alkaline Phosphatase (34-104) Units/L Troponin I (< 0.04) ng/mL Serum Total Protein (6.4-8.9) g/dL Albumin (3.5-5.7) g/dL Globulin (2.4-3.5) g/dL Albumin/Globulin Ratio (1.1-2.2) Beta-Hydroxybutyric Acd (0.02-0.27) mmol/L Urine Color Yellow (Yellow) Urine Clarity Turbid A (Clear) Urine pH 5.0 (5.0-8.0) pH Units Ur Specific [place] 1.028 H (1.010-1.025) Urine Protein Negative (Neg-Trace) mg/dL Urine Glucose (UA) 250 H (Normal) mg/dL Urine Ketones Negative (Negative) mg/dL Urine Blood Moderate H (Negative) Urine Nitrite Negative (Negative) Urine Bilirubin Negative (Negative) Urine Urobilinogen Normal (Normal) mg/dL Ur Leukocyte Esterase Large H (Negative) Urine Microscopic RBC 5-15 H (0-3) per hpf Urine Microscopic WBC TNTC H (0-3) per hpf Ur Squamous Epith Cells Many H (None-Few) per lpf Urine Bacteria None Seen (None-Few) per hpf Urine Yeast Many H (None Seen) per hpf Ur Culture Indicated? NO. A (NO) 02/15/18 02/15/18 02/15/18 Range/Units 06:10 06:10 06:10 WBC (4.3-11.1) K/mcL RBC (4.19-5.50) M/mcL Hgb (12.9-16.9) g/dL Hct (37.5-50.1) % MCV (83.0-100.0) fL MCH (28.0-33.3) pg MCHC (31.6-35.5) g/dL RDW (11.5-14.5) % Plt Count (140-400) K/mcL MPV (9.4-12.4) fL Immature Gran % (0-4) % Seg Neutrophils % % Lymphocytes % % Monocytes % % Eosinophils % % Basophils % % Neutrophils # (1.6-8.9) K/mcL Lymphocytes # (0.6-4.6) K/mcL Monocytes # (0.0-1.3) K/mcL Eosinophils # (0.0-0.6) K/mcL Basophils # (0.0-0.2) K/mcL Nucleated RBCs/100 WBC (0) /100 WBC PT (9.4-12.1) Seconds INR APTT (26.0-36.0) Seconds VBG pH (7.32-7.42) pH Units VBG pCO2 (41-51) mmHg VBG pO2 (25-50) mmHg VBG HCO3 (21-27) mEq/L Sodium 139 (136-145) mEq/L Potassium 3.5 (3.5-5.1) mEq/L Chloride 98 (98-107) mEq/L Carbon Dioxide 31 H (23-29) mEq/L BUN 58 H (8-23) mg/dL Creatinine 1.17 (0.70-1.30) mg/dL Est GFR ( Amer) > 60 (> 60) Est GFR (Non-Af Amer) > 60 (> 60) BUN/Creatinine Ratio 50 H (6-26) Glucose 110 H (70-105) mg/dL Calculated Osmolality 305 H (280-300) Lactic Acid 1.9 (0.5-2.2) mmol/L Calcium 10.3 (8.6-10.3) mg/dL Total Bilirubin 0.4 (0.3-1.0) mg/dL Direct Bilirubin 0.1 (0.0-0.2) mg/dL Indirect Bilirubin 0.3 (0.0-1.2) mg/dL AST 19 (13-39) Units/L ALT 15 (7-52) Units/L Alkaline Phosphatase 94 (34-104) Units/L Troponin I 0.04 H* (< 0.04) ng/mL Serum Total Protein 6.7 (6.4-8.9) g/dL Albumin 3.6 (3.5-5.7) g/dL Globulin 3.1 (2.4-3.5) g/dL Albumin/Globulin Ratio 1.2 (1.1-2.2) Beta-Hydroxybutyric Acd 0.19 (0.02-0.27) mmol/L Urine Color (Yellow) Urine Clarity (Clear) Urine pH (5.0-8.0) pH Units Ur Specific [place] (1.010-1.025) Urine Protein (Neg-Trace) mg/dL Urine Glucose (UA) (Normal) mg/dL Urine Ketones (Negative) mg/dL Urine Blood (Negative) Urine Nitrite (Negative) Urine Bilirubin (Negative) Urine Urobilinogen (Normal) mg/dL Ur Leukocyte Esterase (Negative) Urine Microscopic RBC (0-3) per hpf Urine Microscopic WBC (0-3) per hpf Ur Squamous Epith Cells (None-Few) per lpf Urine Bacteria (None-Few) per hpf Urine Yeast (None Seen) per hpf Ur Culture Indicated? (NO) 02/15/18 Range/Units 06:35 WBC (4.3-11.1) K/mcL RBC (4.19-5.50) M/mcL Hgb (12.9-16.9) g/dL Hct (37.5-50.1) % MCV (83.0-100.0) fL MCH (28.0-33.3) pg MCHC (31.6-35.5) g/dL RDW (11.5-14.5) % Plt Count (140-400) K/mcL MPV (9.4-12.4) fL Immature Gran % (0-4) % Seg Neutrophils % % Lymphocytes % % Monocytes % % Eosinophils % % Basophils % % Neutrophils # (1.6-8.9) K/mcL Lymphocytes # (0.6-4.6) K/mcL Monocytes # (0.0-1.3) K/mcL Eosinophils # (0.0-0.6) K/mcL Basophils # (0.0-0.2) K/mcL Nucleated RBCs/100 WBC (0) /100 WBC PT (9.4-12.1) Seconds INR APTT (26.0-36.0) Seconds VBG pH 7.41 (7.32-7.42) pH Units VBG pCO2 54 H (41-51) mmHg VBG pO2 55 H (25-50) mmHg VBG HCO3 34 H (21-27) mEq/L Sodium (136-145) mEq/L Potassium (3.5-5.1) mEq/L Chloride (98-107) mEq/L Carbon Dioxide (23-29) mEq/L BUN (8-23) mg/dL Creatinine (0.70-1.30) mg/dL Est GFR ( Amer) (> 60) Est GFR (Non-Af Amer) (> 60) BUN/Creatinine Ratio (6-26) Glucose (70-105) mg/dL Calculated Osmolality (280-300) Lactic Acid (0.5-2.2) mmol/L Calcium (8.6-10.3) mg/dL Total Bilirubin (0.3-1.0) mg/dL Direct Bilirubin (0.0-0.2) mg/dL Indirect Bilirubin (0.0-1.2) mg/dL AST (13-39) Units/L ALT (7-52) Units/L Alkaline Phosphatase (34-104) Units/L Troponin I (< 0.04) ng/mL Serum Total Protein (6.4-8.9) g/dL Albumin (3.5-5.7) g/dL Globulin (2.4-3.5) g/dL Albumin/Globulin Ratio (1.1-2.2) Beta-Hydroxybutyric Acd (0.02-0.27) mmol/L Urine Color (Yellow) Urine Clarity (Clear) Urine pH (5.0-8.0) pH Units Ur Specific [place] (1.010-1.025) Urine Protein (Neg-Trace) mg/dL Urine Glucose (UA) (Normal) mg/dL Urine Ketones (Negative) mg/dL Urine Blood (Negative) Urine Nitrite (Negative) Urine Bilirubin (Negative) Urine Urobilinogen (Normal) mg/dL Ur Leukocyte Esterase (Negative) Urine Microscopic RBC (0-3) per hpf Urine Microscopic WBC (0-3) per hpf Ur Squamous Epith Cells (None-Few) per lpf Urine Bacteria (None-Few) per hpf Urine Yeast (None Seen) per hpf Ur Culture Indicated? (NO) Critical Care Time Critical Care Time: Yes Total Critical Care Time: 30 Attestation: The high probability of a clinically significant, sudden or life threatening deterioration of the [] system(s) required my full and direct attention, intervention and personal management. The aggregate critical care time was [] minutes. This time is in addition to time spent performing reported procedures but includes the following: [] Data Review and interpretation [] Patient assessment and monitoring of vital signs [] Documentation [] Medication orders and management Attestation Statement - Attestation Attestation: Care of patient assumed from Dr. Lowry at 7 AM pending admission. The patient presented with altered mentation and hypoglycemia. He was hypothermic. He was placed on an IV dextro strip. He is sleeping at the time exam. I did review the results of his imaging studies and labs. I will request admission 07:40: Chest x-ray suggests pneumonia. H In a box initiated. I did discuss the patient's amoxicillin allergy with the in-house pharmacist who states the patient has received cefepime previously. Dr. Freedman accepts admission
[2018-02-15] MEDS ORDERED: Levofloxacin 500 MG/100 ML 500 MG/100 ML BAG IVPB ONE (07:33)
[2018-02-15] MEDS ORDERED: Cefepime HCl 1,000 MG in 0.9 % Sodium Chloride Mini Bag 100 ML IVPB ONE (07:39)
[2018-02-15] MEDS ORDERED: 0.9 % Sodium Chloride 1,000 ML ONE (09:46)
--- NOTE | 2018-02-15 09:51 | Electrocardiograph Report ---
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
--- NOTE | 2018-02-15 09:54 | Electrocardiograph Report ---
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
--- NOTE | 2018-02-15 12:14 | Pulmonology History & Physical ---
<Vijay Arellano W - Last Filed: 02/15/18 14:05> Date of Encounter: 02/15/18 History of Present Illness HPI: Mr. Flores is a 72 year old male Medications and Allergies Nitroglycerin [Nitrostat] 0.4 mg SL PRN PRN 03/24/15 [History] Aspirin 81 mg PO QPM 09/22/15 [History] Cyanocobalamin (B-12) [Vitamin B12] 1,000 mcg IM QMONTH 07/22/16 [History] Insulin Lispro Protamin/Lispro [Humalog Mix 75-25 Vial] 12 unit SQ BIDWM [History] Ipratropium/Albuterol Neb [Duoneb] 3 ml IH Q6HR PRN 07/22/16 [History] Saxagliptin HCl [Onglyza] 2.5 mg PO DAILY 07/22/16 [History] Azelastine 0.1% Nasal [place] [Astelin] 1 puff NS BID 11/15/17 [History] Oxycodone HCl/Acetaminophen [Percocet 5-325 mg Tablet] 1 each PO Q6HR PRN [History] Albuterol Sulfate [Ventolin Hfa] 2 puff IH Q6H PRN 01/17/18 [History] Levothyroxine [Synthroid] 150 mcg PO DAILY #30 tablet 01/17/18 [Rx] Clopidogrel [Plavix] 75 mg PO DAILY tablet 01/21/18 [Rx] Metoprolol XL (24 HR) Succ [Toprol Xl] 200 mg PO DAILY 01/22/18 [History] Insulin Glargine,Hum.rec.anlog [Lantus Solostar] 52 unit SQ QAM #0 02/10/18 [Rx] Isosorbide MONOnitrate (24 HR) [Imdur] 60 mg PO DAILY #30 tab.er.24h 02/10/18 [ Rx] Acetylcysteine [N-Lootot-d-Cysteine] 600 mg PO BID 02/15/18 [History] Ammonium Lactate [Nadira-Hydrolac] 1 appl TP BID PRN 02/15/18 [History] Budesonide/Formoterol 160/4.5 [Symbicort 160/4.5] 2 puff IH BIDR 02/15/18 [ History] Bumetanide [Bumex] 2 mg PO BID 02/15/18 [History] Diltiazem HCl [Diltiazem ER] 120 mg PO QPM 02/15/18 [History] Ergocalciferol (VITAMIN D2) [Vitamin D2] 50,000 unit PO SA 02/15/18 [History] Gabapentin [Neurontin] 300 mg PO BID 02/15/18 [History] Potassium Chloride [Klor-Con 10] 10 meq PO HS 02/15/18 [History] Potassium Chloride [Klor-Con 10] 20 meq PO DAILY 02/15/18 [History] 3 Allergy/AdvReac Type Severity Reaction Status Date / Time Amoxicillin Allergy Hives Verified 01/16/18 18:39 adhesive AdvReac Rash Verified 01/16/18 18:39 All Systems: The remainder of the systems were reviewed and are negative Physical Examination Vital Signs: Vital Signs, Last 4 Hours Temp Pulse Resp BP Pulse Ox 02/15/18 12:16 97.5 F L 66 16 123/94 99 02/15/18 11:50 97.2 F L 18 116/64 02/15/18 11:13 97.2 F L 62 18 121/64 100 Results - Laboratory Findings CBC and BMP: 02/15/18 06:10 02/15/18 06:10 PT/INR, D-dimer PT 10.2 Seconds (9.4-12.1) 02/15/18 06:10 Abnormal lab findings: Abnormal lab results WBC 19.6 K/mcL (4.3-11.1) H 02/15/18 06:10 RBC 4.00 M/mcL (4.19-5.50) L 02/15/18 06:10 Hgb 12.0 g/dL (12.9-16.9) L 02/15/18 06:10 MCHC 31.3 g/dL (31.6-35.5) L 02/15/18 06:10 RDW 15.5 % (11.5-14.5) H 02/15/18 06:10 Neutrophils # 16.5 K/mcL (1.6-8.9) H 02/15/18 06:10 Monocytes # 1.7 K/mcL (0.0-1.3) H 02/15/18 06:10 Nucleated RBCs/100 WBC 0.2 /100 WBC (0) H 02/15/18 06:10 APTT 22.3 Seconds (26.0-36.0) L 02/15/18 06:10 VBG pCO2 54 mmHg (41-51) H 02/15/18 06:35 VBG pO2 55 mmHg (25-50) H 02/15/18 06:35 VBG HCO3 34 mEq/L (21-27) H 02/15/18 06:35 Carbon Dioxide 31 mEq/L (23-29) H 02/15/18 06:10 BUN 58 mg/dL (8-23) H 02/15/18 06:10 BUN/Creatinine Ratio 50 (6-26) H 02/15/18 06:10 Glucose 110 mg/dL (70-105) H 02/15/18 06:10 Calculated Osmolality 305 (280-300) H 02/15/18 06:10 Troponin I 0.04 ng/mL (< 0.04) H* 02/15/18 06:10 Urine Clarity Turbid (Clear) A 02/15/18 05:18 Ur Specific [place] 1.028 (1.010-1.025) H 02/15/18 05:18 Urine Glucose (UA) 250 mg/dL (Normal) H 02/15/18 05:18 Urine Blood Moderate (Negative) H 02/15/18 05:18 Ur Leukocyte Esterase Large (Negative) H 02/15/18 05:18 Urine Microscopic RBC 5-15 per hpf (0-3) H 02/15/18 05:18 Urine Microscopic WBC TNTC per hpf (0-3) H 02/15/18 05:18 Ur Squamous Epith Cells Many per lpf (None-Few) H 02/15/18 05:18 Urine Yeast Many per hpf (None Seen) H 02/15/18 05:18 Ur Culture Indicated? NO. (NO) A 02/15/18 05:18 - Attending Attestation I examined this patient and my medical decision-making was reviewed with the Resident Physician. I agree with the documented findings, disposition and treatment plan as described except to the extent set forth below. We independently had [id number] contact with the patient Patient seen and examined at bedside Labs, radiology, chart personally reviewed. Management was reviewed during multidisciplinary critical care rounds. EXTRUDER: Patient is fully awake and alert there is some concern about to altered mental status prior to admission the hospital that appears to have resolved no focal neurological deficits. Pulm: Acute on chronic hypoxic respiratory failure acceptable oxygenation at present is to have a acute pneumonia complicated by COPD exacerbation I suspect a component of hydrostatic pulmonary edema start steroids bronchodilators and will start diuresis able once treated for sepsis Cards: Chronic heart failure I suspect a degree of hydrostatic pulmonary edema recent STEMI status post PCI on 2 antiplatelet therapy continue beta gregory and aspirin as well troponin stable patient is currently chest pain-free GI: He has a liver lesion which may be evidence of metastatic disease; continue to monitor for now Nutrition: Advance diet as tolerated Renal: UOP Monitored, Cont to Trend sCr and monitor Electrolytes. ID: Patient presenting with sepsis unclear etiology but suspected pneumonia cultures pending he is on broad-spectrum antibiotics to cover for hospital associated pathogens Heme/Onc: DVT prophylaxis will be given; patient has evidence of metastatic lung cancer will need likely repeat biopsy at some point the timing of which is to be determined based upon no need for dual antiplatelet therapy likely will need oncology consultation Endo: Hypoglycemia with patient with known hyperglycemia I suspect this is related to sepsis and possible medication effect Glucose Monitored his had dextrose infusion and suspect that can be weaned down and stopped is recheck his blood glucose every 2 hours. Patient is hypothermic which I suspect is related to infectious process checking TSH and cortisol Integ/MSK: Skin Care per routine ICU Nursing Protocol to prevent ulcers. Lines: All lines examined without evidence of infection : Dispo: Monitor in ICU overnight CODE: I had and extensive conversation with the patient in front of his family including and daughter and he expressed unequivocally that he did not want to be on a ventilator for any period of time and so have made him DO NOT INTUBATE I identified that CPR is a process that almost universally requires intubation and mechanical ventilation after the event and as such as he did not want to spend any amount of time on a ventilator even if it meant his demise I would also recommend against aggressive or pulmonary resuscitation patient expresses that it is his wishes as well and CODE STATUS was changed to reflect this (DNAR/DNI) <Leland Ballesteros - Last Filed: 02/15/18 21:06> Date of Encounter: 02/15/18 Time of Encounter: 11:45 Assessment and Plan (1) Sepsis Current visit: Yes Status: Acute Likely 2/2 PNA vs UTI Given empiric antibiotics in ED Started on aztreonam and vancomycin Patient presented hypoglycemic and hypothermic with AMS WBC elevated at 19.6 Lactic acid 1.9 BP 118/88 Continue to monitor Qualifiers: Qualified Code(s): A41.9 - Sepsis, unspecified organism (2) Hypoglycemia Current visit: Yes Status: Acute Per family, patient had a glucose of 43, started on D5 infusion Accucheck every 2 hours Current POC glucose is 138 Patient is tolerating a diet Will wean D5 infusion (3) Pneumonia Current visit: Yes Status: Acute Initial WBC >19 CXR concerning for pneumonia Given empiric Abx in ED Started on aztreonam and vancomycin Patient saturating at 99% on 3 L oxygen Qualifiers: Qualified Code(s): J18.9 - Pneumonia, unspecified organism (4) Acute on chronic respiratory failure Current visit: Yes Status: Acute Patient's saturation is 99% on 3L high flow oxygen May be COPD exacerbation component Started methylprednisolone Continue bronchodilators CXR concerning for PNA Given empiric antibiotics in ED Started aztreonam and vancomycin Blood cultures x2 Qualifiers: Qualified Code(s): J96.20 - Acute and chronic respiratory failure, unspecified whether with hypoxia or hypercapnia (5) Hypothermia Current visit: Yes Status: Acute Temp 95.1 on arrival, likely 2/2 hypoglycemia Started warming blanket Current temp is 97.5 May be a hypothyroid component Ordered TSH May be adrenal insufficiency Ordered ACTH stimulation test Qualifiers: Encounter type: initial encounter Qualified Code(s): T68.XXXA - Hypothermia , initial encounter (6) Altered mental status Current visit: Yes Status: Resolved AMS upon arrival likely 2/2 hypoglycemia Resolved Qualifiers: Altered mental status type: unspecified Qualified Code(s): R41.82 - Altered mental status, unspecified History of Present Illness Chief complaint: Altered mental status HPI: Mr. Flores is a 72 year old male with PMHx of DM2, CAD s/p CABG, lung CA, interstitial lung disease on 3L home O2 presented to ED with AMS and hypoglycemia. Patient's recent blood glucose levels have varied from 70s-500s. Per the family, patient may have taken too much insulin yesterday. His blood glucose was in the 60s and EMS got a read of 43, per the family. Patient was given IV dextrose and a warming blanket for hypothermia. Patient had a white count >19 with a CXR concerning for pneumonia. UA was concerning for UTI with increased leukocyte esterase. Patient was given empiric antibiotics and transferred to ICU for close monitoring. In ICU, patient is alert and oriented with normal vitals. He is resting comfortably on 4.5 liter oxygen. Family is at bedside. Patient states he is a former smoker, but quit over 30 years ago. He denies fevers/chills, SOB, CP, cough, abdominal pain. Patient admits to chronic tingling in feet from neuropathy. Past Med Surg Social Fam HX - Past Medical History Medical history: cancer, coronary artery disease, DVT, diabetes, hyperlipidemia , hypertension, migraine, myocardial infarction, other Additional medical history: GEORGE Psychiatric history: no psych history - Past Surgical History Surgical History: cataract, coronary bypass (CABG), orthopedic, other, other Additional surgical history: cardioversion. cardiac ablation. tonsillectomy - Social History Smoking Status: Former smoker Smokeless Tobacco Status: No Alcohol use: none, recent Drug use: none - Family History Mother Adopted: Yes Family Member Ethnicity: Non- Living Status: Hx Family Cardiac Disorders: No Hx Family Respiratory Disorders: No Hx Family Cancer: Yes (ovarian/uterine) Hx Family GI Disorders: Yes (diverticulitis) Hx Family Endocrine Disorder: No Hx Family Neuromuscular Disorders: No Hx Family Neurologic Disorders: No Hx Family HEENT Disorders: No Hx Family Autoimmune Disorders: Yes (psoriasis) All Systems: The remainder of the systems were reviewed and are negative Physical Examination Vital Signs: Vital Signs, Last 4 Hours Temp Pulse Resp BP Pulse Ox 02/15/18 11:13 97.2 F L 62 18 121/64 100 General appearance: no acute distress Eyes: nonicteric Effort: normal Auscultation: right: rales, bilateral: diminished breath sounds, wheezes Cardiovascular: regular rate and rhythm Gastrointestinal: normoactive bowel sounds, soft, non-tender Integumentary: normal Extremities: no cyanosis normal mental status mood appropriate, affect normal Results - Laboratory Findings CBC and BMP: 02/15/18 06:10 02/15/18 06:10 PT/INR, D-dimer PT 10.2 Seconds (9.4-12.1) 02/15/18 06:10 Abnormal lab findings: Abnormal lab results WBC 19.6 K/mcL (4.3-11.1) H 02/15/18 06:10 RBC 4.00 M/mcL (4.19-5.50) L 02/15/18 06:10 Hgb 12.0 g/dL (12.9-16.9) L 02/15/18 06:10 MCHC 31.3 g/dL (31.6-35.5) L 02/15/18 06:10 RDW 15.5 % (11.5-14.5) H 02/15/18 06:10 Neutrophils # 16.5 K/mcL (1.6-8.9) H 02/15/18 06:10 Monocytes # 1.7 K/mcL (0.0-1.3) H 02/15/18 06:10 Nucleated RBCs/100 WBC 0.2 /100 WBC (0) H 02/15/18 06:10 APTT 22.3 Seconds (26.0-36.0) L 02/15/18 06:10 VBG pCO2 54 mmHg (41-51) H 02/15/18 06:35 VBG pO2 55 mmHg (25-50) H 02/15/18 06:35 VBG HCO3 34 mEq/L (21-27) H 02/15/18 06:35 Carbon Dioxide 31 mEq/L (23-29) H 02/15/18 06:10 BUN 58 mg/dL (8-23) H 02/15/18 06:10 BUN/Creatinine Ratio 50 (6-26) H 02/15/18 06:10 Glucose 110 mg/dL (70-105) H 02/15/18 06:10 POC Glucose 107 mg/dL (70-99) H 02/15/18 08:37 Calculated Osmolality 305 (280-300) H 02/15/18 06:10 Troponin I 0.04 ng/mL (< 0.04) H* 02/15/18 06:10 Urine Clarity Turbid (Clear) A 02/15/18 05:18 Ur Specific [place] 1.028 (1.010-1.025) H 02/15/18 05:18 Urine Glucose (UA) 250 mg/dL (Normal) H 02/15/18 05:18 Urine Blood Moderate (Negative) H 02/15/18 05:18 Ur Leukocyte Esterase Large (Negative) H 02/15/18 05:18 Urine Microscopic RBC 5-15 per hpf (0-3) H 02/15/18 05:18 Urine Microscopic WBC TNTC per hpf (0-3) H 02/15/18 05:18 Ur Squamous Epith Cells Many per lpf (None-Few) H 02/15/18 05:18 Urine Yeast Many per hpf (None Seen) H 02/15/18 05:18 Ur Culture Indicated? NO. (NO) A 02/15/18 05:18
[2018-02-15] MEDS ORDERED: Naloxone 0.4 MG/ML INJ IVP PRN (12:24)
[2018-02-15] MEDS ORDERED: D5% in Water 1,000 ML IVC PRN (12:26)
[2018-02-15] MEDS ORDERED: Dextrose Gel 15 GM/37.5 ML TUBE PO PRN ×2 (12:26)
[2018-02-15] MEDS ORDERED: *HR* Dextrose 50 % in Water (Syg) 50 ML SYRINGE IVP PRN (12:26)
[2018-02-15] MEDS ORDERED: Vancomycin (wt based) 1,000 MG VIAL IVPB SCH (13:00)
[2018-02-15] MEDS ORDERED: Albuterol 2.5 MG/3 ML NEBULIZER IH PRN (13:01)
[2018-02-15] MEDS ORDERED: *HR* Alteplase (Cathflo) 2 MG VIAL IVP ONE (13:37)
[2018-02-15] MEDS ORDERED: *HR* Enoxaparin 40 MG/0.4 ML SYRINGE SQ ONE (13:43)
[2018-02-15] MEDS ORDERED: Cosyntropin 250 MCG/2 ML VIAL IVP ONE (16:25)
[2018-02-15] MEDS: Aztreonam 2,000 MG in Water for inj. (sterile) 20 ML 20 ML IVP SCH ×2 (16:41→23:00)
[2018-02-15] MEDS: Ipratropium/Albuterol Neb 3 ML IH SCH ×2 (16:45→20:49)
[2018-02-15] MEDS: MethylPREDNISolone 40 MG/ML VIAL IVP SCH ×2 (18:33→23:01)
[2018-02-16] MEDS: Ipratropium/Albuterol Neb 3 ML IH SCH ×4 (00:10→11:33)
[2018-02-16 04:00] LABS: Basophils % 0.3 %; Hemoglobin 11.5 g/dL (12.9-16.9); Immature Granulocytes % 1.4 % (0-4); Lymphocytes # 0.4 K/mcL (0.6-4.6); Lymphocytes % 3.4 %; Mean Corpuscular HGB Conc 31.9 g/dL (31.6-35.5); Mean Corpuscular Hemoglobin 30.1 pg (28.0-33.3); Mean Corpuscular Volume 94.2 fL (83.0-100.0); Mean Platelet Volume 9.7 fL (9.4-12.4); Monocytes # 0.3 K/mcL (0.0-1.3); Monocytes % 2.1 %; Neutrophils # 10.9 K/mcL (1.6-8.9); Platelet Count 308 K/mcL (140-400); Red Blood Count 3.82 M/mcL (4.19-5.50); Red Cell Distribution Width 15.9 % (11.5-14.5); Segmented Neutrophils % 92.8 %
[2018-02-16 04:38] LABS: BUN/Creatinine Ratio 41 (6-26); Blood Urea Nitrogen 39 mg/dL (8-23); Calcium 9.5 mg/dL (8.6-10.3); Carbon Dioxide 28 mEq/L (23-29); Chloride 100 mEq/L (98-107); Glucose 410 mg/dL (70-105); Magnesium 2.1 mg/dL (1.6-2.6); Osmolality,Calculated 311 (280-300); Phosphorous 2.6 mg/dL (2.7-4.5); Potassium 4.6 mEq/L (3.5-5.1); Sodium 137 mEq/L (136-145); eGFR For Non-African Americans > 60 (> 60)
[2018-02-16] MEDS ORDERED: Furosemide 20 MG/2 ML VIAL IVP ONE (07:25)
[2018-02-16] MEDS ORDERED: Insulin LISPRO 300 UNITS/3 ML VIAL SQ SCH ×5 (07:30→21:00)
--- NOTE | 2018-02-16 08:05 | Pulmonology Progress Note ---
<EvanbartVijay W - Last Filed: 02/16/18 08:21> Date of Encounter: 02/16/18 Objective PUL Vital signs: Last Vital Signs Temp 98.1 F 02/16/18 04:49 Pulse 87 02/16/18 07:45 Resp 16 02/16/18 07:52 BP 97/62 02/16/18 07:45 Pulse Ox 100 02/16/18 07:52 Results - Laboratory Findings CBC and BMP: 02/16/18 04:01 02/16/18 04:01 PT/INR, D-dimer PT 10.2 Seconds (9.4-12.1) 02/15/18 06:10 Abnormal lab findings: Abnormal lab results WBC 11.7 K/mcL (4.3-11.1) H 02/16/18 04:01 RBC 3.82 M/mcL (4.19-5.50) L 02/16/18 04:01 Hgb 11.5 g/dL (12.9-16.9) L 02/16/18 04:01 Hct 36.0 % (37.5-50.1) L 02/16/18 04:01 RDW 15.9 % (11.5-14.5) H 02/16/18 04:01 Neutrophils # 10.9 K/mcL (1.6-8.9) H 02/16/18 04:01 Lymphocytes # 0.4 K/mcL (0.6-4.6) L 02/16/18 04:01 Nucleated RBCs/100 WBC 0.2 /100 WBC (0) H 02/15/18 06:10 APTT 22.3 Seconds (26.0-36.0) L 02/15/18 06:10 VBG pCO2 54 mmHg (41-51) H 02/15/18 06:35 VBG pO2 55 mmHg (25-50) H 02/15/18 06:35 VBG HCO3 34 mEq/L (21-27) H 02/15/18 06:35 BUN 39 mg/dL (8-23) H 02/16/18 04:01 BUN/Creatinine Ratio 41 (6-26) H 02/16/18 04:01 Glucose 410 mg/dL (70-105) H 02/16/18 04:01 POC Glucose 366 mg/dL (70-99) H 02/16/18 07:23 Calculated Osmolality 311 (280-300) H 02/16/18 04:01 Phosphorus 2.6 mg/dL (2.7-4.5) L 02/16/18 04:01 Troponin I 0.04 ng/mL (< 0.04) H* 02/15/18 06:10 TSH 0.193 mcIU/mL (0.340-5.600) L 02/15/18 16:37 Urine Clarity Turbid (Clear) A 02/15/18 05:18 Ur Specific [place] 1.028 (1.010-1.025) H 02/15/18 05:18 Urine Glucose (UA) 250 mg/dL (Normal) H 02/15/18 05:18 Urine Blood Moderate (Negative) H 02/15/18 05:18 Ur Leukocyte Esterase Large (Negative) H 02/15/18 05:18 Urine Microscopic RBC 5-15 per hpf (0-3) H 02/15/18 05:18 Urine Microscopic WBC TNTC per hpf (0-3) H 02/15/18 05:18 Ur Squamous Epith Cells Many per lpf (None-Few) H 02/15/18 05:18 Urine Yeast Many per hpf (None Seen) H 02/15/18 05:18 Ur Culture Indicated? NO. (NO) A 02/15/18 05:18 - Clinical Findings Intake & Output: Intake & Output 02/15/18 02/16/18 02/16/18 23:59 07:59 15:59 Intake Total 2675 / 2675 750 / 750 Output Total 1150 / 1150 900 / 900 Balance 1525 / 1525 -150 / -150 Weight 138.6 kg Consult Discharge Plan - Plan Referrals: Hang Maldonado MD [Partnered Physician] - (Please schedule upon discharge) - Attending Attestation I examined this patient and my medical decision-making was reviewed with the Resident Physician. I agree with the documented findings, disposition and treatment plan as described except to the extent set forth below. We independently had [id number] contact with the patient Patient seen and examined at bedside Labs, radiology, chart personally reviewed. Management was reviewed during multidisciplinary critical care rounds. SOAKER: Patient awake and alert no focal deficits no evidence of encephalopathy Pulm: Chronic respiratory failure stable he has obstructive sleep apnea and will wear CPAP at night. Suspected mild to COPD exacerbation from pneumonia recommend 5 day burst of prednisone Cards: Blood pressure monitored and map has been stable systolic a little bit on the lower side overnight we will continue to monitor this GI: Continue ppi Nutrition: Advance diet as tolerated Renal: UOP Monitored, Cont to Trend sCr and monitor Electrolytes. ID: Patient has evidence of pneumonia he is on antibiotics white count is trending down remains afebrile cultures of been obtained thus far negative de- escalate based upon clinical course and microbiological data Heme/Onc: Chemical DVT prophylaxis given, the patient has evidence of metastatic lung cancer will need oncology follow-up Endo: Patient presented with hypoglycemia likely secondary to medication effect and sepsis. Now he is hyperglycemia off D5W we are restarting basal bolus insulin dosing for this. He has relative adrenal insufficiency without sick significant hypotension hyponatremia or hyperkalemia and with significant problems with hyperglycemia in the recent past I favor monitoring at this time his TSH is within normal limits. If any evidence of clinical deterioration would have a low threshold for starting stress dose hydrocortisone. 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 Lines: All lines examined without evidence of infection : Dispo: Stable for transfer to [facility] for ongoing care CODE: DNAR/DNI <Leland Ballesteros - Last Filed: 02/16/18 12:28> Date of Encounter: 02/16/18 Time of Encounter: 07:45 Assessment and Plan (1) Sepsis Current Visit: Yes Status: Acute Resolved Likely 2/2 PNA vs UTI Given empiric antibiotics in ED Started on aztreonam (day 2) and vancomycin (day 2) Patient presented hypoglycemic and hypothermic with AMS Temperature normal now WBC normalizing 19.6 > 11.7 Lactic acid 1.9 BP 107/70 Continue to monitor Put in orders for transfer to telemetry unit Qualifiers: Qualified Code(s): A41.9 - Sepsis, unspecified organism (2) Hypoglycemia Current Visit: Yes Status: Acute Per family, patient had a glucose of 43, started on D5 infusion Weaned off D5 Accucheck every 2 hours Current POC glucose is 336 Started on high dose sliding scale insulin Started 25 units levemir in morning Patient is tolerating a diabetic diet (3) Pneumonia Current Visit: Yes Status: Acute WBC downtredning 19.6 > 11.7 CXR concerning for pneumonia Given empiric Abx in ED Started on aztreonam (day 2) and vancomycin (day 2) Patient saturating at 98% on home dose of 3 L oxygen Blood cultures x2 (02/15) - no growth to date Qualifiers: Qualified Code(s): J18.9 - Pneumonia, unspecified organism (4) Acute on chronic respiratory failure Current Visit: Yes Status: Acute Patient's saturation is 98% on 3L high flow oxygen May be COPD exacerbation component Discontinued methylprednisolone Started 5 day burst of prednisone 40 mg PO (day 1) Continue bronchodilators CXR concerning for PNA Given empiric antibiotics in ED Started aztreonam and vancomycin Blood cultures x2 Qualifiers: Qualified Code(s): J96.20 - Acute and chronic respiratory failure, unspecified whether with hypoxia or hypercapnia (5) Hypothermia Current Visit: Yes Status: Acute Temp 95.1 on arrival, likely 2/2 hypoglycemia, started warming blanket Current temp is 98.1 without blanket May be a hypothyroid component Ordered TSH, started home dose of levothyroxine May be adrenal insufficiency Patient has low random cortisol (1.4) but responded well to ACTH stimulation test Likely has adrenal insufficiency, but no intervention at this time Qualifiers: Encounter type: initial encounter Qualified Code(s): T68.XXXA - Hypothermia , initial encounter (6) Altered mental status Current Visit: Yes Status: Resolved AMS upon arrival likely 2/2 hypoglycemia Resolved Qualifiers: Altered mental status type: unspecified Qualified Code(s): R41.82 - Altered mental status, unspecified (7) DVT prophylaxis Current Visit: Yes Status: Acute Subcutaneous lovenox Subjective Principal diagnosis: Hypoglycemia Interval history: Patient doing very well this morning. He is alert and oriented and asking for breakfast. He's resting comfortably on his home dose of 3L oxygen. Patient denies fevers/chills, lightheadedness, SOB, CP, abdominal pain. Objective PUL Vital signs: Last Vital Signs Temp 98.1 F 02/16/18 04:49 Pulse 76 02/16/18 06:00 Resp 16 02/16/18 07:52 BP 108/50 02/16/18 06:00 Pulse Ox 100 02/16/18 07:52 General appearance: no acute distress Eyes: nonicteric Effort: normal Auscultation: right: diminished breath sounds, bilateral: rales Cardiovascular: regular rate and rhythm Gastrointestinal: normoactive bowel sounds, soft, non-tender Integumentary: normal Extremities: no cyanosis, no edema, pink and warm, pulses normal, other (venous stasis changes in lower 1/3 of LE bilaterally) Musculoskeletal: no deformities normal mental status mood appropriate, affect normal Results - Laboratory Findings CBC and BMP: 02/16/18 04:01 02/16/18 04:01 PT/INR, D-dimer PT 10.2 Seconds (9.4-12.1) 02/15/18 06:10 Abnormal lab findings: Abnormal lab results WBC 11.7 K/mcL (4.3-11.1) H 02/16/18 04:01 RBC 3.82 M/mcL (4.19-5.50) L 02/16/18 04:01 Hgb 11.5 g/dL (12.9-16.9) L 02/16/18 04:01 Hct 36.0 % (37.5-50.1) L 02/16/18 04:01 RDW 15.9 % (11.5-14.5) H 02/16/18 04:01 Neutrophils # 10.9 K/mcL (1.6-8.9) H 02/16/18 04:01 Lymphocytes # 0.4 K/mcL (0.6-4.6) L 02/16/18 04:01 Nucleated RBCs/100 WBC 0.2 /100 WBC (0) H 02/15/18 06:10 APTT 22.3 Seconds (26.0-36.0) L 02/15/18 06:10 VBG pCO2 54 mmHg (41-51) H 02/15/18 06:35 VBG pO2 55 mmHg (25-50) H 02/15/18 06:35 VBG HCO3 34 mEq/L (21-27) H 02/15/18 06:35 BUN 39 mg/dL (8-23) H 02/16/18 04:01 BUN/Creatinine Ratio 41 (6-26) H 02/16/18 04:01 Glucose 410 mg/dL (70-105) H 02/16/18 04:01 POC Glucose 366 mg/dL (70-99) H 02/16/18 07:23 Calculated Osmolality 311 (280-300) H 02/16/18 04:01 Phosphorus 2.6 mg/dL (2.7-4.5) L 02/16/18 04:01 Troponin I 0.04 ng/mL (< 0.04) H* 02/15/18 06:10 TSH 0.193 mcIU/mL (0.340-5.600) L 02/15/18 16:37 Urine Clarity Turbid (Clear) A 02/15/18 05:18 Ur Specific [place] 1.028 (1.010-1.025) H 02/15/18 05:18 Urine Glucose (UA) 250 mg/dL (Normal) H 02/15/18 05:18 Urine Blood Moderate (Negative) H 02/15/18 05:18 Ur Leukocyte Esterase Large (Negative) H 02/15/18 05:18 Urine Microscopic RBC 5-15 per hpf (0-3) H 02/15/18 05:18 Urine Microscopic WBC TNTC per hpf (0-3) H 02/15/18 05:18 Ur Squamous Epith Cells Many per lpf (None-Few) H 02/15/18 05:18 Urine Yeast Many per hpf (None Seen) H 02/15/18 05:18 Ur Culture Indicated? NO. (NO) A 02/15/18 05:18 - Clinical Findings Intake & Output: Intake & Output 02/15/18 02/16/18 02/16/18 23:59 07:59 15:59 Intake Total 2675 / 2675 750 / 750 Output Total 1150 / 1150 900 / 900 Balance 1525 / 1525 -150 / -150 Weight 138.6 kg
[2018-02-16] MEDS: MethylPREDNISolone 40 MG/ML VIAL IVP SCH (08:19)
[2018-02-16] MEDS: Aztreonam 2,000 MG in Water for inj. (sterile) 20 ML 20 ML IVP SCH ×3 (08:19→23:17)
[2018-02-16] MEDS: Insulin LISPRO 300 UNITS/3 ML VIAL SQ SCH ×4 (08:20→20:27)
[2018-02-16] MEDS ORDERED: Insulin DETEMIR 100 UNIT/ML X5UNITS SQ SCH (09:00)
[2018-02-16] MEDS ORDERED: predniSONE 20 MG TABLET PO SCH (09:00)
[2018-02-16] MEDS ORDERED: *HR* Enoxaparin 30 MG/0.3 ML SYRINGE SQ SCH (11:30)
[2018-02-16] MEDS ORDERED: Insulin DETEMIR 100 UNIT/ML X5UNITS SQ ONE (13:54)
[2018-02-16] MEDS ORDERED: Nitroglycerin 0.4 MG TAB.SUBL SL PRN (14:18)
[2018-02-16] MEDS ORDERED: Dextrose Gel 15 GM/37.5 ML TUBE PO PRN ×2 (14:18)
[2018-02-16] MEDS ORDERED: D5% in Water 1,000 ML IVC PRN (14:18)
[2018-02-16] MEDS ORDERED: Albuterol 2.5 MG/3 ML NEBULIZER IH PRN (14:18)
[2018-02-16] MEDS ORDERED: *HR* Dextrose 50 % in Water (Syg) 50 ML SYRINGE IVP PRN (14:18)
[2018-02-16] MEDS ORDERED: Naloxone 0.4 MG/ML INJ IVP PRN (14:18)
[2018-02-16] MEDS ORDERED: Ipratropium/Albuterol Neb 3 ML IH SCH (16:00)
[2018-02-16] MEDS ORDERED: Ipratropium/Albuterol Neb 3 ML IH PRN (18:12)
[2018-02-16] MEDS: Metoprolol XL (24 HR) Succ 50 MG TAB.ER.24H PO SCH (18:49)
[2018-02-16] MEDS: Aspirin 81 MG TAB.CHEW PO SCH (18:50)
[2018-02-16] MEDS: *HR* Enoxaparin 30 MG/0.3 ML SYRINGE SQ SCH (20:27)
[2018-02-16] MEDS: Insulin DETEMIR 100 UNIT/ML X5UNITS SQ SCH (20:27)
[2018-02-16] MEDS: Budesonide/Formoterol 160/4.5 1 PUFF INH IH SCH (21:24)
[2018-02-17 06:12] LABS: Basophils # 0.1 K/mcL (0.0-0.2); Basophils % 0.3 %; Eosinophils % 0.1 %; Hematocrit 38.5 % (37.5-50.1); Hemoglobin 12.2 g/dL (12.9-16.9); Immature Granulocytes % 1.9 % (0-4); Lymphocytes # 0.9 K/mcL (0.6-4.6); Lymphocytes % 6.4 %; Mean Corpuscular HGB Conc 31.7 g/dL (31.6-35.5); Mean Corpuscular Volume 94.6 fL (83.0-100.0); Mean Platelet Volume 9.5 fL (9.4-12.4); Monocytes # 1.1 K/mcL (0.0-1.3); Monocytes % 7.6 %; Platelet Count 293 K/mcL (140-400); Red Blood Count 4.07 M/mcL (4.19-5.50); Red Cell Distribution Width 15.7 % (11.5-14.5); Segmented Neutrophils % 83.7 %
[2018-02-17 06:22] LABS: BUN/Creatinine Ratio 40 (6-26); Blood Urea Nitrogen 32 mg/dL (8-23); Calcium 9.7 mg/dL (8.6-10.3); Carbon Dioxide 31 mEq/L (23-29); Chloride 103 mEq/L (98-107); Glucose 138 mg/dL (70-105); Osmolality,Calculated 299 (280-300); Potassium 3.9 mEq/L (3.5-5.1); Sodium 140 mEq/L (136-145); eGFR For Non-African Americans > 60 (> 60)
[2018-02-17] MEDS: *HR* Enoxaparin 30 MG/0.3 ML SYRINGE SQ SCH ×2 (07:06→16:46)
[2018-02-17] MEDS: Insulin LISPRO 300 UNITS/3 ML VIAL SQ SCH ×4 (07:53→20:43)
[2018-02-17] MEDS ORDERED: predniSONE 20 MG TABLET PO SCH (09:00)
[2018-02-17] MEDS ORDERED: Insulin DETEMIR 100 UNIT/ML X5UNITS SQ SCH (09:00)
[2018-02-17] MEDS: Budesonide/Formoterol 160/4.5 1 PUFF INH IH SCH ×2 (09:56→20:49)
[2018-02-17] MEDS: Aztreonam 2,000 MG in Water for inj. (sterile) 20 ML 20 ML IVP SCH ×2 (10:21→16:47)
[2018-02-17] MEDS: Metoprolol XL (24 HR) Succ 50 MG TAB.ER.24H PO SCH (16:45)
[2018-02-17] MEDS: Aspirin 81 MG TAB.CHEW PO SCH (16:46)
--- NOTE | 2018-02-17 17:26 | Internal Med Progress Note ---
Hospitalist Progress Note - Encounter Date of Encounter: 02/17/18 Time of Encounter: 08:00 - Subjective Interval History: patient was seen and examined at bedside. has no complaints, son at bedside all questions answered tolerating PO diet respiratory status has improved denies fever, chills, chest pain, SOB, N/V/D - Exam Vitals: Temp Pulse Resp BP Pulse Ox 97.9 F 81 20 120/87 99 02/17/18 15:18 02/17/18 15:18 02/17/18 15:18 02/17/18 15:18 02/17/18 15:18 Exam: General: Patient is alert, oriented, no acute distress, morbidly obese, speaks in full sentences Head: atraumatic, normocephalic, Eye: normal appearance, PERRL, no scleral icterus, no conjunctival injection ENT: mucous membranes moist, normal external ear exam Neck: normal inspection, trachea midline, full ROM, no carotid bruits Chest: normal inspection, symmetric chest rise Respiratory: Decreased breath sounds secondary to body habitus, on CPAP, unable to appreciate any crackles at the mid axillary line Cardiovascular: Distant heart sounds secondary to body habitus Regular rate and rhythm. s1 and s2 No clicks, rubs, gallops, or murmors. Abdomen: Bowel sounds present normoactive x-4 quadrants. Abdomen is soft, nondistended. no Epigastric tenderness. No guarding or rebound. No organomegaly noted, obese musculoskeletal: Spontaneously moving all extremities. no edema, no calf tenderness Skin: warm, dry, intact. venous stasis changes above the ankle up to the knee Neuro: Alert and oriented x4. Sensation light touch intact. Cranial nerves 2- 12 is intact. Not aphasic, no focal deficits Psych: Patient's affect is normal - Assessment and Plan (1) Acute on chronic respiratory failure Current Visit: Yes Status: Acute Assessment and Plan: Patient's saturation is 98% on 3L high flow oxygen May be COPD exacerbation component Discontinued methylprednisolone Started 5 day burst of prednisone 40 mg PO (day 1) Continue bronchodilators CXR concerning for PNA continue aztreonam and vancomycin Blood cultures x2- NGTD CPAP at night pulmonolgy recommendations appreciated (2) Sepsis Current Visit: Yes Status: Acute Assessment and Plan: Resolved Likely 2/2 PNA vs UTI Started on aztreonam and vancomycin Patient presented hypoglycemic and hypothermic with AMS- resolved WBC trending down Lactic acid 1.9 BP/ HR controlled and stable Continue to monitor (3) Pneumonia Current Visit: Yes Status: Acute Assessment and Plan: management as per above (4) Hypoglycemia Current Visit: Yes Status: Acute Assessment and Plan: Per family, patient had a glucose of 43, started on D5 infusion Weaned off D5 prior to downgrade from ICU Started on high dose sliding scale insulin Started 25 units levemir in morning Patient is tolerating a diabetic diet (5) Hypothermia Current Visit: Yes Status: Acute Assessment and Plan: Temp 95.1 on arrival, likely 2/2 hypoglycemia, started warming blanket- resolved on home dose synthroid ? adrenal insufficiency ( no significant hypotension, hyponatremia or hyperkalemia, likely secondary to medication sepsis) Patient has low random cortisol (1.4) but responded well to ACTH stimulation test low threshold for starting stress dose of hydrocortisone needs formal follow up with Coding And Reimbursement Specialist as OP (6) Acute encephalopathy Current Visit: Yes Status: Acute Assessment and Plan: presented on admission secondary to hypoglycemia ( metabolic encephalopathy) - resolved will follow blood glucose closely (7) DVT prophylaxis Current Visit: Yes Status: Acute Assessment and Plan: lovenox 30 mg SC BID - Time Spent with Patient Total time spent is greater than 50% in coordination of care (as documented) at patient's floor/unit and/or counseling patient: Internal Medicine: Result - Labs CBC & Chem 7: 02/17/18 05:34 02/17/18 05:34 Labs: Short CBC 02/17/18 Range/Units 05:34 WBC 14.4 H (4.3-11.1) K/mcL Hgb 12.2 L (12.9-16.9) g/dL Hct 38.5 (37.5-50.1) % Plt Count 293 (140-400) K/mcL Neutrophils # 12.0 H (1.6-8.9) K/mcL BMP 02/17/18 05:34 Sodium 140 Potassium 3.9 Chloride 103 Carbon Dioxide 31 H BUN 32 H Creatinine 0.80 Glucose 138 H Calcium 9.7 - ABG Interpretation ABG results: PT/INR, D-dimer PT 10.2 Seconds (9.4-12.1) 02/15/18 06:10 Consult Discharge Plan - Plan Referrals: Hang Maldonado MD [Partnered Physician] - (Please schedule upon discharge) (1) Acute on chronic respiratory failure Qualifiers: Qualified Code(s): J96.20 - Acute and chronic respiratory failure, unspecified whether with hypoxia or hypercapnia (2) Sepsis Qualifiers: Qualified Code(s): A41.9 - Sepsis, unspecified organism (3) Pneumonia Qualifiers: Qualified Code(s): J18.9 - Pneumonia, unspecified organism (5) Hypothermia Qualifiers: Encounter type: initial encounter Qualified Code(s): T68.XXXA - Hypothermia, initial encounter
[2018-02-17] MEDS: predniSONE 20 MG TABLET PO SCH (20:46)
[2018-02-17] MEDS: Insulin DETEMIR 100 UNIT/ML X5UNITS SQ SCH (23:27)
[2018-02-18] MEDS: Aztreonam 2,000 MG in Water for inj. (sterile) 20 ML 20 ML IVP SCH ×2 (01:25→11:03)
[2018-02-18 01:57] LABS: Hematocrit 40.3 % (37.5-50.1); Hemoglobin 12.6 g/dL (12.9-16.9); Mean Corpuscular HGB Conc 31.3 g/dL (31.6-35.5); Mean Corpuscular Hemoglobin 29.9 pg (28.0-33.3); Mean Corpuscular Volume 95.5 fL (83.0-100.0); Mean Platelet Volume 9.6 fL (9.4-12.4); Platelet Count 290 K/mcL (140-400); Red Blood Count 4.22 M/mcL (4.19-5.50); Red Cell Distribution Width 15.6 % (11.5-14.5)
[2018-02-18 02:17] LABS: BUN/Creatinine Ratio 43 (6-26); Blood Urea Nitrogen 30 mg/dL (8-23); Calcium 9.7 mg/dL (8.6-10.3); Carbon Dioxide 29 mEq/L (23-29); Chloride 103 mEq/L (98-107); Glucose 84 mg/dL (70-105); Osmolality,Calculated 291 (280-300); Sodium 138 mEq/L (136-145); eGFR For Non-African Americans > 60 (> 60)
[2018-02-18] MEDS: *HR* Enoxaparin 30 MG/0.3 ML SYRINGE SQ SCH ×2 (07:01→17:44)
[2018-02-18] MEDS: Insulin LISPRO 300 UNITS/3 ML VIAL SQ SCH ×4 (07:45→21:24)
[2018-02-18] MEDS: Budesonide/Formoterol 160/4.5 1 PUFF INH IH SCH ×2 (08:10→20:06)
[2018-02-18] MEDS: predniSONE 20 MG TABLET PO SCH (11:03)
--- NOTE | 2018-02-18 11:33 | Electrocardiograph Report ---
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
--- NOTE | 2018-02-18 11:56 | Internal Med Progress Note ---
Hospitalist Progress Note - Encounter Date of Encounter: 02/18/18 Time of Encounter: 09:15 - Subjective Interval History: Patient feels somewhat better today. He is currently on CPAP. Shortness of breath is improving slowly. Denies any chest pain. Does have some cough. Tolerating diet well. No fevers or chills reported overnight. - Exam Vitals: Temp Pulse Resp BP Pulse Ox 97.9 F 60 16 143/88 97 02/18/18 07:15 02/18/18 07:15 02/18/18 07:15 02/18/18 07:15 02/18/18 07:15 Exam: General: Patient is alert, no acute distress, oriented x 3, morbidly obese, Respiratory: Diminished breath sounds at both bases. Mild wheezing. Cardiovascular: Regular rate and rhythm. s1 and s2 normal No clicks, rubs, gallops, or murmurs. Mild pedal edema Abdomen: Abdomen is soft, nontender. Bowel sounds are present Musculoskeletal: Spontaneously moving all extremities , Skin: warm, dry, intact. Neuro: Alert oriented x 3 normal cranial nerves, no focal deficits - Assessment and Plan (1) Pneumonia Current Visit: Yes Status: Suspected Assessment and Plan: Improving. WBC count trending down. Will begin to de-escalate antibiotics. Cultures are so far negative. (2) Hypoglycemia Current Visit: Yes Status: Acute Assessment and Plan: Blood sugars are somewhat better today. We will continue to monitor. Decreased long-acting insulin dosage to 15 units Levemir in the morning and 10 units at bedtime. Continue sliding scale coverage. (3) Hypothermia Current Visit: Yes Status: Resolved Assessment and Plan: Most likely related to hypoglycemia. (4) DVT prophylaxis Current Visit: Yes Status: Acute Assessment and Plan: On Lovenox (5) Acute on chronic respiratory failure Current Visit: Yes Status: Acute Assessment and Plan: Due to pneumonia with underlying sleep apnea and COPD exacerbation. (6) Sepsis Current Visit: Yes Status: Suspected Assessment and Plan: With pneumonia. Being treated with IV antibiotics. We will begin to de- escalate to oral antibiotics. Cultures have been negative so far. (7) Acute encephalopathy Current Visit: Yes Status: Resolved Assessment and Plan: Most likely related to hypoglycemia. - Time Spent with Patient Total time spent is greater than 50% in coordination of care (as documented) at patient's floor/unit and/or counseling patient: Internal Medicine: Result - Labs CBC & Chem 7: 02/18/18 01:30 02/18/18 01:30 Labs: Short CBC 02/18/18 Range/Units 01:30 WBC 12.1 H (4.3-11.1) K/mcL Hgb 12.6 L (12.9-16.9) g/dL Hct 40.3 (37.5-50.1) % Plt Count 290 (140-400) K/mcL BMP 02/18/18 01:30 Sodium 138 Potassium 4.0 Chloride 103 Carbon Dioxide 29 BUN 30 H Creatinine 0.69 L Glucose 84 Calcium 9.7 - ABG Interpretation ABG results: PT/INR, D-dimer PT 10.2 Seconds (9.4-12.1) 02/15/18 06:10 Consult Discharge Plan - Plan Referrals: Hang Maldonado MD [Partnered Physician] - (Please schedule upon discharge) Juan Abraham [Primary Care Provider] - (1) Pneumonia Qualifiers: Pneumonia type: due to methicillin-resistant Staphylococcus aureus (MRSA) Laterality: right Lung location: lower lobe of lung Qualified Code(s): J15.212 - Pneumonia due to Methicillin resistant Staphylococcus aureus (3) Hypothermia Qualifiers: Encounter type: initial encounter Qualified Code(s): T68.XXXA - Hypothermia, initial encounter (5) Acute on chronic respiratory failure Qualifiers: Respiratory failure complication: hypoxia Qualified Code(s): J96.21 - Acute and chronic respiratory failure with hypoxia (6) Sepsis Qualifiers: Sepsis type: methicillin resistant Staphylococcus aureus Qualified Code(s): A41.02 - Sepsis due to Methicillin resistant Staphylococcus aureus
[2018-02-18] MEDS: Insulin DETEMIR 100 UNIT/ML X5UNITS SQ SCH (13:13)
[2018-02-18 13:33] LABS: Adenovirus Not Detected (Not Detect); Bordetella Pertussis Not Detected (Not Detect); Chlamydophila pneumoniae Not Detected (Not Detect); Coronavirus 229E Not Detected (Not Detect); Coronavirus HKU1 Not Detected (Not Detect); Coronavirus NL63 Not Detected (Not Detect); Coronavirus OC43 Not Detected (Not Detect); Human Metapneumovirus Not Detected (Not Detect); Human Rhinovirus/Enterovirus Not Detected (Not Detect); Influenza A Subtype 2009 H1 Not Detected (Not Detect); Influenza A Untypeable Not Detected (Not Detect); Influenza B Not Detected (Not Detect); Mycoplasma pneumoniae Not Detected (Not Detect); Parainfluenza Virus 1 Not Detected (Not Detect); Parainfluenza Virus 2 Not Detected (Not Detect); Parainfluenza Virus 3 Not Detected (Not Detect); Parainfluenza Virus 4 Not Detected (Not Detect); Respiratory Syncytial Virus Not Detected (Not Detect)
[2018-02-18] MEDS: Metoprolol XL (24 HR) Succ 50 MG TAB.ER.24H PO SCH (17:44)
[2018-02-18] MEDS: Aspirin 81 MG TAB.CHEW PO SCH (17:44)
[2018-02-18] MEDS ORDERED: Insulin DETEMIR 100 UNIT/ML X5UNITS SQ SCH (21:00)
[2018-02-18] MEDS: Cefdinir 300 MG CAPSULE PO SCH (21:21)
[2018-02-18] MEDS: Doxycycline 100 MG CAPSULE PO SCH (21:21)
[2018-02-19] MEDS: *HR* Enoxaparin 30 MG/0.3 ML SYRINGE SQ SCH ×2 (06:32→17:20)
[2018-02-19] MEDS: Budesonide/Formoterol 160/4.5 1 PUFF INH IH SCH ×2 (08:20→21:54)
[2018-02-19 08:31] LABS: Basophils # 0.1 K/mcL (0.0-0.2); Basophils % 0.7 %; Eosinophils # 0.2 K/mcL (0.0-0.6); Eosinophils % 1.5 %; Hematocrit 41.9 % (37.5-50.1); Hemoglobin 13.3 g/dL (12.9-16.9); Immature Granulocytes % 2.5 % (0-4); Lymphocytes # 2.1 K/mcL (0.6-4.6); Lymphocytes % 16.6 %; Mean Corpuscular HGB Conc 31.7 g/dL (31.6-35.5); Mean Corpuscular Hemoglobin 30.2 pg (28.0-33.3); Mean Platelet Volume 9.7 fL (9.4-12.4); Monocytes # 1.2 K/mcL (0.0-1.3); Monocytes % 9.4 %; Neutrophils # 8.6 K/mcL (1.6-8.9); Platelet Count 281 K/mcL (140-400); Red Blood Count 4.41 M/mcL (4.19-5.50); Red Cell Distribution Width 15.6 % (11.5-14.5); Segmented Neutrophils % 69.3 %
[2018-02-19] MEDS: Insulin LISPRO 300 UNITS/3 ML VIAL SQ SCH ×4 (09:03→21:56)
[2018-02-19] MEDS ORDERED: Aminoglycoside Consult 1 EACH MC ONE (09:14)
[2018-02-19] MEDS: Insulin DETEMIR 100 UNIT/ML X5UNITS SQ SCH (10:21)
[2018-02-19] MEDS: predniSONE 20 MG TABLET PO SCH (10:22)
[2018-02-19] MEDS: Doxycycline 100 MG CAPSULE PO SCH ×2 (10:22→21:56)
[2018-02-19] MEDS: Cefdinir 300 MG CAPSULE PO SCH ×2 (10:22→21:55)
--- NOTE | 2018-02-19 11:14 | Internal Med Progress Note ---
Hospitalist Progress Note - Encounter Date of Encounter: 02/19/18 Time of Encounter: 09:20 - Subjective Interval History: Patient is lying in bed. Comfortable. CPAP mask in place. Denies any new complaints at this time. Shortness of breath is improving. His blood sugar was 63 this morning. Denies any sweating or palpitations. - Exam Vitals: Temp Pulse Resp BP Pulse Ox 98.8 F 72 20 154/95 95 02/19/18 10:50 02/19/18 10:50 02/19/18 10:50 02/19/18 10:50 02/19/18 10:50 Exam: General: Patient is alert, morbidly obese, mild distress, oriented x 3 Respiratory: Good respiratory effort. Decreased breath sounds at both bases. No wheezing or crackles. Cardiovascular: Regular rate and rhythm. s1 and s2 normal No clicks, rubs, gallops, or murmurs. Trace pedal edema Abdomen: Abdomen is soft, nontender. Bowel sounds are present Musculoskeletal: Spontaneously moving all extremities Skin: warm, dry, intact. Neuro: Alert oriented x 3 normal cranial nerves, no focal deficits - Assessment and Plan (1) Acute on chronic respiratory failure Current Visit: Yes Status: Acute Assessment and Plan: Continue supportive care. Treat underlying conditions. CPAP as needed. (2) Pneumonia Current Visit: Yes Status: Acute Assessment and Plan: Clinically, patient continues to improve. WBC count is stable. Patient is currently on Omnicef and doxycycline. We will continue these antibiotics. We will begin to taper steroids. (3) Hypoglycemia Current Visit: Yes Status: Acute Assessment and Plan: Patient's blood glucose was 63 this morning. We will stop nighttime Levemir dosage. Continue daytime dosage. Continue to monitor blood sugars closely. (4) Hypothermia Current Visit: Yes Status: Resolved (5) DVT prophylaxis Current Visit: Yes Status: Acute Assessment and Plan: Continue Lovenox (6) Sepsis Current Visit: Yes Status: Suspected Assessment and Plan: Continue treating with antibiotics as recommended above. Blood cultures have been negative. (7) Acute encephalopathy Current Visit: Yes Status: Resolved - Time Spent with Patient Total time spent is greater than 50% in coordination of care (as documented) at patient's floor/unit and/or counseling patient: Internal Medicine: Result - Labs CBC & Chem 7: 02/19/18 08:14 02/18/18 01:30 Labs: Short CBC 10/14/18 Range/Units 08:14 WBC 12.4 H (4.3-11.1) K/mcL Hgb 13.3 (12.9-16.9) g/dL Hct 41.9 (37.5-50.1) % Plt Count 281 (140-400) K/mcL Neutrophils # 8.6 (1.6-8.9) K/mcL - ABG Interpretation ABG results: PT/INR, D-dimer PT 10.2 Seconds (9.4-12.1) 02/15/18 06:10 Consult Discharge Plan - Plan Referrals: Hang Maldonado MD [Partnered Physician] - (Please schedule upon discharge) Juan Abraham [Primary Care Provider] - (1) Acute on chronic respiratory failure Qualifiers: Respiratory failure complication: hypoxia Qualified Code(s): J96.21 - Acute and chronic respiratory failure with hypoxia (2) Pneumonia Qualifiers: Pneumonia type: due to unspecified organism Laterality: right Lung location : lower lobe of lung Qualified Code(s): J18.1 - Lobar pneumonia, unspecified organism (4) Hypothermia Qualifiers: Encounter type: initial encounter Qualified Code(s): T68.XXXA - Hypothermia, initial encounter (6) Sepsis Qualifiers: Sepsis type: methicillin resistant Staphylococcus aureus Qualified Code(s): A41.02 - Sepsis due to Methicillin resistant Staphylococcus aureus
[2018-02-19] MEDS: Metoprolol XL (24 HR) Succ 50 MG TAB.ER.24H PO SCH (17:19)
[2018-02-19] MEDS: Aspirin 81 MG TAB.CHEW PO SCH (17:20)
[2018-02-20] MEDS: *HR* Enoxaparin 30 MG/0.3 ML SYRINGE SQ SCH ×2 (05:44→17:53)
[2018-02-20] MEDS: Doxycycline 100 MG CAPSULE PO SCH (08:30)
[2018-02-20] MEDS: Cefdinir 300 MG CAPSULE PO SCH (08:31)
[2018-02-20] MEDS: predniSONE 20 MG TABLET PO SCH (08:31)
[2018-02-20] MEDS: Insulin LISPRO 300 UNITS/3 ML VIAL SQ SCH ×3 (08:32→17:37)
[2018-02-20] MEDS: Insulin DETEMIR 100 UNIT/ML X5UNITS SQ SCH (08:42)
[2018-02-20] MEDS: Budesonide/Formoterol 160/4.5 1 PUFF INH IH SCH (10:27)
--- NOTE | 2018-02-20 11:36 | Discharge Summary ---
- NOTES TO OUTPATIENT PROVIDER Notes to Outpatient Provider: Patient was hospitalized initially in the ICU for acute respiratory failure and sepsis. He was started on treatment with steroids , BiPAP and also on antibiotics to treat possible underlying pneumonia. His symptoms slowly improved. Patient was also hypoglycemic on presentation. He received dextrose with improvement in his blood sugars. Patient was treated with broad-spectrum antibiotics for his pneumonia. He clinically improved and was transferred out of ICU 3 days back. Since then he has been recovering well on the floor. He has been evaluated by physical therapy and recommended placement to [facility]. [facility]. Patient will be discharged to skilled rehabilitation when he has a bed available. He is now receiving Omnicef and doxycycline to complete antibiotic course. His cultures have been negative. He is also on a steroid taper. His blood sugars have been very brittle and we have adjusted his insulin regimen. This will need to be closely monitored at the skilled rehabilitation after discharge. Date of Encounter: 02/20/18 Time of Encounter: 11:36 - Discharge Diagnosis (1) Acute on chronic respiratory failure Priority: Primary Status: Acute Qualifiers: Respiratory failure complication: hypoxia Qualified Code(s): J96.21 - Acute and chronic respiratory failure with hypoxia (2) Pneumonia Priority: Secondary Status: Acute Qualifiers: Pneumonia type: due to unspecified organism Laterality: right Lung location: lower lobe of lung Qualified Code(s): J18.1 - Lobar pneumonia, unspecified organism (3) Sepsis Priority: Secondary Status: Suspected Qualifiers: Sepsis type: methicillin resistant Staphylococcus aureus Qualified Code(s) : A41.02 - Sepsis due to Methicillin resistant Staphylococcus aureus (4) Hypoglycemia Priority: Secondary Status: Resolved (5) Hypothermia Priority: Secondary Status: Resolved Qualifiers: Encounter type: initial encounter Qualified Code(s): T68.XXXA - Hypothermia , initial encounter (6) DVT prophylaxis Priority: Secondary Status: Acute (7) Acute encephalopathy Priority: Secondary Status: Resolved Hospital course: Mr. Flores is a 72 year old male Patient with history of underlying COPD, obstructive sleep apnea, diabetes, hypertension who was hospitalized initially in the ICU for acute respiratory failure and sepsis. He was started on treatment with steroids, BiPAP and also on antibiotics to treat possible underlying pneumonia. His symptoms slowly improved. Patient was also hypoglycemic on presentation. He received dextrose with improvement in his blood sugars. Patient was treated with broad-spectrum antibiotics for his pneumonia. He clinically improved and was transferred out of ICU 3 days back. Since then he has been recovering well on the floor. He has been evaluated by physical therapy and recommended placement to skilled [facility]. [facility]. Patient will be discharged to skilled rehabilitation when he has a bed available. He is now receiving Omnicef and doxycycline to complete antibiotic course. His cultures have been negative. He is also on a steroid taper. His blood sugars have been very brittle and we have adjusted his insulin regimen. This will need to be closely monitored at the skilled rehabilitation after discharge. Discharge discussed with: patient, nurse, case management - Time Spent with Patient Total time spent providing and/or coordinating discharge services: Greater than 30 minutes (35 min) - Discharge Medications Prescriptions: Cefdinir [Omnicef] 300 mg PO BID #10 capsule Doxycycline 100 mg PO BID #10 capsule predniSONE [PredniSONE] 10 mg PO DAILY 9 Days tablet Home Medications: Nitroglycerin [Nitrostat] 0.4 mg SL PRN PRN 03/24/15 [History] Aspirin 81 mg PO QPM 09/22/15 [History] Cyanocobalamin (B-12) [Vitamin B12] 1,000 mcg IM QMONTH 07/22/16 [History] Insulin Lispro Protamin/Lispro [Humalog Mix 75-25 Vial] 12 unit SQ BIDWM [History] Ipratropium/Albuterol Neb [Duoneb] 3 ml IH Q6HR PRN 07/22/16 [History] Saxagliptin HCl [Onglyza] 2.5 mg PO DAILY 07/22/16 [History] Azelastine 0.1% Nasal [place] [Astelin] 1 puff NS BID 11/15/17 [History] Albuterol Sulfate [Ventolin Hfa] 2 puff IH Q6H PRN 01/17/18 [History] Levothyroxine [Synthroid] 150 mcg PO DAILY #30 tablet 01/17/18 [Rx] Clopidogrel [Plavix] 75 mg PO DAILY tablet 01/21/18 [Rx] Metoprolol XL (24 HR) Succ [Toprol Xl] 200 mg PO DAILY 01/22/18 [History] Isosorbide MONOnitrate (24 HR) [Imdur] 60 mg PO DAILY #30 tab.er.24h 02/10/18 [ Rx] Acetylcysteine [O-Llonfo-t-Cysteine] 600 mg PO BID 02/15/18 [History] Ammonium Lactate [Nadira-Hydrolac] 1 appl TP BID PRN 02/15/18 [History] Budesonide/Formoterol 160/4.5 [Symbicort 160/4.5] 2 puff IH BIDR 02/15/18 [ History] Bumetanide [Bumex] 2 mg PO BID 02/15/18 [History] Diltiazem HCl [Diltiazem ER] 120 mg PO QPM 02/15/18 [History] Ergocalciferol (VITAMIN D2) [Vitamin D2] 50,000 unit PO SA 02/15/18 [History] Potassium Chloride [Klor-Con 10] 10 meq PO HS 02/15/18 [History] Potassium Chloride [Klor-Con 10] 20 meq PO DAILY 02/15/18 [History] Cefdinir [Omnicef] 300 mg PO BID #10 capsule 02/20/18 [Rx] Doxycycline 100 mg PO BID #10 capsule 02/20/18 [Rx] Insulin Glargine,Hum.rec.anlog [Lantus Solostar] 15 unit SQ QAM #0 02/20/18 [Rx] predniSONE [PredniSONE] 10 mg PO DAILY 9 Days tablet 02/20/18 [Rx] Allergies/Adverse Reactions: 3 Allergy/AdvReac Type Severity Reaction Status Date / Time Amoxicillin Allergy Hives Verified 01/16/18 18:39 adhesive AdvReac Rash Verified 01/16/18 18:39 Date of admission: 02/15/18 11:08 Primary care physician: Juan Abraham Consults: 02/17/18 09:44 Consult to Occupational Therapy [CONS] Routine Comment: Evaluate, develop and implement POC Reason for Consult: weak Does patient have active BEDREST order?: No Is patient medically & hemodynamically stable?: No Patient assessed for mobility or mobilized this visit?: Yes Consult to Physical Therapy [CONS] Routine Comment: Evaluate, develop and implement POC Reason for Consult: weak Does patient have active BEDREST order?: No Is patient medically & hemodynamically stable?: No Patient assessed for mobility or mobilized this visit?: Yes Discharging clinician: Srujan Ameda Anticipated date of discharge: 02/20/18 - Constitutional Vitals: Temp Pulse Resp BP Pulse Ox 98.2 F 79 16 102/59 100 02/20/18 10:25 02/20/18 10:25 02/20/18 10:27 02/20/18 10:25 02/20/18 10:27 General appearance: Present: cooperative, mild distress, A&O X 3, morbidly obese , answers questions appropriately Exam: . - Respiratory Respiratory exam: Present: decreased breath sounds (Diminished breath sounds bilaterally), prolonged expiratory phase, wheezes. Absent: accessory muscle use , rales, rhonchi - Cardiovascular Cardiovascular exam: Present: RRR, +S1, +S2. Absent: diastolic murmur, gallop, rubs, systolic murmur - GI/Abdominal GI/Abdominal exam: Present: normal bowel sounds, soft, no peritoneal signs. Absent: distended, tenderness - Extremities Exam Extremities exam: Present: pedal edema, warm, radial pulses palpable and symmetrical. Absent: calf tenderness, cyanotic - Patient Status Disposition: Transfer SNF Condition: Good Functional capacity at discharge: wheelchair bound Overall status at discharge: patient is progressing back to baseline - Discharge Instructions Follow Up With: Hang Maldonado MD [Partnered Physician] - (Please schedule upon discharge) Juan Abraham [Primary Care Provider] - (In 1-2 weeks) - Diet and Activity Activity: increase activity as tolerated, wear oxygen at night Diet: diabetic diet, low fat, low cholesterol, low salt diet, other (Fluid restriction to 1.5 L per day)
--- NOTE | 2018-02-20 11:47 | Physician Discharge Referral ---
[facility] Referral Info Provider in Charge after Transfer: PCP Institutional Level of Care: Skilled - Diagnosis (1) Acute on chronic respiratory failure Priority: Primary Status: Acute (2) Pneumonia Priority: Secondary Status: Acute (3) Sepsis Priority: Secondary Status: Suspected (4) Hypoglycemia Priority: Secondary Status: Resolved (5) Hypothermia Priority: Secondary Status: Resolved (6) DVT prophylaxis Priority: Secondary Status: Acute (7) Acute encephalopathy Priority: Secondary Status: Resolved Prognosis: Fair Aware of Diagnosis: Patient Aware of Prognosis: Patient - Transfer Medications Prescriptions: Cefdinir [Omnicef] 300 mg PO BID #10 capsule Doxycycline 100 mg PO BID #10 capsule predniSONE [PredniSONE] 10 mg PO DAILY 9 Days tablet Home Medications: Nitroglycerin [Nitrostat] 0.4 mg SL PRN PRN 03/24/15 [History] Aspirin 81 mg PO QPM 09/22/15 [History] Cyanocobalamin (B-12) [Vitamin B12] 1,000 mcg IM QMONTH 07/22/16 [History] Insulin Lispro Protamin/Lispro [Humalog Mix 75-25 Vial] 12 unit SQ BIDWM [History] Ipratropium/Albuterol Neb [Duoneb] 3 ml IH Q6HR PRN 07/22/16 [History] Saxagliptin HCl [Onglyza] 2.5 mg PO DAILY 07/22/16 [History] Azelastine 0.1% Nasal [place] [Astelin] 1 puff NS BID 11/15/17 [History] Albuterol Sulfate [Ventolin Hfa] 2 puff IH Q6H PRN 01/17/18 [History] Levothyroxine [Synthroid] 150 mcg PO DAILY #30 tablet 01/17/18 [Rx] Clopidogrel [Plavix] 75 mg PO DAILY tablet 01/21/18 [Rx] Metoprolol XL (24 HR) Succ [Toprol Xl] 200 mg PO DAILY 01/22/18 [History] Isosorbide MONOnitrate (24 HR) [Imdur] 60 mg PO DAILY #30 tab.er.24h 02/10/18 [ Rx] Acetylcysteine [K-Tfyghk-e-Cysteine] 600 mg PO BID 02/15/18 [History] Ammonium Lactate [Nadira-Hydrolac] 1 appl TP BID PRN 02/15/18 [History] Budesonide/Formoterol 160/4.5 [Symbicort 160/4.5] 2 puff IH BIDR 02/15/18 [ History] Bumetanide [Bumex] 2 mg PO BID 02/15/18 [History] Diltiazem HCl [Diltiazem ER] 120 mg PO QPM 02/15/18 [History] Ergocalciferol (VITAMIN D2) [Vitamin D2] 50,000 unit PO SA 02/15/18 [History] Potassium Chloride [Klor-Con 10] 10 meq PO HS 02/15/18 [History] Potassium Chloride [Klor-Con 10] 20 meq PO DAILY 02/15/18 [History] Cefdinir [Omnicef] 300 mg PO BID #10 capsule 02/20/18 [Rx] Doxycycline 100 mg PO BID #10 capsule 02/20/18 [Rx] Insulin Glargine,Hum.rec.anlog [Lantus Solostar] 15 unit SQ QAM #0 02/20/18 [Rx] predniSONE [PredniSONE] 10 mg PO DAILY 9 Days tablet 02/20/18 [Rx] Allergies/Adverse Reactions: 3 Allergy/AdvReac Type Severity Reaction Status Date / Time Amoxicillin Allergy Hives Verified 01/16/18 18:39 adhesive AdvReac Rash Verified 01/16/18 18:39 - Respiratory Orders Oxygen / L per min (Keep sats greater than 90%) Smoking Cessation: Smoking cessation has been advised. For more information, call the [place] Tobacco Quit Line at 6-667-HXLI-NOW. - Advance Directives Code Status: DNR-Arrest/Don't Intubate - Mobility Orders Ambulate (Per physical therapy) - Rehabiliation Orders Rehab Potential: Fair Rehab Orders: Evaluation for Physical Therapy, Evaluation for Occupational Therapy - Diet Orders No Concentrated Sweets (Diabetic), Cardiac CERTIFICATION: I certify that the transfer of the above named patient to an Extended Care Facility is necessary for the continuing treatment of the diagnosis listed. The above information is true and accurate reflection of patient's current condition. Confidential - Redisclosure prohibited without a patient's written consent.
[2018-02-20 14:35] VITALS: BP 129/85
[2018-02-20] MEDS: Aspirin 81 MG TAB.CHEW PO SCH (17:37)
[2018-02-21] MEDS ORDERED: predniSONE 20 MG TABLET PO SCH (09:00)
== END 2018-02-20 18:37 | disposition other institution (70) | DRG 871 ==
LOC: ICNU 04:16 → EMEROOARM 04:16 → SUATTDRO 11:08 → ICNU 11:50 → 2SOUTHHOLD 02-17 02:58 → 3ANU 02-17 19:59
PROVIDERS: ADMIT Internal Medicine Hospice and Palliative Medicine; ATTEND Internal Medicine